=== PATIENT | female | born 1940 | race Caucasian/White ===

== ENCOUNTER 2017-04-22 11:53 | Observation (INO) | payer MEDICARE, OTHER ==
[~2017-04-22] VITALS: Ht 144.8 cm; Wt 41.0 kg
[~2017-04-22 11:53] MED LIST: ADV25050 INH; BENA5TAB2 PO; CALC500T PO; CILO50TA PO; DICL100G37 TOP; ESCI10TA PO; FURO-110 PO; ISOS30TA5 PO; METO-448 PO; NIT4 SL; OMEG-135 PO; OMEP40CA3 PO; PRED10TA PO; RANO10002 PO; SIMV10TA PO; TIOT18CA IH; TRIA15CR55 TOP; VITA1TAB2 PO
[2017-04-22] MEDS ORDERED: ONDANSETRON (ODT) 4 MG TAB ODT STA (12:04)
[2017-04-22] MEDS ORDERED: HYDROCODONE/APAP (5/325) TAB PO ONE (12:30)
--- NOTE | 2017-04-22 12:54 | ERD ---
ER Documentation Chief Complaint Date/Time DATE: 04/22/17 TIME: 12:51 Chief Complaint HPI This is a 76-year-old female who presents via EMS with mechanical fall and right shoulder pain. An wax pattern repairer was used. She describes just prior to arrival she was in the shower and slipped and fell. The patient now has pain and deformity to the proximal humerus of the right upper extremity. She denies head trauma or loss of consciousness, no neck pain. She describes mild right- sided upper rib pain. No shortness of breath, no abdominal pain or mid back pain. ROS All systems reviewed and are negative except as per history of present illness. Medications Home Meds Reported Medications Prednisone* (Prednisone*) 10 Mg Tab, 40 MG PO FOR 2 DAYS, TAB 07/23/14 Cilostazol* (Cilostazol*) 50 Mg Tablet, 50 MG PO BID, TAB 07/23/14 Diclofenac Sodium* (Voltaren* Gel) 1% -100 Gm Gel, 2 GM TOP TID, TUB 07/23/14 Salmeterol Xinaf/Fluticasone* (Advair*) 250-50 Diskus Inhaler, 1 INH INH BID, INH 07/23/14 Triamcinolone Acetonide* (Kenalog*) 0.1%-15GM Cr, 1 APPLIC TOP BID, EA 07/23/14 Calcium Carbonate* (Os-Shay 500*) 1 Tab Tablet, 1 TAB PO TID, TAB 07/23/14 Simvastatin* (Zocor*) 10 Mg Tablet, 10 MG PO HS, TAB 07/23/14 Tiotropium [place]* (Spiriva*) 18 Mcg Cap.w.dev, 1 INH IH DAILY, EA 07/23/14 Escitalopram Oxalate* (Lexapro*) 10 Mg Tablet, 10 MG PO DAILY, TAB 07/23/14 Vitamin B Complex (Super B Complex) 1 Tab Tablet, 1 TAB PO DAILY 07/23/14 Fish Oil* (Fish Oil*) 1,000 Mg Cap, 1000 MG PO DAILY, CAP 07/23/14 Ranolazine* (Ranexa*) 1,000 Mg Tab.sr.12h, 1000 MG PO QHS, TAB 07/23/14 Omeprazole* (Prilosec*) 40 Mg Capsule.dr, 40 MG PO DAILY, CAP 07/23/14 Nitroglycerin* (Nitrostat*) 0.4 Mg Tab.subl, 0.4 MG SL Q5MIN Y for CHEST PAIN, BOTTLE 07/23/14 Metoprolol Tartrate* (Lopressor*) 25 Mg Tab, 25 MG PO DAILY, TAB 07/23/14 Isosorbide Mononitrate* (Isosorbide Mononitrate*) 30 Mg Tab.er.24h, 30 MG PO BID , TAB 07/23/14 Furosemide* (Lasix*) 20 Mg Tablet, 20 MG PO DAILY, TAB 07/23/14 Benazepril Hcl* (Benazepril Hcl*) 5 Mg Tablet, 5 MG PO DAILY, TAB 07/23/14 Allergies Allergies: Coded Allergies: dexamethasone (Verified Allergy, Intermediate, SKIN RASHES REDNESS, ) Uncoded Allergies: UNKNOWN ANTIHYPERTENSIVE (Allergy, Severe, 04/30/11) PMhx/Soc History of Surgery: Yes (tubal ligation) Anesthesia Reaction: No Hx Neurological Disorder: No Hx Respiratory Disorders: Yes (copd,pulmonary fibrosis) Hx Cardiac Disorders: Yes (htn) Hx Psychiatric Problems: No Hx Miscellaneous Medical Probl: Yes (HTN) Hx Alcohol Use: No Hx Substance Use: No Hx Tobacco Use: No Smoking Status: Never smoker FmHx Family History: No diabetes Physical Exam Vitals Vital Signs Date Time Temp Pulse Resp B/P Pulse Ox O2 Delivery O2 Flow Rate FiO2 04/22/17 12:38 99.9 74 16 177/75 92 Physical Exam Airway is intact Bilateral breath sounds Strong distal pulses No obvious deficits General: Well developed, well nourished, no acute distress Head: Normocephalic, atraumatic Eyes: Pupils equally reactive, EOM intact ENT: Moist mucous membranes Neck: Supple, no lymphadenopathy, No midline tenderness, deformities, step-offs to the cervical spine, full active and passive range of motion without midline pain. Respiratory: Lungs clear bilaterally, no distress, Mild upper right sided chest wall tenderness, no crepitus Cardiovascular: RRR, no murmurs, rubs, or gallops Abdominal: Soft, non-tender, non-distended, no peritoneal signs, pelvis is stable : Deferred MSK: Soft tissue tenderness and deformity noted the proximal humerus of the right upper extremity with limited range of motion secondary to pain. No tenderness to the elbow or wrist. 2+ radial and ulnar pulses. No other bony abnormalities are noted. No edema, no unilateral swelling, 5/5 strength, no midline tenderness deformities or step-offs to the thoracolumbar spine Neurologic: Alert and oriented, moving all extremities, normal speech, no focal weakness, no cerebellar signs Skin: No ecchymoses or bruising to the chest or abdomen Psych: Normal mood Results 24 hrs Current Medications Medications (Trade) Dose Ordered Sig/Carolyn Route PRN Reason Start Time Stop Time Status Last Admin Dose Admin Acetaminophen/ Hydrocodone Bitart ([place] (5/325)) 1 tab ONCE ONCE PO 04/22/17 12:30 04/22/17 12:31 DC 04/22/17 13:28 Ondansetron HCl 4 mg 4 mg ONCE STAT ODT 04/22/17 12:04 04/22/17 12:06 DC 04/22/17 13:28 Sodium Chloride (NS) 500 ml @ 500 mls/hr Q1H STAT IV 04/22/17 13:50 04/22/17 14:49 DC Procedures/MDM EKG, MONITORS, & DIAGNOSTIC IMAGING: EKG: I reviewed and interpreted a 12-lead EKG. Rhythm: Normal sinus rhythm Ectopy: None Intervals: No abnormalities ST segments: No elevations or depressions T waves: No contiguous inversions X-ray right shoulder: I reviewed and interpreted multiple views of the x-ray Bones: No evidence of acute fracture dislocation or subluxation Soft tissue: No evidence of foreign body Chest x-ray: I reviewed and interpreted a 2 view of the chest Mediastinum: No enlargement Cardiac silhouette: No cardiomegaly Airspace: Clear lung floyd bilaterally without evidence of pneumothorax Bones: No evidence of fracture X-ray pelvis: I reviewed and interpreted 1 view of the pelvis, there is no evidence of acute fracture, dislocation, subluxation, or foreign body. Interpretation: No acute process. X-ray right humerus: I reviewed and interpreted multiple views of the x-ray Bones: No evidence of acute fracture dislocation or subluxation Soft tissue: No evidence of foreign body CT brain: No evidence of acute intracranial process per radiology read CT lumbar spine: No evidence of acute fracture dislocation or subluxation per radiology read X-ray left knee: I reviewed and interpreted multiple views of the x-ray Bones: No evidence of acute fracture dislocation or subluxation Soft tissue: No evidence of foreign body MEDICAL DECISION MAKING: Clear mechanical fall is noted without evidence of syncope or seizure. The patient has focal tenderness of the right shoulder and likely proximal humerus fracture. Sling would be appropriate. No compartment syndrome, neurovascular intact. No head trauma with reliable exam and history. The patient does not meet high-risk criteria and based on NEXUS cervical spine criteria there is no indication for cervical spine imaging at this time. ER COURSE: The patient's daughter has arrived. She asked to speak me multiple times and was concerned and felt that the patient required a whole body CAT scan. She states that in the past at other hospitals she has received a cast pain from her head to her toes. She states that because of the fall and history of osteoporosis she is concerned may be fractures anywhere in the body and that she needs a whole body CAT scan. I explained to the family member that this is not routine. I have evaluated the patient multiple times. Over this timeframe the patient and daughter now complaining of left knee pain, right hip pain. The daughter is also stating that the patient is not responding like she normally does. She normally walks and is having difficulty even getting out of bed. For this reason I have expanded diagnostic imaging to include CT head, CT lumbar spine, x-ray pelvis and x-ray left knee. There is initially noted some small abrasion to the right hip. Normal internal and external rotation of bilateral hips. The patient's x-ray of the right shoulder was negative. The patient still complains of right arm pain but has improved range of motion. X-ray of the humerus will be obtained. Given that the patient's daughter still has persistent concerns and states that the patient has not returned to her baseline and believe she would benefit from inpatient hospitalization for further monitoring. Basic blood work and urinalysis obtained. EKG obtained. The patient will be admitted for further management and observation, evaluation with PT OT and consideration for rehab or half-way placement. I kept the patient and/or family informed of laboratory and diagnostic imaging results throughout the emergency room course. DISPOSITION PLAN: Medical surgical admission CONSULTATION: Accepting care team and consultations: I discussed the current laboratory data, diagnostic imaging and emergency care provided. Admitting team:Dr. Gunter Admitting team indication: Insurance directed Laboratory analysis pending, these are not required for ER evaluation and are ordered to facilitate intake and inpatient hospitalization. These will be followed by admitting team. Departure Diagnosis: Primary Impression: Contusion of right shoulder Encounter type: initial encounter Qualified Code: S40.011A - Contusion of right shoulder, initial encounter Additional Impressions: Generalized weakness Contusion of left knee Encounter type: initial encounter Qualified Code: S80.02XA - Contusion of left knee, initial encounter Contusion of right hip Encounter type: initial encounter Qualified Code: S70.01XA - Contusion of right hip, initial encounter Condition: CAROLYN Ybarra MD Apr 22, 2017 12:54
--- NOTE | 2017-04-22 13:24 | RADRPT ---
PROCEDURE: XR Chest. CLINICAL INDICATION: Fall. Chest pain. TECHNIQUE: Single AP portable chest. COMPARISON: 10/20/2015 Chest x-ray FINDINGS: Marked cardiomegaly with tortuosity and ectasia of the thoracic aorta. Prominence of the central pul monary vascularity. Chronic hyperinflation and interstitial fibrotic changes compatible with COPD. Atherosclerotic calcification of the aorta. The lungs are clear without pleural effusion or focal consolidation. No pneumothorax. Osteopenia. IMPRESSION: 1. Cardiomegaly and COPD . 2. Chronic interstitial lung disease. RPTAT:AAJJ Physician Richar Date Time Electronically viewed and signed by Physician Richar on 04/22/2017 13:24 WANDA/
--- NOTE | 2017-04-22 13:27 | RADRPT ---
PROCEDURE: XR left shoulder. CLINICAL INDICATION: PAIN TECHNIQUE: AP, Internal and external rotation views of the left shoulder were performed. COMPARISON: None. FINDINGS: Osteopenia. No fracture or dislocation. The humeral head articulates with the glenoid. The acromioclavicular joint is unremarkable. There are normal joints without evidence of arthritis or dislocation. The soft tissues are unremarkable. IMPRESSION: 1. Osteopenia. No fracture or dislocation. RPTAT:AAJJ Physician Richar Date Time Electronically viewed and signed by Physician Richar on 04/22/2017 13:26 WANDA/
[2017-04-22] MEDS ORDERED: SOD CHLORIDE 0.9% 500 ML IV STA (13:50)
--- NOTE | 2017-04-22 14:37 | RADRPT ---
PROCEDURE: XR Pelvis 1 View. CLINICAL INDICATION: Pelvic pain and trauma. TECHNIQUE: Single AP view of the pelvis. COMPARISON: No prior studies are available for comparison. FINDINGS: Osteopenia is identified. The osseous structures appear intact. No destructive bony lesions are ob served. Moderate narrowing of the bilateral hip joints is identified. Degenerative changes are see n in the lower lumbar spine. The soft tissues are unremarkable. IMPRESSION: No visualized traumatic injury. Osteopenia. Moderate osteoarthritis of both hips. Degenerative changes in the lower lumbar spine. If there is high clinical suspicion for traumatic injury, further evaluation with CT should be consi dered. RPTAT: AA .Salvador Mccabe MD, Date Time Electronically viewed and signed by .Salvador Mccabe MD, on 04/22/2017 14:37 .P/
--- NOTE | 2017-04-22 14:38 | RADRPT ---
PROCEDURE: CT head without intravenous contrast CLINICAL INDICATION: Trauma. Headache and weakness. COMPARISON: CT 07/23/2014. TECHNIQUE: Axial CT images from skull base to vertex with coronal and sagittal reformats. DOSE: The estimated administered radiation dose was CTDI vol = 44 mGy. DLP = 630 mGy-cm. One or mor e of the following dose reduction techniques were used: automated exposure control, adjustment of th e mA and/or kV according to patient size, or use of iterative reconstruction. FINDINGS: Parenchyma: No acute hemorrhage, large territorial infarction, or mass. Mild amount of periventricul ar and subcortical white matter hypodensity, a nonspecific finding often associated with chronic sherrie roangiopathy. Ventricles: No ventriculomegaly or ventricular effacement. Extra-axial spaces: No herniation or midline shift. Paranasal sinuses: Clear. Mastoids and middle ears: Clear. Visualized orbits: Normal. Vessels: Mild calcified atherosclerotic arterial plaque. Bones: Diffuse osteopenia. A well-circumscribed lucent lesion in the left frontal calvarium with te ars of the transition is unchanged from 07/23/2014, and likely benign given long-term stability. Extracranial soft tissues: Normal. Additional comment: None. IMPRESSION: 1. Mild white matter changes, a nonspecific finding often associated with chronic microangiopathy. 2. Diffuse osteopenia. RPTAT: PP Physician Yonatan Date Time Electronically viewed and signed by Physician Yonatan on 04/22/2017 14:37 LG/
--- NOTE | 2017-04-22 14:38 | RADRPT ---
PROCEDURE: XR Knee 3 Views. CLINICAL INDICATION: Left knee pain and trauma. TECHNIQUE: AP, lateral and oblique view of the left knee were obtained. The images reviewed on a PACS workstation. COMPARISON: None. FINDINGS: Osteopenia is seen. The osseous structures appear intact. No destructive bony lesions are observed . Interosseous spaces are normal. Small to moderate suprapatellar joint effusion is observed. IMPRESSION: Osteopenia. Small to moderate suprapatellar joint effusion. Ligamentous and tendinous injury is not excluded. I f characterization of the ligaments and tendons is needed MRI is recommended. If there is high clinical suspicion for bony traumatic injury, further evaluation with CT should be considered. RPTAT: AA .Salvador Mccabe MD, Date Time Electronically viewed and signed by .Salvador Mccabe MD, on 04/22/2017 14:38 .P/
--- NOTE | 2017-04-22 14:43 | RADRPT ---
PROCEDURE: CT lumbar spine without contrast. CLINICAL INDICATION: Trauma, fall, back pain TECHNIQUE: CT of the lumbar spine without contrast was performed on a multidetector CT scanner, wi th multiplanar reformats. One or more of the following dose reduction techniques were used: Automat ed exposure control, adjustment in mA and / or kV according to patient size, use of iterative recons tructive technique. CTDIvol = 12 mGy and DLP = 253 mGy-cm. COMPARISON: None available. FINDINGS: No fracture is identified. There is generalized osteopenia. There is moderate - severe levoconvex scoliosis centered near the thoracolumbar junction and grade 1 anterolisthesis at L5-S1. Vertebral b odies are maintained in height. Anterior osteophytes are seen at L3-4 through L5-S1. There is disk space narrowing, moderate - severe at L5-S1 on the left with vacuum disk changes, and mild at L1-2 through L3-4 on the right. T12-L1: No disk bulge or herniation is seen. There is mild facet arthropathy. No central canal george nosis is identified. There is mild - moderate right foraminal narrowing.. L1-L2: No disk bulge or herniation is seen. There is mild facet arthropathy. No central canal sten osis is identified. There is mild right foraminal narrowing. L2-L3: No disk bulge or herniation is seen. There is mild facet arthropathy. No central canal sten osis or foraminal narrowing is identified. L3-L4: There is mild posterior disk bulging and facet arthropathy with ligamentum flavum hypertrophy . No significant central canal stenosis is identified. There is mild right foraminal narrowing. L4-L5: There is mild post disk bulging and moderate to severe facet arthropathy on the left, with mi ld central canal stenosis identified. There is mild bilateral foraminal narrowing. L5-S1: There is posterior disk bulging and moderate to severe facet arthropathy, greater on the left with ligamentum flavum hypertrophy. There is mild-moderate central canal stenosis with left latera l recess narrowing. There is moderate - severe left foraminal narrowing. IMPRESSION: 1. No fracture identified. 2. Lumbar spondylosis/degenerative enthesopathy, most pronounced at L5-S1 with grade 1 anterolisthe sis at this level. 3. Moderate to severe levoconvex thoracolumbar scoliosis. 4. Mild - moderate central canal stenosis with left lateral recess narrowing at L5-S1. 5. Mild central canal stenosis at L4-5. 6. Multilevel foraminal narrowing detailed above. 7. Osteopenia. RPTAT: VV .Ganesh Mccarthy MD, Date Time Electronically viewed and signed by .Ganesh Mccarthy MD, on 04/22/2017 14:43 .O/
--- NOTE | 2017-04-22 15:14 | RADRPT ---
PROCEDURE: XR Humerus. CLINICAL INDICATION: Fall TECHNIQUE: AP and lateral views of the right humerus were obtained. COMPARISON: No prior studies are available for comparison. FINDINGS: There is no acute osseous or articular abnormality. No evidence for fracture. Bone mineral density is decreased. The articular surfaces are smooth without evidence of marginal erosions. The elbow petra int and shoulder joint are grossly maintained, although incompletely assessed. The soft tissues are intact without evidence of calcifications. IMPRESSION: 1. Decreased bone mineral density without radiographic evidence for fracture. RPTAT: VV .Shawn Oden MD, MD Date Time Electronically viewed and signed by .Shawn Oden MD, MD on 04/22/2017 15:13 .d/
[2017-04-22] MEDS ORDERED: ONDANSETRON 4 MG INJ IV PRN ×2 (15:30→17:00)
[2017-04-22] MEDS ORDERED: ACETAMINOPHEN 325 MG TAB PO PRN ×2 (15:30→17:00)
[2017-04-22] MEDS ORDERED: IPRA4AER INHALATION (15:44)
[2017-04-22] MEDS ORDERED: CALC-84 PO (15:45)
[2017-04-22] MEDS ORDERED: CILO50TA PO (15:46)
[2017-04-22] MEDS ORDERED: OMEG-135 PO (15:47)
[2017-04-22] MEDS ORDERED: FURO20TA3 PO (15:48)
[2017-04-22] MEDS ORDERED: ADV50050 INHALATION (15:48)
[2017-04-22] MEDS ORDERED: ISOS60TA PO (15:49)
[2017-04-22] MEDS ORDERED: METO-448 PO (15:49)
[2017-04-22] MEDS ORDERED: MULT-105 PO (15:50)
[2017-04-22] MEDS ORDERED: NIT4 SL (15:50)
[2017-04-22] MEDS ORDERED: PANT40TA4 PO (15:51)
[2017-04-22] MEDS ORDERED: RANO10002 PO (15:52)
[2017-04-22] MEDS ORDERED: SIMV10TA PO (15:52)
[2017-04-22] MEDS ORDERED: TIOT18CA INHALATION (15:53)
[2017-04-22] MEDS ORDERED: CARAS PO (15:53)
[2017-04-22] MEDS ORDERED: TRAM-40 PO (15:54)
[2017-04-22] MEDS ORDERED: URSO250T10 PO (15:54)
[2017-04-22] MEDS ORDERED: VITBC GTB (15:56)
[2017-04-22 16:07] LABS: ADD UMIC NO; UR ASCORBIC ACID NEGATIVE (NEGATIVE); UR BILIRUBIN (Dip) NEGATIVE (NEGATIVE); UR BLOOD (Dip) NEGATIVE (NEGATIVE); UR CLARITY CLEAR (CLEAR); UR COLOR STRAW (YELLOW); UR GLUCOSE (Dip) NEGATIVE (NEGATIVE); UR KETONES (Dip) TRACE mg/dL (NEGATIVE); UR LEUKOCYTE ESTERASE (Dip) NEGATIVE Leu/ul (NEGATIVE); UR NITRITE (Dip) NEGATIVE (NEGATIVE); UR SPECIFIC GRAVITY (Dip) 1.008 (1.003-1.030); UR TOTAL PROTEIN (Dip) NEGATIVE (NEGATIVE); UR UROBILINOGEN (Dip) NEGATIVE (NEGATIVE)
[2017-04-22 16:10] LABS: BASOPHIL # 0.1 10^3/ul (0.0-0.1); BASOPHILS % 0.4 % (0.0-2.0); EOSINOPHILS # 0.1 10^3/ul (0.0-0.5); EOSINOPHILS % 0.9 % (0.0-7.0); HEMATOCRIT 36.3 % (37.0-47.0); HEMOGLOBIN 11.6 g/dl (12.0-16.0); LYMPHOCYTES # 1.3 10^3/ul (0.8-2.9); MEAN CORPUSCULAR HEMOGLOBIN 24.9 pg (29.0-33.0); MEAN CORPUSCULAR VOLUME 77.9 fl (82.0-101.0); MEAN PLATELET VOLUME 9.5 fl (7.4-10.4); MONOCYTE # 0.9 10^3/ul (0.3-0.9); MONOCYTES % 7.3 % (0.0-11.0); NEUTROPHILS % 80.5 % (39.0-77.0); PLATELET COUNT 219 10^3/UL (140-415); RED BLOOD COUNT 4.66 10^6/ul (4.20-5.40); WHITE BLOOD COUNT 12.6 10^3/ul (4.8-10.8)
[2017-04-22 16:26] LABS: ALANINE AMINOTRANSFERASE 29 IU/L (13-69); ALBUMIN 3.6 g/dl (3.3-4.9); ALBUMIN/GLOBULIN RATIO 1.16; ALKALINE PHOSPHATASE 98 IU/L (42-121); ANION GAP 16 (8-16); ASPARTATE AMINO TRANSFERASE 24 IU/L (15-46); BILIRUBIN,INDIRECT 0.7 mg/dl (0-1.1); BILIRUBIN,TOTAL 0.7 mg/dl (0.2-1.3); BLOOD UREA NITROGEN 11 mg/dl (7-20); CALCIUM 8.9 mg/dl (8.4-10.2); CARBON DIOXIDE 31 mmol/L (21-31); CHLORIDE 98 mmol/L (97-110); CREATININE 0.55 mg/dl (0.44-1.00); GLUCOSE 83 mg/dl (70-220); POTASSIUM 4.2 mmol/L (3.5-5.1); SODIUM 141 mmol/L (135-144); TOTAL PROTEIN 6.7 g/dl (6.1-8.1)
[2017-04-22 16:42] LABS: TROPONIN-I < 0.012 ng/ml (0.00-0.12)
--- NOTE | 2017-04-22 16:57 | HP ---
Date/Time of Note Date/Time of Note DATE: 04/22/17 TIME: 16:49 Assessment/Plan VTE Prophylaxis VTE Prophylaxis Intervention: LMWH Assessment/Plan Chief Complaint/Hosp Course 1. Debility secondary to diffuse body pain from fall Has had multiple imaging modalities with no evidence of fracture and pain is from bruising PT eval 2. Presyncope 2D echo and carotid ultrasound 3. Hypertension Continue home medications 4. COPD-stable 5. History of MT-no reported stents placed 6. History of CHF-unknown baseline EF Prophylaxis: Lovenox Problems: HPI/ROS Admit Date/Time Admit Date/Time April 22, 2017 Hx of Present Illness Patient is a 76-year-old female with history of MT, osteoporosis hypertension. Patient presents after having fallen in the bathroom. She states that she felt lightheaded and that her vision went dark prior to her fall. Patient now has diffuse body pain, in the ED imaging was done that showed no fracture. Patient has significant pain and is unable to ambulate at this time ROS Constitutional: improved, no complaints Eyes: no complaints ENT: no complaints Respiratory: no complaints Cardiovascular: no complaints Gastrointestinal: no complaints Genitourinary: no complaints Musculoskeletal: back pain, bone/joint pain Skin: no complaints Neurologic: no complaints Endocrine: no complaints Lymphatic: no complaints Psychological: nl mood/affect, no complaints Immunologic: no complaints PMH/Family/Social Past Medical History Medical History: congestive heart failure, coronary artery disease, hypertension, other (COPD) Past Surgical History WINDOWS DESKTOP SUPPORT surgery unclear what type Family History Significant Family History: no pertinent family hx Social History Alcohol Use: none Smoking Status: Never smoker Drug Use: none Exam/Review of Systems Vital Signs Vitals Vital Signs Date Time Temp Pulse Resp B/P Pulse Ox O2 Delivery O2 Flow Rate FiO2 04/22/17 15:41 98.2 80 18 171/77 95 Nasal Cannula 2.0 Exam Constitutional: alert, oriented Head: normocephalic Respiratory: clear to auscultation Cardiovascular: regular rate and rhythm Gastrointestinal: soft, No distended Musculoskeletal: nl extremities to inspection Labs Result Diagram: 04/22/17 1550 04/22/17 1550 GEOVANI ALFARO Apr 22, 2017 16:57
[2017-04-22] MEDS ORDERED: HYDROCODONE/APAP (5/325) TAB PO PRN (17:00)
[2017-04-22] MEDS ORDERED: NACL 0.9% 3 ML SYG IV SCH (17:00)
[2017-04-22] MEDS ORDERED: DOCUSATE SODIUM 100 MG CAP PO PRN (17:00)
[2017-04-22] MEDS ORDERED: NITROGLYCERIN (SL) 0.4 MG TAB SL PRN (17:00)
[2017-04-22] MEDS ORDERED: traMADol 50 MG TAB PO PRN (17:00)
[2017-04-22] MEDS ORDERED: MAGNESIUM HYDROXIDE 30ML CUP PO PRN (17:00)
--- NOTE | 2017-04-22 18:52 | RADRPT ---
PROCEDURE: US Carotids. CLINICAL INDICATION: Presyncope. TECHNIQUE: Sonographic images of the bilateral carotid arteries were obtained using lino scale and color Doppler imaging. The images were reviewed on a PACS workstation. COMPARISON: None available. FINDINGS: Right: CCA 61-80 cm/sec Prox ICA 54 cm/sec Mid ICA 45 cm/sec Dist ICA 83 cm/sec ECA 72 cm/sec ICA/CCA 1.0 Left: CCA 86-114 cm/sec Prox ICA 57 cm/sec Mid ICA 91 cm/sec Dist ICA 69 cm/sec ECA 46 cm/sec ICA/CCA 1.1 Antegrade flow is seen within the vertebral arteries bilaterally. There is minimal plaque in the rig ht ICA and left carotid bulb. There is no flow-limiting stenosis or thrombosis. IMPRESSION: 1. No evidence of hemodynamically significant internal carotid artery stenosis bilaterally. 2. Antegrade flow seen within the vertebral arteries bilaterally. RPTAT: HLBP Validated velocity measurements with angiographic measurements, velocity criteria are extrapolated f rom diameter data as defined by the Society of Radiologists in Ultrasound Consensus Conference Radio logy 2003; 229;340-346. This study does indirectly reference the measurement of the distal ICA diame ter as the denominator for stenosis measurement. SRU Consensus Conference Criteria for the Diagnosis of Carotid Artery Stenosis Degree of Stenosis, % ICA PSV, cm/sec Plaque Estimate, % ICA/CCA PSV Ratio Normal <125 None <2.0 <50 <125 <50 <2.0 50 69 125-230 >50 2.0-4.0 >70 but less than near occlusion >230 >50 <4.0 Near occlusion High, low, or undetectable Visible Variable Total occlusion Undetectable Visible, no detectable lumen Not applicable .Benji Rebolledo MD, MD Date Time Electronically viewed and signed by .Benji Rebolledo MD, MD on 04/22/2017 18:52 .P/
[2017-04-22 19:31] VITALS: PULSE 90; TEMP 98.1
[2017-04-22 20:14] VITALS: BP 172/83; RESP 19
[2017-04-22 20:43] VITALS: Ht 144.8 cm; Wt 41.0 kg
[2017-04-22] MEDS ORDERED: NON-FORMULARY/PATIENT OWN MED (Albuterol/Ipratropium* (Combivent Respimat*) 1 PUFF) INHALATION SCH (21:00)
[2017-04-22 22:12] VITALS: BP 139/89
[2017-04-22] MEDS: SALMETEROL/FLUTICASONE 500/50 INHA INH SCH (22:12)
[2017-04-22] MEDS: SUCRALFATE (100 MG/ML) 10ML CUP PO SCH (22:12)
[2017-04-22] MEDS: ATORVASTATIN 10 MG TAB PO SCH (22:13)
[2017-04-22] MEDS: METOPROLOL 25 MG TAB PO SCH (22:14)
[2017-04-22] MEDS: CILOSTAZOL 100 MG TAB PO SCH (22:14)
[2017-04-22] MEDS: CALCIUM/VITAMIN D (500/200) TAB PO SCH (22:14)
[2017-04-22] MEDS: morphine 2 MG INJ IV PRN (22:19)
[2017-04-22] MEDS: ISOSORBIDE MONONITRATE(SR)60 MG TAB PO SCH (22:45)
[2017-04-22] MEDS: URSODIOL 250 MG TAB PO SCH (22:45)
[2017-04-23 02:15] VITALS: BP_SYST 115; BP_SYST 136; BP_DIAS 65; BP_DIAS 68; RESP 18
[2017-04-23] MEDS ORDERED: PANTOPRAZOLE (EC) 40 MG TAB PO SCH (06:00)
[2017-04-23] MEDS: SUCRALFATE (100 MG/ML) 10ML CUP PO SCH ×4 (06:08→20:08)
[2017-04-23] MEDS: morphine 2 MG INJ IV PRN ×2 (06:08→11:19)
[2017-04-23 06:39] LABS: BASOPHILS % 0.5 % (0.0-2.0); EOSINOPHILS # 0.1 10^3/ul (0.0-0.5); EOSINOPHILS % 0.7 % (0.0-7.0); HEMATOCRIT 35.3 % (37.0-47.0); HEMOGLOBIN 11.2 g/dl (12.0-16.0); LYMPHOCYTES # 0.9 10^3/ul (0.8-2.9); MEAN CORPUSCULAR HEMOGLOBIN 24.4 pg (29.0-33.0); MEAN CORPUSCULAR HGB CONC 31.7 g/dl (32.0-37.0); MEAN CORPUSCULAR VOLUME 76.9 fl (82.0-101.0); MEAN PLATELET VOLUME 10.2 fl (7.4-10.4); MONOCYTE # 0.6 10^3/ul (0.3-0.9); MONOCYTES % 7.4 % (0.0-11.0); NEUTROPHILS % 79.6 % (39.0-77.0); PLATELET COUNT 220 10^3/UL (140-415); RED BLOOD COUNT 4.59 10^6/ul (4.20-5.40); RED CELL DISTRIBUTION WIDTH 19.4 % (11.5-14.5); WHITE BLOOD COUNT 8.5 10^3/ul (4.8-10.8)
[2017-04-23 06:59] LABS: CALCIUM 8.7 mg/dl (8.4-10.2); CREATININE 0.56 mg/dl (0.44-1.00); MAGNESIUM 1.5 mg/dl (1.7-2.5); PHOSPHORUS 3.7 mg/dl (2.5-4.9); POTASSIUM 4.6 mmol/L (3.5-5.1)
[2017-04-23 07:10] LABS: IRON 41 ug/dl (35-150)
[2017-04-23 07:19] LABS: TOTAL IRON BINDING CAPACITY 315 ug/dl (241-421)
[2017-04-23 08:00] VITALS: BP 105/76; RESP 20
[2017-04-23] MEDS ORDERED: RANOLAZINE (SR) 500 MG TAB PO SCH (09:00)
[2017-04-23] MEDS ORDERED: FUROSEMIDE 20 MG TAB PO SCH (09:00)
[2017-04-23] MEDS ORDERED: ENOXAPARIN 40 MG/0.4 ML SYG SC SCH (09:00)
[2017-04-23] MEDS ORDERED: TIOTROPIUM 18 MCG CAPSULE INHA DEV INH SCH (09:00)
[2017-04-23] MEDS ORDERED: VITAMIN B COMPLEX/VIT C CAP PO SCH (09:00)
[2017-04-23] MEDS ORDERED: MULTIVITAMINS/MINERALS TAB PO SCH (09:00)
[2017-04-23] MEDS ORDERED: FISH OIL 1,000 MG CAP PO SCH (09:00)
[2017-04-23] MEDS: SALMETEROL/FLUTICASONE 500/50 INHA INH SCH ×2 (11:33→20:10)
[2017-04-23] MEDS: URSODIOL 250 MG TAB PO SCH ×2 (11:34→20:09)
[2017-04-23] MEDS: ISOSORBIDE MONONITRATE(SR)60 MG TAB PO SCH ×2 (11:35→20:10)
[2017-04-23] MEDS: CALCIUM/VITAMIN D (500/200) TAB PO SCH ×2 (11:35→20:09)
[2017-04-23] MEDS: CILOSTAZOL 100 MG TAB PO SCH ×2 (11:35→20:10)
[2017-04-23] MEDS: METOPROLOL 25 MG TAB PO SCH ×2 (11:36→20:09)
[2017-04-23 15:37] VITALS: BP 135/68; RESP 18
[2017-04-23] MEDS ORDERED: MAGNESIUM SULFATE 4 GM/100 ML 100 ML IVPB ONE (16:30)
--- NOTE | 2017-04-23 17:46 | DS ---
Date/Time of Note Date/Time of Note DATE: 04/23/17 TIME: 17:42 Discharge Summary Admission/Discharge Info Admit Date/Time Apr 22, 2017 at 15:29 Discharge Date/Time April 23, 2017 Discharge Diagnosis 1. Debility secondary to diffuse body pain from fall Has had multiple imaging modalities with no evidence of fracture and pain is from bruising Transfer to acute rehab 2. Presyncope Carotid ultrasound shows no stenosis 3. Hypertension Continue home medications 4. COPD-stable 5. History of LA-no reported stents placed 6. History of CHF-unknown baseline EF Follow-up on 2D echo Prophylaxis: Lovenox Patient Condition: Fair Hospital Course Patient is a 76-year-old female with history of LA, osteoporosis hypertension. Patient presents after having fallen in the bathroom. She states that she felt lightheaded and that her vision went dark prior to her fall. Patient now has diffuse body pain, in the ED imaging was done that showed no fracture. Patient has significant pain and is unable to ambulate at this time. Patient felt to require further physical therapy to assist with ambulation and patient transferred to acute rehab. Carotid ultrasound showed no stenosis. On the day of discharge patient's vitals, labs and physical exam are stable. Home Meds Reported Medications Vitamin B Complex/Vit C (Total B with C) 1 Each Tablet, 1 EACH GTB DAILY, TAB 04/22/17 Ursodiol* (Ursodiol*) 250 Mg Tablet, 250 MG PO BID, TAB 04/22/17 Tramadol Hcl* (Ultram*) 50 Mg Tablet, 50 MG PO Q6H Y for PAIN, TAB 04/22/17 Tiotropium [place]* (Spiriva*) 18 Mcg Cap.w.dev, 1 CAP INHALATION DAILY, #30 CAP 04/22/17 Sucralfate* (Carafate*) 1 Gm/10 Ml Susp, 1 GM PO QID, EA 04/22/17 Simvastatin* (Zocor*) 10 Mg Tablet, 10 MG PO QHS, #30 TAB 04/22/17 Ranolazine* (Ranexa*) 1,000 Mg Tab.sr.12h, 1000 MG PO DAILY, TAB 04/22/17 Pantoprazole* (Pantoprazole*) 40 Mg Tablet.dr, 40 MG PO AC BREAKFAST, TAB 04/22/17 Nitroglycerin* (Nitrostat*) 0.4 Mg Tab.subl, 0.4 MG SL Q5MIN Y for CHEST PAIN, BOTTLE 04/22/17 Multivitamin with Minerals (Multivitamins with Minerals) 1 Each Tablet, 1 EACH PO DAILY, TAB 04/22/17 Metoprolol Tartrate* (Lopressor*) 25 Mg Tab, 25 MG PO BID, #60 TAB 04/22/17 Isosorbide Mononitrate* (Isosorbide Mononitrate*) 60 Mg Tab.er.24h, 60 MG PO BID , TAB 04/22/17 Furosemide* (Furosemide*) 20 Mg Tablet, 20 MG PO DAILY, #60 TAB 04/22/17 Salmeterol Xinaf-Fluticasone* (Advair*) 500/50 Diskus Inhaler, 1 INH INHALATION BID, #1 INHALER 04/22/17 [place]-3 Fatty Acids/Fish Oil (Fish Oil 1,000 mg Capsule) 1 Each Capsule, 1 EACH PO DAILY, CAP 04/22/17 Cilostazol* (Cilostazol*) 50 Mg Tablet, 50 MG PO BID, TAB 04/22/17 Calcium Carbonate-Vitamin D3 (Calcium 500 + D Tablet) 1 Each Tablet, 1 TAB PO BID, TAB 04/22/17 Albuterol/Ipratropium* (Combivent Respimat*) 20-100 Mcg/Inh - 4 Gm Aer.w.adap, 1 PUFF INHALATION QID, #1 INHALER 04/22/17 Discontinued Reported Medications Prednisone* (Prednisone*) 10 Mg Tab, 40 MG PO FOR 2 DAYS, TAB 07/23/14 Cilostazol* (Cilostazol*) 50 Mg Tablet, 50 MG PO BID, TAB 07/23/14 Diclofenac Sodium* (Voltaren* Gel) 1% -100 Gm Gel, 2 GM TOP TID, TUB 07/23/14 Salmeterol Xinaf/Fluticasone* (Advair*) 250-50 Diskus Inhaler, 1 INH INH BID, INH 07/23/14 Triamcinolone Acetonide* (Kenalog*) 0.1%-15GM Cr, 1 APPLIC TOP BID, EA 07/23/14 Calcium Carbonate* (Os-Shay 500*) 1 Tab Tablet, 1 TAB PO TID, TAB 07/23/14 Simvastatin* (Zocor*) 10 Mg Tablet, 10 MG PO HS, TAB 07/23/14 Tiotropium [place]* (Spiriva*) 18 Mcg Cap.w.dev, 1 INH IH DAILY, EA 07/23/14 Escitalopram Oxalate* (Lexapro*) 10 Mg Tablet, 10 MG PO DAILY, TAB 07/23/14 Vitamin B Complex (Super B Complex) 1 Tab Tablet, 1 TAB PO DAILY 07/23/14 Fish Oil* (Fish Oil*) 1,000 Mg Cap, 1000 MG PO DAILY, CAP 07/23/14 Ranolazine* (Ranexa*) 1,000 Mg Tab.sr.12h, 1000 MG PO QHS, TAB 07/23/14 Omeprazole* (Prilosec*) 40 Mg Capsule.dr, 40 MG PO DAILY, CAP 07/23/14 Nitroglycerin* (Nitrostat*) 0.4 Mg Tab.subl, 0.4 MG SL Q5MIN Y for CHEST PAIN, BOTTLE 07/23/14 Metoprolol Tartrate* (Lopressor*) 25 Mg Tab, 25 MG PO DAILY, TAB 07/23/14 Isosorbide Mononitrate* (Isosorbide Mononitrate*) 30 Mg Tab.er.24h, 30 MG PO BID , TAB 07/23/14 Furosemide* (Lasix*) 20 Mg Tablet, 20 MG PO DAILY, TAB 07/23/14 Benazepril Hcl* (Benazepril Hcl*) 5 Mg Tablet, 5 MG PO DAILY, TAB 07/23/14 Follow-up Plan Follow-up with physicians at rehab Primary Care Provider Danny Castellanos Time spent on discharge: > 30 minutes Pending Labs GEOVANI Jennings Apr 23, 2017 17:46
[2017-04-23] MEDS: ATORVASTATIN 10 MG TAB PO SCH (20:09)
--- NOTE | 2017-04-23 23:12 | RADRPT ---
Echocardiogram Report Patient Name: KYLE GRAY Gender: Female Date: 1940 Study Date: 23-Apr-2017 Manager Photography: [facility] Location: 2247 Ref. Physician: GEOVANI ALFARO Quality: Technically Difficult Study Procedures: Transthoracic echocardiogram with complete 2D, M-Mode, and doppler examination. Indications: Presyncope. 2D/M Mode Doppler Measurement Value Normal Ranges Measurement Value Normal Ranges LVIDd 2D 3.0 3.5 - 5.6 cm AV Peak David 1.7 m/sec LVIDs 2D 2.4 2.1 - 4.1 cm AV Peak PG 12.0 mmHg FS 2D 19.1 % LVOT Peak David 1.0 m/sec LVPWd 2D 1.3 0.6 - 1.1 cm LVOT Peak PG 4.0 mmHg IVSd 2D 1.3 0.6 - 1.1 cm MV E Peak David 0.8 m/sec IVS/LVPW 2D 1.0 MV A Peak David 1.3 m/sec AoR Diam 2D 2.2 2.0 - 3.7 cm MV E/A 0.6 LA/Ao 2D 2 0 - 1 MV Decel Time 173 msec EDV 2D 26.7 cm3 MV E/A 0.6 ESV 2D 14.2 cm3 TR Peak David 2.8 m/sec LA Dimen 2D 4.0 2.3 - 4.0 cm TR Peak PG 31.0 mmHg RVSP 34.0 mmHg Findings Left Ventricle: Normal left ventricular cavity size. Mild concentric left ventricular hypertrophy. Mild global left ventricular systolic dysfunction. Ejection fraction is visually estimated at 55 %. Tissue Doppler/Mitral Doppler indices are consistent with impaired relaxation (Stage I diastolic dysfunction). Right Ventricle: Normal right ventricular size. Normal right ventricular systolic function. Left Atrium: The left atrium is normal in size. Right Atrium: The right atrium is normal in size. Mitral Valve: Mitral valve leaflets appear mildly thickened. Mild mitral annular calcification. Trace mitral regurgitation. Aortic Valve: Aortic sclerosis without stenosis. Tricuspid Valve: Normal appearance of the tricuspid valve. Estimated peak PA systolic pressure 34 mmHg. There is mild tricuspid regurgitation. Pulmonic Valve: Pulmonic valve not well visualized. There is mild pulmonic regurgitation. Pericardium: Normal pericardium with no significant pericardial effusion. Aorta: Normal aortic root. IVC: Normal size and normal respiratory collapse consistent with normal right atrial pressure. Conclusions 1.Normal left ventricular cavity size. Mild concentric left ventricular hypertrophy. Mild global left ventricular systolic dysfunction. Ejection fraction is visually estimated at 55 %. Tissue Doppler/Mitral Doppler indices are consistent with impaired relaxation (Stage I diastolic dysfunction). 2.Mitral valve leaflets appear mildly thickened. Mild mitral annular calcification. Trace mitral regurgitation. 3.Normal appearance of the tricuspid valve. Estimated peak PA systolic pressure 34 mmHg. There is mild tricuspid regurgitation. 4.Pulmonic valve not well visualized. There is mild pulmonic regurgitation. Electronically Signed By: Rudolph Mir 23-Apr-2017 23:11:48 -0700 Patient Name: KYLE GRAY Study Date: 23-Apr-2017 [id number]
== END 2017-04-23 21:00 ==
LOC: E/R 11:53 → PP2 15:29
PROVIDERS: ADMIT Internal Medicine; ATTEND Internal Medicine
DX: S40.011A Contusion of right shoulder, initial encounter (principal); S80.02XA Contusion of left knee, initial encounter; S70.01XA Contusion of right hip, initial encounter; R53.81 Other malaise; R55 Syncope and collapse; I11.0 Hypertensive heart disease with heart failure; I50.9 Heart failure, unspecified; J44.9 Chronic obstructive pulmonary disease, unspecified; M81.0 Age-related osteoporosis without current pathological fracture; I25.2 Old myocardial infarction; Z88.8 Allergy status to other drugs, medicaments and biological substances; W01.0XXA Fall on same level from slipping, tripping and stumbling without subsequent striking against object, initial encounter; Y93.E1 Activity, personal bathing and showering; Y99.9 Unspecified external cause status; Y92.002 Bathroom of unspecified non-institutional (private) residence as the place of occurrence of the external cause
CPT/HCPCS: 36415; 70450; 71010; 72131; 72170; 73030; 73060; 73562; 80048; 80053; 81003; 83036; 83540; 83735; 84100; 84484; 85025; 93005; 93306; 93880; 97163; 99285; G0378; J1650; J2270; J3475; J7040

== ENCOUNTER 2017-04-23 18:44 | Inpatient (IN) | payer MEDICARE, OTHER ==
[~2017-04-23] VITALS: Ht 144.8 cm; Wt 41.0 kg
[~2017-04-23 18:44] MED LIST changes: -ADV25050 INH; +ADV50050 INHALATION; -BENA5TAB2 PO; +CALC-84 PO; -CALC500T PO; +CARAS PO; -DICL100G37 TOP; -ESCI10TA PO; -FURO-110 PO; +FURO20TA3 PO; +IPRA4AER INHALATION; -ISOS30TA5 PO; +ISOS60TA PO; +MULT-105 PO; -OMEP40CA3 PO; +PANT40TA4 PO; -PRED10TA PO; -TIOT18CA IH; +TIOT18CA INHALATION; +TRAM-40 PO; -TRIA15CR55 TOP; +URSO250T10 PO; -VITA1TAB2 PO; +VITBC GTB
[2017-04-23 21:48] VITALS: BP 149/67; RESP 18
[2017-04-23] MEDS ORDERED: MAGNESIUM HYDROXIDE 30ML CUP PO PRN (22:30)
[2017-04-23] MEDS ORDERED: NITROGLYCERIN (SL) 0.4 MG TAB SL PRN (22:30)
[2017-04-23] MEDS ORDERED: DOCUSATE SODIUM 100 MG CAP PO PRN (22:30)
[2017-04-23] MEDS ORDERED: NACL 0.9% 3 ML SYG IV SCH (22:30)
[2017-04-24] MEDS ORDERED: LACTULOSE 30ML CUP PO PRN
[2017-04-24] MEDS ORDERED: BISACODYL 10 MG SUPP PR PRN
[2017-04-24 02:10] VITALS: BP 106/54; RESP 20
[2017-04-24 05:04] LABS: ADD UMIC YES; UR ASCORBIC ACID NEGATIVE (NEGATIVE); UR BACTERIA FEW /HPF (NONE SEEN); UR BILIRUBIN (Dip) NEGATIVE (NEGATIVE); UR BLOOD (Dip) NEGATIVE (NEGATIVE); UR CLARITY SLIGHTLY CLOUDY (CLEAR); UR COLOR YELLOW (YELLOW); UR GLUCOSE (Dip) NEGATIVE (NEGATIVE); UR KETONES (Dip) NEGATIVE (NEGATIVE); UR LEUKOCYTE ESTERASE (Dip) 1+ Leu/ul (NEGATIVE); UR NITRITE (Dip) POSITIVE (NEGATIVE); UR RBC 1 /HPF (0-5); UR SPECIFIC GRAVITY (Dip) 1.008 (1.003-1.030); UR TOTAL PROTEIN (Dip) NEGATIVE (NEGATIVE); UR UROBILINOGEN (Dip) NEGATIVE (NEGATIVE)
[2017-04-24] MEDS: PANTOPRAZOLE (EC) 40 MG TAB PO SCH (06:52)
[2017-04-24] MEDS: FUROSEMIDE 20 MG TAB PO SCH (06:52)
[2017-04-24 07:52] VITALS: BP 113/56; RESP 18
[2017-04-24 08:29] LABS: BASOPHILS % 0.3 % (0.0-2.0); EOSINOPHILS # 0.2 10^3/ul (0.0-0.5); EOSINOPHILS % 2.5 % (0.0-7.0); HEMATOCRIT 34.7 % (37.0-47.0); HEMOGLOBIN 11.1 g/dl (12.0-16.0); LYMPHOCYTES # 0.9 10^3/ul (0.8-2.9); LYMPHOCYTES % 11.1 % (15.0-51.0); MEAN CORPUSCULAR HEMOGLOBIN 24.4 pg (29.0-33.0); MEAN CORPUSCULAR VOLUME 76.4 fl (82.0-101.0); MEAN PLATELET VOLUME 10.1 fl (7.4-10.4); MONOCYTE # 0.7 10^3/ul (0.3-0.9); MONOCYTES % 8.9 % (0.0-11.0); NEUTROPHILS % 76.6 % (39.0-77.0); PLATELET COUNT 191 10^3/UL (140-415); RED BLOOD COUNT 4.54 10^6/ul (4.20-5.40); RED CELL DISTRIBUTION WIDTH 18.8 % (11.5-14.5); WHITE BLOOD COUNT 7.9 10^3/ul (4.8-10.8)
[2017-04-24 08:51] LABS: ALBUMIN 3.3 g/dl (3.3-4.9); ALBUMIN/GLOBULIN RATIO 1.13; CALCIUM 8.8 mg/dl (8.4-10.2); CREATININE 0.56 mg/dl (0.44-1.00); POTASSIUM 4.4 mmol/L (3.5-5.1); TOTAL PROTEIN 6.2 g/dl (6.1-8.1)
[2017-04-24] MEDS: SUCRALFATE (100 MG/ML) 10ML CUP PO SCH ×4 (09:00→21:15)
[2017-04-24] MEDS: URSODIOL 250 MG TAB PO SCH ×2 (09:01→21:16)
[2017-04-24] MEDS: VITAMIN B COMPLEX/VIT C CAP PO SCH (09:01)
[2017-04-24] MEDS: RANOLAZINE (SR) 500 MG TAB PO SCH (09:01)
[2017-04-24] MEDS: FISH OIL 1,000 MG CAP PO SCH (09:01)
[2017-04-24] MEDS: DOCUSATE SODIUM 100 MG CAP PO SCH ×2 (09:02→21:16)
[2017-04-24] MEDS: CALCIUM/VITAMIN D (500/200) TAB PO SCH ×2 (09:02→21:17)
[2017-04-24] MEDS: MULTIVITAMINS/MINERALS TAB PO SCH (09:02)
[2017-04-24] MEDS: CILOSTAZOL 100 MG TAB PO SCH ×2 (09:02→21:16)
[2017-04-24] MEDS: ENOXAPARIN 40 MG/0.4 ML SYG SC SCH (09:03)
[2017-04-24] MEDS: TIOTROPIUM 18 MCG CAPSULE INHA DEV INH SCH (09:04)
[2017-04-24] MEDS: HYDROCODONE/APAP (5/325) TAB PO PRN (09:04)
[2017-04-24] MEDS: SALMETEROL/FLUTICASONE 500/50 INHA INH SCH ×2 (09:04→21:15)
[2017-04-24] MEDS: ISOSORBIDE MONONITRATE(SR)60 MG TAB PO SCH ×2 (10:25→21:16)
[2017-04-24] MEDS: METOPROLOL 25 MG TAB PO SCH ×2 (10:26→21:17)
--- NOTE | 2017-04-24 12:28 | CONS ---
DATE OF ADMISSION: 04/23/2017 DATE OF CONSULTATION: 04/24/2017 This is a rehabilitation post admission physician evaluation. REHABILITATION IMPAIRMENT CATEGORY: Blunt head trauma with loss of consciousness, status post fall. ACTIVE COMORBIDITIES: 1. Right shoulder tendonitis. 2. Right lower extremity contusion. 3. Acute pain syndrome. 4. Left knee effusion. 5. Hypertension. 6. COPD. 7. Impairments in self-care and mobility. HISTORY OF PRESENT ILLNESS: Patient is a pleasant 76-year-old female, who is status post a mechanical fall in which she was being bathed, slipped and fell, hitting her head with some loss of consciousness. The patient also reported significant right upper and lower extremity pain and left knee pain. Lumbar spine CT did demonstrate lumbar spondylosis, degenerative enthesopathy and grade 1 anterolisthesis at L5-S1. The patient noted to have significant impairments in self-care, mobility and cognition and has been cleared to transfer to the rehabilitation unit for comprehensive interdisciplinary rehab care. FUNCTIONAL HISTORY: Prior to recent events, patient was independent in self-care tasks and mobility. Currently, patient requires maximal assist for self-care and mobility tasks. SOCIAL HISTORY: Patient reports living at home with family and hopes to return there upon discharge. PAST MEDICAL HISTORY: 1. Hypertension. 2. Osteoporosis. 3. History of FL. 4. COPD. MEDICATION: 1. Lipitor 10 mg p.o. q.day. 2. Calcium. 3. Pletal 50 mg p.o. b.i.d. 4. Colace 100 mg p.o. q.12 hours p.r.n. 5. Lovenox 40 mg subcu q.day. 6. Fish oil 1000 mg p.o. q.day. 7. Lasix 20 mg p.o. q.day. 8. [place] p.r.n. 9. Imdur 60 mg p.o. b.i.d. 10. Lopressor 25 mg p.o. b.i.d. 11. Theragran multivitamin 1 tab p.o. q.day. 12. Nitroglycerin p.r.n. 13. Ranexa 1000 mg p.o. q.day. 14. Advair inhaler b.i.d. 15. Carafate 1 g p.o. before meals. 16. Spiriva. 17. Ultram p.r.n. 18. Ursodiol 250 p.o. b.i.d. 19. Vitamin B. ALLERGIES: DEXAMETHASONE. PHYSICAL EXAMINATION: VITAL SIGNS: Patient is currently afebrile with stable vital signs. HEENT: The extraocular motions appear intact. Oropharynx clear. NECK: Supple. LUNGS: Clear anteriorly. HEART: S1, S2. ABDOMEN: Soft, nontender. Positive bowel sounds. NEUROLOGIC: She is awake and alert. She is oriented to person and hospital. She does follow simple one-step commands. She demonstrates antigravity strength in the left upper extremity. She has decreased range of motion with decreased forward flexion and abduction in the right shoulder and pain with right elbow flexion and extension. She has good director investor relations strength. She demonstrates antigravity strength in bilateral lower extremities. PLAN: Patient has been admitted for comprehensive interdisciplinary acute rehab and is anticipated to tolerate 3 hours of daily therapy in divided doses for at least 5/7 days a week. The treatment plan will include: 1. Physical therapy to focus on bed mobility, transfers and household ambulation with goal of having patient reach a standby assist level. 2. Occupational therapy to focus on hygiene, grooming, dressing, bathing and toileting activities with goal to have patient reach standby assist level. 3. Rehabilitation nursing for carry over of therapeutic interventions. The goal of continent to bowel, bladder, and the goal of pain adequately managed on oral medications. 4. Speech therapy for full cognitive assessment and retraining with the goal of having patient return to baseline cognition. ESTIMATED LENGTH OF STAY: 14 days. DISPOSITION GOAL: Home. REHABILITATION BARRIER: Pain. INTERVENTION FOR BARRIER: Comprehensive interdisciplinary approach. I acknowledged I performed a full physical examination on this patient within 24 hours of admission to the rehabilitation unit and believe the patient is a good candidate for comprehensive interdisciplinary rehab care and is anticipated to make reasonable goals in a reasonable period of time as outlined above. Dictated By: Jasmin Nicholas MD /sarath/murtaza /Document#: [id number]
[2017-04-24] MEDS: traMADol 50 MG TAB PO PRN (13:49)
[2017-04-24] MEDS ORDERED: GUAIFENESIN 20 MG/ML 5ML CUP PO PRN (14:00)
[2017-04-24 20:41] VITALS: BP 109/62; RESP 18
[2017-04-24] MEDS: ATORVASTATIN 10 MG TAB PO SCH (21:17)
[2017-04-24] MEDS: SENNA TAB PO SCH (21:18)
--- NOTE | 2017-04-24 22:08 | CONS ---
DATE OF ADMISSION: 04/23/2017 DATE OF CONSULTATION: 04/24/2017 REASON FOR CONSULTATION: Immobility following fracture. HISTORY OF PRESENT ILLNESS: This is a pleasant 76-year-old lady followed by myself and pulmonary office for many years with a history of chronic hypoxemic respiratory failure secondary to COPD and bronchiectasis, who came in having sustained a mechanical fall in the bath, slipped and fell, hitting her head with transient loss of consciousness. CT of the chest was performed and demonstrated lumbar spondylosis with degenerative and grade 1 anterior listhesis at L5 and S1. The patient has significant immobility and is subsequently being admitted for continued physical therapy and overall rehab. PAST MEDICAL HISTORY: As above. MEDICATIONS: Per chart. ALLERGIES: NONE. SOCIAL HISTORY: Nonsmoker. No alcohol. No history of drug use. FAMILY HISTORY: Noncontributory. REVIEW OF SYSTEMS: Twelve point review of systems negative other than mentioned above. PHYSICAL EXAMINATION: GENERAL: An elderly kyphotic lady, comfortable at rest, no acute distress. VITAL SIGNS: Currently afebrile, pulse is 37, blood pressure 113/56, O2 sat 97 percent on 2 L. NECK: Supple. No JVD. HEART: S1, S2. No added sounds or murmurs. CHEST: Diminished air entry bilaterally. ABDOMEN: Soft, nontender. No guarding or rebound. EXTREMITIES: . NEUROLOGIC: Generalized weakness. LABORATORY: White count 7.9, hemoglobin 11.1, platelets 191. BUN 11, creatinine 0.56, sodium 132, leukocyte esterase positive, nitrites are also positive. Urinalysis is pending at this time. IMPRESSION: 1. Mechanical fall. 2. Possible urinary tract infection. 3. Significant kyphoscoliosis with hypoxemic respiratory failure. 4. Restrictive lung disease. PLAN: 1. Continue physical therapy. 2. Pain control. 3. Supplemental O2 with bronchodilators. 4. Check urinalysis again with repeat urine cultures. Dictated By: Nelson Haq MD /sarath/jose l /Document#: [id number]
[2017-04-25] MEDS: PANTOPRAZOLE (EC) 40 MG TAB PO SCH (06:30)
[2017-04-25] MEDS: SUCRALFATE (100 MG/ML) 10ML CUP PO SCH ×4 (06:30→20:30)
[2017-04-25] MEDS: FUROSEMIDE 20 MG TAB PO SCH (06:31)
[2017-04-25 07:30] VITALS: BP 132/62; RESP 20
[2017-04-25] MEDS: SALMETEROL/FLUTICASONE 500/50 INHA INH SCH ×2 (09:19→20:33)
[2017-04-25] MEDS: URSODIOL 250 MG TAB PO SCH ×2 (09:21→20:31)
[2017-04-25] MEDS: MULTIVITAMINS/MINERALS TAB PO SCH (09:21)
[2017-04-25] MEDS: DOCUSATE SODIUM 100 MG CAP PO SCH ×2 (09:21→20:32)
[2017-04-25] MEDS: FISH OIL 1,000 MG CAP PO SCH (09:21)
[2017-04-25] MEDS: VITAMIN B COMPLEX/VIT C CAP PO SCH (09:21)
[2017-04-25] MEDS: ISOSORBIDE MONONITRATE(SR)60 MG TAB PO SCH ×2 (09:22→20:33)
[2017-04-25] MEDS: METOPROLOL 25 MG TAB PO SCH ×2 (09:22→20:32)
[2017-04-25] MEDS: CALCIUM/VITAMIN D (500/200) TAB PO SCH ×2 (09:22→20:32)
[2017-04-25] MEDS: RANOLAZINE (SR) 500 MG TAB PO SCH (09:23)
[2017-04-25] MEDS: TIOTROPIUM 18 MCG CAPSULE INHA DEV INH SCH (09:23)
[2017-04-25] MEDS: CILOSTAZOL 100 MG TAB PO SCH ×2 (09:23→20:31)
[2017-04-25] MEDS: ENOXAPARIN 40 MG/0.4 ML SYG SC SCH (09:29)
[2017-04-25 09:30] VITALS: BP 134/63; PULSE 78; RESP 16
[2017-04-25] MEDS: ACETAMINOPHEN 325 MG TAB PO PRN (09:45)
--- NOTE | 2017-04-25 11:18 | CONS ---
Date/Time of Note Date/Time of Note DATE: 04/25/17 TIME: 11:18 Consult Date/Type/Reason Admit Date/Time Apr 23, 2017 at 21:07 Initial Consult Date Subjective Pain improving Objective pulm-cta abd-soft mod assist Vital Signs Date Time Temp Pulse Resp B/P Pulse Ox O2 Delivery O2 Flow Rate FiO2 04/25/17 09:30 78 16 134/63 96 Nasal Cannula 2.0 04/25/17 07:30 98.0 Intake and Output 04/24/17 04/24/17 04/25/17 15:00 23:00 07:00 Intake Total 720 ml 360 ml 550 ml Balance 720 ml 360 ml 550 ml Results/Medications Result Diagram: 04/24/17 0645 04/24/17 0645 Medications Current Medications Tiotropium [place] (Spiriva) 1 inh DAILY INH Last administered on 04/25/17 09: 23; Admin Dose 1 INH; Start 04/24/17 at 09:00 Tramadol HCl (Ultram) 50 mg Q6H PRN PO PAIN Last administered on 04/24/17 13:49 ; Admin Dose 50 MG; Start 04/23/17 at 22:30 Ursodiol (Lit) 250 mg BID PO Last administered on 04/25/17 09:21; Admin Dose 250 MG; Start 04/24/17 at 09:00 Vitamin B Complex/ Vitamin C (Beroc[place]) 1 cap DAILY PO Last administered on 09:21; Admin Dose 1 CAP; Start 04/24/17 at 09:00 Pantoprazole (Protonix Tab) 40 mg DAILY@06 PO Last administered on 04/25/17 06: 30; Admin Dose 40 MG; Start 04/24/17 at 06:00 Ranolazine (Ranexa) 500 mg DAILY PO Last administered on 04/25/17 09:23; Admin Dose 500 MG; Start 04/24/17 at 09:00 Calcium/Vitamin D (Oyster Shell/ Vit-D (500/200)) 1 tab BID PO Last administered on 04/25/17 09:22; Admin Dose 1 TAB; Start 04/24/17 at 09:00 Salmeterol Xinafoate/ Fluticasone (Advair 500/50 Diskus) 1 inh BID INH Last administered on 04/25/17 09:19; Admin Dose 1 INH; Start 04/24/17 at 09:00 Acetaminophen/ Hydrocodone Bitart ([place] (5/325)) 1 tab Q6H PRN PO PAIN Last administered on 04/24/17 09:04; Admin Dose 1 TAB; Start 04/23/17 at 22:30 Isosorbide Mononitrate (Imdur) 60 mg BID PO Last administered on 04/25/17 09:22 ; Admin Dose 60 MG; Start 04/24/17 at 09:00 Magnesium Hydroxide (Milk Of Mag) 30 ml DAILY PRN PO CONSTIPATION; Start at 22:30 Metoprolol Tartrate (Lopressor) 25 mg BID PO Last administered on 04/25/17 09: 22; Admin Dose 25 MG; Start 04/24/17 at 09:00 Morphine Sulfate (morphine) 2 mg Q3H PRN IV PAIN; Start 04/23/17 at 22:30 Multivitamins/ Minerals (Theragran-M) 1 tab DAILY PO Last administered on 09:21; Admin Dose 1 TAB; Start 04/24/17 at 09:00 Nitroglycerin (Nitroglycerin (Sl Tab) 0.4 Mg) 1 tab Q5M PRN SL CHEST PAIN; Start 04/23/17 at 22:30 Ondansetron HCl (Zofran Inj) 4 mg Q6H PRN IV NAUSEA AND/OR VOMITING; Start at 22:30 Acetaminophen (Tylenol Tab) 650 mg Q6H PRN PO PAIN AND OR ELEVATED TEMP Last administered on 04/25/17 09:45; Admin Dose 650 MG; Start 04/23/17 at 22:30 Atorvastatin Calcium (Lipitor) 10 mg DAILY@21 PO Last administered on 04/24/17 21:17; Admin Dose 10 MG; Start 04/24/17 at 21:00 Cilostazol (Pletal) 50 mg BID PO Last administered on 04/25/17 09:23; Admin Dose 50 MG; Start 04/24/17 at 09:00 Docusate Sodium (Colace) 100 mg Q12H PRN PO CONSTIPATION; Start 04/23/17 at 22: 30 Enoxaparin Sodium (Lovenox) 40 mg DAILY SC Last administered on 04/25/17 09:29 ; Admin Dose 40 MG; Start 04/24/17 at 09:00 Fish Oil (Fish Oil) 1,000 mg DAILY PO Last administered on 04/25/17 09:21; Admin Dose 1,000 MG; Start 04/24/17 at 09:00 Furosemide (Lasix) 20 mg DAILY@06 PO Last administered on 04/25/17 06:31; Admin Dose 20 MG; Start 04/24/17 at 06:00 Docusate Sodium (Colace) 100 mg BID PO Last administered on 04/25/17 09:21; Admin Dose 100 MG; Start 04/24/17 at 09:00 Senna (Senokot) 1 tab HS PO Last administered on 04/24/17 21:18; Admin Dose 1 TAB; Start 04/24/17 at 21:00 Bisacodyl (Dulcolax Supp) 10 mg DAILY PRN [place] CONSTIPATION; Start 04/24/17 at 00: 00 Lactulose (Enulose) 20 gm DAILY PRN PO CONSTIPATION; Start 04/24/17 at 00:00 Guaifenesin (Robitussin Liquid Cup) 100 mg Q6H PRN PO COUGH; Start 04/24/17 at 14:00 Assessment/Plan Additional Assessment/Plan Rehab- Blunt head trauma with loss of consciousness, status post fall; Right shoulder acute tendonitis; R LE contusion; Left knee effusion Continue rehab program Acute pain syndrome. Hypertension. COPD. RACHEL COLUNGA MD Apr 25, 2017 11:18
--- NOTE | 2017-04-25 11:50 | CONS ---
Date/Time of Note Date/Time of Note DATE: 04/25/17 TIME: 11:47 Consult Date/Type/Reason Admit Date/Time Apr 23, 2017 at 21:07 Initial Consult Date Type of Consultation: Internal medicine Subjective Patient complaining of shoulder pain this morning. Otherwise relatively stable. Objective Vital Signs Date Time Temp Pulse Resp B/P Pulse Ox O2 Delivery O2 Flow Rate FiO2 04/25/17 09:30 78 16 134/63 96 Nasal Cannula 2.0 04/25/17 07:30 98.0 Intake and Output 04/24/17 04/24/17 04/25/17 15:00 23:00 07:00 Intake Total 720 ml 360 ml 550 ml Balance 720 ml 360 ml 550 ml Exam GENERAL: Chronically ill-appearing lady comfortable at rest kyphoscoliosis VITAL SIGNS: per chart NECK: Supple. No JVD or lymphadenopathy. CARDIAC EXAM: S1, S2. No added sounds or murmurs. CHEST: Diminished air entry both lung floyd ABDOMEN: Soft, nontender. No guarding or rebound. EXTREMITIES: No cyanosis, clubbing or edema. NEUROLOGIC: Generalized weakness. No focal deficits. Results/Medications Result Diagram: 04/24/1745 04/24/1745 Medications Current Medications Tiotropium [place] (Spiriva) 1 inh DAILY INH Last administered on 04/25/17 09: 23; Admin Dose 1 INH; Start 04/24/17 at 09:00 Tramadol HCl (Ultram) 50 mg Q6H PRN PO PAIN Last administered on 04/24/17 13:49 ; Admin Dose 50 MG; Start 04/23/17 at 22:30 Ursodiol (Lit) 250 mg BID PO Last administered on 04/25/17 09:21; Admin Dose 250 MG; Start 04/24/17 at 09:00 Vitamin B Complex/ Vitamin C (Berocca) 1 cap DAILY PO Last administered on 09:21; Admin Dose 1 CAP; Start 04/24/17 at 09:00 Pantoprazole (Protonix Tab) 40 mg DAILY@06 PO Last administered on 04/25/17 06: 30; Admin Dose 40 MG; Start 04/24/17 at 06:00 Ranolazine (Ranexa) 500 mg DAILY PO Last administered on 04/25/17 09:23; Admin Dose 500 MG; Start 04/24/17 at 09:00 Calcium/Vitamin D ([place]yster Shell/ Vit-D (500/200)) 1 tab BID PO Last administered on 04/25/17 09:22; Admin Dose 1 TAB; Start 04/24/17 at 09:00 Salmeterol Xinafoate/ Fluticasone (Advair 500/50 Diskus) 1 inh BID INH Last administered on 04/25/17 09:19; Admin Dose 1 INH; Start 04/24/17 at 09:00 Acetaminophen/ Hydrocodone Bitart ([place] (5/325)) 1 tab Q6H PRN PO PAIN Last administered on 04/24/17 09:04; Admin Dose 1 TAB; Start 04/23/17 at 22:30 Isosorbide Mononitrate (Imdur) 60 mg BID PO Last administered on 04/25/17 09:22 ; Admin Dose 60 MG; Start 04/24/17 at 09:00 Magnesium Hydroxide (Milk Of Mag) 30 ml DAILY PRN PO CONSTIPATION; Start at 22:30 Metoprolol Tartrate (Lopressor) 25 mg BID PO Last administered on 04/25/17 09: 22; Admin Dose 25 MG; Start 04/24/17 at 09:00 Morphine Sulfate (morphine) 2 mg Q3H PRN IV PAIN; Start 04/23/17 at 22:30 Multivitamins/ Minerals (Theragran-M) 1 tab DAILY PO Last administered on 09:21; Admin Dose 1 TAB; Start 04/24/17 at 09:00 Nitroglycerin (Nitroglycerin (Sl Tab) 0.4 Mg) 1 tab Q5M PRN SL CHEST PAIN; Start 04/23/17 at 22:30 Ondansetron HCl (Zofran Inj) 4 mg Q6H PRN IV NAUSEA AND/OR VOMITING; Start at 22:30 Acetaminophen (Tylenol Tab) 650 mg Q6H PRN PO PAIN AND OR ELEVATED TEMP Last administered on 04/25/17 09:45; Admin Dose 650 MG; Start 04/23/17 at 22:30 Atorvastatin Calcium (Lipitor) 10 mg DAILY@21 PO Last administered on 04/24/17 21:17; Admin Dose 10 MG; Start 04/24/17 at 21:00 Cilostazol (Pletal) 50 mg BID PO Last administered on 04/25/17 09:23; Admin Dose 50 MG; Start 04/24/17 at 09:00 Docusate Sodium (Colace) 100 mg Q12H PRN PO CONSTIPATION; Start 04/23/17 at 22: 30 Enoxaparin Sodium (Lovenox) 40 mg DAILY SC Last administered on 04/25/17 09:29 ; Admin Dose 40 MG; Start 04/24/17 at 09:00 Fish Oil (Fish Oil) 1,000 mg DAILY PO Last administered on 04/25/17 09:21; Admin Dose 1,000 MG; Start 04/24/17 at 09:00 Furosemide (Lasix) 20 mg DAILY@06 PO Last administered on 04/25/17 06:31; Admin Dose 20 MG; Start 04/24/17 at 06:00 Docusate Sodium (Colace) 100 mg BID PO Last administered on 04/25/17 09:21; Admin Dose 100 MG; Start 04/24/17 at 09:00 Senna (Senokot) 1 tab HS PO Last administered on 04/24/17 21:18; Admin Dose 1 TAB; Start 04/24/17 at 21:00 Bisacodyl (Dulcolax Supp) 10 mg DAILY PRN [place] CONSTIPATION; Start 04/24/17 at 00: 00 Lactulose (Enulose) 20 gm DAILY PRN PO CONSTIPATION; Start 04/24/17 at 00:00 Guaifenesin (Robitussin Liquid Cup) 100 mg Q6H PRN PO COUGH; Start 04/24/17 at 14:00 Assessment/Plan Chief Complaint/Hosp Course Assessment 1. Mechanical fall with shoulder injury 2. History of restrictive lung disease secondary to kyphoscoliosis, chronic hypoxemic respiratory failure 3. Recent UTI with gram-negative rods Plan 1. Continue PT 2. Continue pain control 3. Ciprofloxacin for UTI pending culture results Problems: BETZY OLIVO MD, [facility] Apr 25, 2017 11:50
[2017-04-25 14:00] VITALS: BP 105/57; RESP 20
[2017-04-25] MEDS ORDERED: CIPROFLOXACIN 500 MG TAB ONE (16:55)
[2017-04-25] MEDS: CIPROFLOXACIN 500 MG TAB PO SCH (17:28)
[2017-04-25] MEDS: HYDROCODONE/APAP (5/325) TAB PO PRN (17:36)
[2017-04-25] MEDS: SENNA TAB PO SCH (20:32)
[2017-04-25] MEDS: ATORVASTATIN 10 MG TAB PO SCH (20:32)
[2017-04-25 20:49] VITALS: BP 128/68; RESP 18
[2017-04-26] MEDS: CIPROFLOXACIN 500 MG TAB PO SCH (06:27)
[2017-04-26] MEDS: PANTOPRAZOLE (EC) 40 MG TAB PO SCH (06:27)
[2017-04-26] MEDS: FUROSEMIDE 20 MG TAB PO SCH (06:31)
[2017-04-26] MEDS: SUCRALFATE (100 MG/ML) 10ML CUP PO SCH ×4 (06:39→20:46)
[2017-04-26 07:30] VITALS: BP 137/63; RESP 20
[2017-04-26] MEDS: SALMETEROL/FLUTICASONE 500/50 INHA INH SCH ×2 (08:29→20:46)
[2017-04-26] MEDS: ISOSORBIDE MONONITRATE(SR)60 MG TAB PO SCH ×2 (08:31→20:47)
[2017-04-26] MEDS: DOCUSATE SODIUM 100 MG CAP PO SCH ×2 (08:31→20:46)
[2017-04-26] MEDS: CILOSTAZOL 100 MG TAB PO SCH ×2 (08:31→20:48)
[2017-04-26] MEDS: VITAMIN B COMPLEX/VIT C CAP PO SCH (08:31)
[2017-04-26] MEDS: CALCIUM/VITAMIN D (500/200) TAB PO SCH ×2 (08:31→20:48)
[2017-04-26] MEDS: MULTIVITAMINS/MINERALS TAB PO SCH (08:31)
[2017-04-26] MEDS: HYDROCODONE/APAP (5/325) TAB PO PRN ×2 (08:31→17:35)
[2017-04-26] MEDS: FISH OIL 1,000 MG CAP PO SCH (08:31)
[2017-04-26] MEDS: RANOLAZINE (SR) 500 MG TAB PO SCH (08:32)
[2017-04-26] MEDS: TIOTROPIUM 18 MCG CAPSULE INHA DEV INH SCH (08:32)
[2017-04-26] MEDS: METOPROLOL 25 MG TAB PO SCH ×2 (08:32→20:48)
[2017-04-26] MEDS: URSODIOL 250 MG TAB PO SCH ×2 (08:32→20:48)
[2017-04-26] MEDS: ENOXAPARIN 40 MG/0.4 ML SYG SC SCH (08:33)
[2017-04-26 08:40] VITALS: BP 140/62; PULSE 78; RESP 18
--- NOTE | 2017-04-26 13:25 | CONS ---
Date/Time of Note Date/Time of Note DATE: 04/26/17 TIME: 13:24 Consult Date/Type/Reason Admit Date/Time Apr 23, 2017 at 21:07 Type of Consultation: Internal medicine Subjective Remains comfortable. Objective Vital Signs Date Time Temp Pulse Resp B/P Pulse Ox O2 Delivery O2 Flow Rate FiO2 04/26/17 08:40 78 18 140/62 96 Nasal Cannula 2.0 04/26/17 07:30 98.9 Intake and Output 04/25/17 04/25/17 04/26/17 15:00 23:00 07:00 Intake Total 1100 ml 620 ml Output Total 350 ml Balance 750 ml 620 ml Exam GENERAL: Chronically ill-appearing lady comfortable at rest kyphoscoliosis VITAL SIGNS: per chart NECK: Supple. No JVD or lymphadenopathy. CARDIAC EXAM: S1, S2. No added sounds or murmurs. CHEST: Diminished air entry both lung floyd ABDOMEN: Soft, nontender. No guarding or rebound. EXTREMITIES: No cyanosis, clubbing or edema. NEUROLOGIC: Generalized weakness. No focal deficits. Results/Medications Result Diagram: 04/24/1745 04/24/1745 Medications Current Medications Tiotropium [place] (Spiriva) 1 inh DAILY INH Last administered on 04/26/17 08: 32; Admin Dose 1 INH; Start 04/24/17 at 09:00 Tramadol HCl (Ultram) 50 mg Q6H PRN PO PAIN Last administered on 04/24/17 13:49 ; Admin Dose 50 MG; Start 04/23/17 at 22:30 Ursodiol (Lit) 250 mg BID PO Last administered on 04/26/17 08:32; Admin Dose 250 MG; Start 04/24/17 at 09:00 Vitamin B Complex/ Vitamin C (Berocca) 1 cap DAILY PO Last administered on 08:31; Admin Dose 1 CAP; Start 04/24/17 at 09:00 Pantoprazole (Protonix Tab) 40 mg DAILY@06 PO Last administered on 04/26/17 06: 27; Admin Dose 40 MG; Start 04/24/17 at 06:00 Ranolazine (Ranexa) 500 mg DAILY PO Last administered on 04/26/17 08:32; Admin Dose 500 MG; Start 04/24/17 at 09:00 Calcium/Vitamin D (Oyster Shell/ Vit-D (500/200)) 1 tab BID PO Last administered on 04/26/17 08:31; Admin Dose 1 TAB; Start 04/24/17 at 09:00 Salmeterol Xinafoate/ Fluticasone (Advair 500/50 Diskus) 1 inh BID INH Last administered on 04/26/17 08:29; Admin Dose 1 INH; Start 04/24/17 at 09:00 Acetaminophen/ Hydrocodone Bitart ([place] (5/325)) 1 tab Q6H PRN PO PAIN Last administered on 04/26/17 08:31; Admin Dose 1 TAB; Start 04/23/17 at 22:30 Isosorbide Mononitrate (Imdur) 60 mg BID PO Last administered on 04/26/17 08:31 ; Admin Dose 60 MG; Start 04/24/17 at 09:00 Magnesium Hydroxide (Milk Of Mag) 30 ml DAILY PRN PO CONSTIPATION; Start at 22:30 Metoprolol Tartrate (Lopressor) 25 mg BID PO Last administered on 04/26/17 08: 32; Admin Dose 25 MG; Start 04/24/17 at 09:00 Morphine Sulfate (morphine) 2 mg Q3H PRN IV PAIN; Start 04/23/17 at 22:30 Multivitamins/ Minerals (Theragran-M) 1 tab DAILY PO Last administered on 08:31; Admin Dose 1 TAB; Start 04/24/17 at 09:00 Nitroglycerin (Nitroglycerin (Sl Tab) 0.4 Mg) 1 tab Q5M PRN SL CHEST PAIN; Start 04/23/17 at 22:30 Ondansetron HCl (Zofran Inj) 4 mg Q6H PRN IV NAUSEA AND/OR VOMITING; Start at 22:30 Acetaminophen (Tylenol Tab) 650 mg Q6H PRN PO PAIN AND OR ELEVATED TEMP Last administered on 04/25/17 09:45; Admin Dose 650 MG; Start 04/23/17 at 22:30 Atorvastatin Calcium (Lipitor) 10 mg DAILY@21 PO Last administered on 04/25/17 20:32; Admin Dose 10 MG; Start 04/24/17 at 21:00 Cilostazol (Pletal) 50 mg BID PO Last administered on 04/26/17 08:31; Admin Dose 50 MG; Start 04/24/17 at 09:00 Docusate Sodium (Colace) 100 mg Q12H PRN PO CONSTIPATION; Start 04/23/17 at 22: 30 Enoxaparin Sodium (Lovenox) 40 mg DAILY SC Last administered on 04/26/17 08:33 ; Admin Dose 40 MG; Start 04/24/17 at 09:00 Fish Oil (Fish Oil) 1,000 mg DAILY PO Last administered on 04/26/17 08:31; Admin Dose 1,000 MG; Start 04/24/17 at 09:00 Furosemide (Lasix) 20 mg DAILY@06 PO Last administered on 04/26/17 06:31; Admin Dose 20 MG; Start 04/24/17 at 06:00 Docusate Sodium (Colace) 100 mg BID PO Last administered on 04/26/17 08:31; Admin Dose 100 MG; Start 04/24/17 at 09:00 Senna (Senokot) 1 tab HS PO Last administered on 04/25/17 20:32; Admin Dose 1 TAB; Start 04/24/17 at 21:00 Bisacodyl (Dulcolax Supp) 10 mg DAILY PRN [place] CONSTIPATION; Start 04/24/17 at 00: 00 Lactulose (Enulose) 20 gm DAILY PRN PO CONSTIPATION; Start 04/24/17 at 00:00 Guaifenesin (Robitussin Liquid Cup) 100 mg Q6H PRN PO COUGH; Start 04/24/17 at 14:00 Ciprofloxacin (Cipro) 500 mg BID@,18 PO Last administered on 04/26/17 06:27; Admin Dose 500 MG; Start 04/25/17 at 18:00 Assessment/Plan Chief Complaint/Hosp Course Assessment 1. Mechanical fall with shoulder injury 2. History of restrictive lung disease secondary to kyphoscoliosis, chronic hypoxemic respiratory failure 3. e coli uti Plan 1. Continue PT 2. Continue pain control 3. nitrofurantoin for uti. Problems: BETZY OLIVO MD, [facility] Apr 26, 2017 13:25
[2017-04-26] MEDS: NITROFURANTOIN (SR) 100 MG CAP PO SCH ×2 (15:01→20:48)
[2017-04-26] MEDS: ONDANSETRON 4 MG INJ IV PRN (17:01)
[2017-04-26 19:36] VITALS: BP 138/61; RESP 20
[2017-04-26] MEDS: ATORVASTATIN 10 MG TAB PO SCH (20:47)
[2017-04-26] MEDS: SENNA TAB PO SCH (20:48)
[2017-04-27 02:07] VITALS: BP 143/65; RESP 20
[2017-04-27] MEDS: PANTOPRAZOLE (EC) 40 MG TAB PO SCH (06:53)
[2017-04-27] MEDS: SUCRALFATE (100 MG/ML) 10ML CUP PO SCH ×4 (06:53→20:40)
[2017-04-27] MEDS: FUROSEMIDE 20 MG TAB PO SCH (06:54)
[2017-04-27 07:30] VITALS: BP 156/72; RESP 20
[2017-04-27] MEDS: morphine 2 MG INJ IV PRN ×3 (08:39→17:48)
[2017-04-27] MEDS: DOCUSATE SODIUM 100 MG CAP PO SCH ×2 (09:00→20:40)
[2017-04-27] MEDS: URSODIOL 250 MG TAB PO SCH ×2 (09:00→20:40)
[2017-04-27] MEDS: VITAMIN B COMPLEX/VIT C CAP PO SCH (09:00)
[2017-04-27] MEDS: METOPROLOL 25 MG TAB PO SCH ×2 (09:00→20:42)
[2017-04-27] MEDS: RANOLAZINE (SR) 500 MG TAB PO SCH (09:00)
[2017-04-27] MEDS: MULTIVITAMINS/MINERALS TAB PO SCH (09:00)
[2017-04-27] MEDS: CALCIUM/VITAMIN D (500/200) TAB PO SCH ×2 (09:00→20:42)
[2017-04-27] MEDS: NITROFURANTOIN (SR) 100 MG CAP PO SCH ×2 (09:00→20:40)
[2017-04-27] MEDS: CILOSTAZOL 100 MG TAB PO SCH ×2 (09:01→20:41)
[2017-04-27] MEDS: FISH OIL 1,000 MG CAP PO SCH (09:01)
[2017-04-27] MEDS: SALMETEROL/FLUTICASONE 500/50 INHA INH SCH ×2 (09:01→20:40)
[2017-04-27] MEDS: TIOTROPIUM 18 MCG CAPSULE INHA DEV INH SCH (09:01)
[2017-04-27] MEDS: ISOSORBIDE MONONITRATE(SR)60 MG TAB PO SCH ×2 (09:02→20:41)
--- NOTE | 2017-04-27 09:04 | CONS ---
Date/Time of Note Date/Time of Note DATE: 04/27/17 TIME: 09:03 Consult Date/Type/Reason Admit Date/Time Apr 23, 2017 at 21:07 Type of Consultation: Internal medicine Objective Vital Signs Date Time Temp Pulse Resp B/P Pulse Ox O2 Delivery O2 Flow Rate FiO2 04/27/17 02:07 98.0 64 20 143/65 98 04/26/17 20:00 Nasal Cannula 2.0 Intake and Output 04/26/17 04/26/17 04/27/17 15:00 23:00 07:00 Intake Total 450 ml 420 ml 240 ml Output Total 350 ml 1 ml Balance 100 ml 419 ml 240 ml INTERDISCIPLINARY TEAM CONFERENCE BOWEL- Cont BLADDER-Cont SKIN- intact OT- DRESSING-min BATHING-min TOILETING-min PT- BED MOBILITY-min TRANSFERS-min AMBULATION-min 150 feet SPEECH- COGNITION-sba A/P- Interdisciplinary team conference held today. Please see interdisciplinary sheet. Working toward d.c. on 05/08 with post discharge follow up of physical therapy, occupational therapy. Results/Medications Result Diagram: 04/24/17 0645 04/24/17 0645 Medications Current Medications Tiotropium [place] (Spiriva) 1 inh DAILY INH Last administered on 04/26/17 08: 32; Admin Dose 1 INH; Start 04/24/17 at 09:00 Tramadol HCl (Ultram) 50 mg Q6H PRN PO PAIN Last administered on 04/24/17 13:49 ; Admin Dose 50 MG; Start 04/23/17 at 22:30 Ursodiol (Lit) 250 mg BID PO Last administered on 04/26/17 20:48; Admin Dose 250 MG; Start 04/24/17 at 09:00 Vitamin B Complex/ Vitamin C (Berocca) 1 cap DAILY PO Last administered on 08:31; Admin Dose 1 CAP; Start 04/24/17 at 09:00 Pantoprazole (Protonix Tab) 40 mg DAILY@06 PO Last administered on 04/27/17 06: 53; Admin Dose 40 MG; Start 04/24/17 at 06:00 Ranolazine (Ranexa) 500 mg DAILY PO Last administered on 04/26/17 08:32; Admin Dose 500 MG; Start 04/24/17 at 09:00 Calcium/Vitamin D (Oyster Shell/ Vit-D (500/200)) 1 tab BID PO Last administered on 04/26/17 20:48; Admin Dose 1 TAB; Start 04/24/17 at 09:00 Salmeterol Xinafoate/ Fluticasone (Advair 500/50 Diskus) 1 inh BID INH Last administered on 04/26/17 20:46; Admin Dose 1 INH; Start 04/24/17 at 09:00 Acetaminophen/ Hydrocodone Bitart ([place] (5/325)) 1 tab Q6H PRN PO PAIN Last administered on 04/26/17 17:35; Admin Dose 1 TAB; Start 04/23/17 at 22:30 Isosorbide Mononitrate (Imdur) 60 mg BID PO Last administered on 04/26/17 20:47 ; Admin Dose 60 MG; Start 04/24/17 at 09:00 Magnesium Hydroxide (Milk Of Mag) 30 ml DAILY PRN PO CONSTIPATION; Start at 22:30 Metoprolol Tartrate (Lopressor) 25 mg BID PO Last administered on 04/26/17 20: 48; Admin Dose 25 MG; Start 04/24/17 at 09:00 Morphine Sulfate (morphine) 2 mg Q3H PRN IV PAIN Last administered on 04/27/17 08:39; Admin Dose 2 MG; Start 04/23/17 at 22:30 Multivitamins/ Minerals (Theragran-M) 1 tab DAILY PO Last administered on 08:31; Admin Dose 1 TAB; Start 04/24/17 at 09:00 Nitroglycerin (Nitroglycerin (Sl Tab) 0.4 Mg) 1 tab Q5M PRN SL CHEST PAIN; Start 04/23/17 at 22:30 Ondansetron HCl (Zofran Inj) 4 mg Q6H PRN IV NAUSEA AND/OR VOMITING Last administered on 04/26/17 17:01; Admin Dose 4 MG; Start 04/23/17 at 22:30 Acetaminophen (Tylenol Tab) 650 mg Q6H PRN PO PAIN AND OR ELEVATED TEMP Last administered on 04/25/17 09:45; Admin Dose 650 MG; Start 04/23/17 at 22:30 Atorvastatin Calcium (Lipitor) 10 mg DAILY@21 PO Last administered on 04/26/17 20:47; Admin Dose 10 MG; Start 04/24/17 at 21:00 Cilostazol (Pletal) 50 mg BID PO Last administered on 04/26/17 20:48; Admin Dose 50 MG; Start 04/24/17 at 09:00 Docusate Sodium (Colace) 100 mg Q12H PRN PO CONSTIPATION; Start 04/23/17 at 22: 30 Enoxaparin Sodium (Lovenox) 40 mg DAILY SC Last administered on 04/26/17 08:33 ; Admin Dose 40 MG; Start 04/24/17 at 09:00 Fish Oil (Fish Oil) 1,000 mg DAILY PO Last administered on 04/26/17 08:31; Admin Dose 1,000 MG; Start 04/24/17 at 09:00 Furosemide (Lasix) 20 mg DAILY@06 PO Last administered on 04/27/17 06:54; Admin Dose 20 MG; Start 04/24/17 at 06:00 Docusate Sodium (Colace) 100 mg BID PO Last administered on 04/26/17 20:46; Admin Dose 100 MG; Start 04/24/17 at 09:00 Senna (Senokot) 1 tab HS PO Last administered on 04/26/17 20:48; Admin Dose 1 TAB; Start 04/24/17 at 21:00 Bisacodyl (Dulcolax Supp) 10 mg DAILY PRN [place] CONSTIPATION; Start 04/24/17 at 00: 00 Lactulose (Enulose) 20 gm DAILY PRN PO CONSTIPATION; Start 04/24/17 at 00:00 Guaifenesin (Robitussin Liquid Cup) 100 mg Q6H PRN PO COUGH; Start 04/24/17 at 14:00 Nitrofurantoin Macrocrystals (Macrobid) 100 mg BID PO Last administered on 20:48; Admin Dose 100 MG; Start 04/26/17 at 14:30; Stop 05/03/17 at 14:29 RACHEL COLUNGA MD Apr 27, 2017 09:04
[2017-04-27] MEDS: ENOXAPARIN 40 MG/0.4 ML SYG SC SCH (09:06)
--- NOTE | 2017-04-27 11:41 | CONS ---
Date/Time of Note Date/Time of Note DATE: 04/27/17 TIME: 11:41 Consult Date/Type/Reason Admit Date/Time Apr 23, 2017 at 21:07 Type of Consultation: Internal medicine Subjective Complaining of pain in right shoulder. Cyst or lipoma noted near the right elbow. Objective Vital Signs Date Time Temp Pulse Resp B/P Pulse Ox O2 Delivery O2 Flow Rate FiO2 04/27/17 07:30 98.6 61 20 156/72 97 04/26/17 20:00 Nasal Cannula 2.0 Intake and Output 04/26/17 04/26/17 04/27/17 15:00 23:00 07:00 Intake Total 450 ml 420 ml 240 ml Output Total 350 ml 1 ml Balance 100 ml 419 ml 240 ml Exam GENERAL: Chronically ill-appearing lady comfortable at rest kyphoscoliosis VITAL SIGNS: per chart NECK: Supple. No JVD or lymphadenopathy. CARDIAC EXAM: S1, S2. No added sounds or murmurs. CHEST: Diminished air entry both lung floyd ABDOMEN: Soft, nontender. No guarding or rebound. EXTREMITIES: No cyanosis, clubbing or edema. NEUROLOGIC: Generalized weakness. No focal deficits. Results/Medications Result Diagram: 04/24/1764404/24/17644 Medications Current Medications Tiotropium [place] (Spiriva) 1 inh DAILY INH Last administered on 04/27/17 09: 01; Admin Dose 1 INH; Start 04/24/17 at 09:00 Tramadol HCl (Ultram) 50 mg Q6H PRN PO PAIN Last administered on 04/24/17 13:49 ; Admin Dose 50 MG; Start 04/23/17 at 22:30 Ursodiol (Lit) 250 mg BID PO Last administered on 04/27/17 09:00; Admin Dose 250 MG; Start 04/24/17 at 09:00 Vitamin B Complex/ Vitamin C (Berocca) 1 cap DAILY PO Last administered on 09:00; Admin Dose 1 CAP; Start 04/24/17 at 09:00 Pantoprazole (Protonix Tab) 40 mg DAILY@06 PO Last administered on 04/27/17 06: 53; Admin Dose 40 MG; Start 04/24/17 at 06:00 Ranolazine (Ranexa) 500 mg DAILY PO Last administered on 04/27/17 09:00; Admin Dose 500 MG; Start 04/24/17 at 09:00 Calcium/Vitamin D (Oyster Shell/ Vit-D (500/200)) 1 tab BID PO Last administered on 04/27/17 09:00; Admin Dose 1 TAB; Start 04/24/17 at 09:00 Salmeterol Xinafoate/ Fluticasone (Advair 500/50 Diskus) 1 inh BID INH Last administered on 04/27/17 09:01; Admin Dose 1 INH; Start 04/24/17 at 09:00 Acetaminophen/ Hydrocodone Bitart ([place] (5/325)) 1 tab Q6H PRN PO PAIN Last administered on 04/26/17 17:35; Admin Dose 1 TAB; Start 04/23/17 at 22:30 Isosorbide Mononitrate (Imdur) 60 mg BID PO Last administered on 04/27/17 09:02 ; Admin Dose 60 MG; Start 04/24/17 at 09:00 Magnesium Hydroxide (Milk Of Mag) 30 ml DAILY PRN PO CONSTIPATION; Start at 22:30 Metoprolol Tartrate (Lopressor) 25 mg BID PO Last administered on 04/26/17 20: 48; Admin Dose 25 MG; Start 04/24/17 at 09:00 Morphine Sulfate (morphine) 2 mg Q3H PRN IV PAIN Last administered on 04/27/17 11:33; Admin Dose 2 MG; Start 04/23/17 at 22:30 Multivitamins/ Minerals (Theragran-M) 1 tab DAILY PO Last administered on 09:00; Admin Dose 1 TAB; Start 04/24/17 at 09:00 Nitroglycerin (Nitroglycerin (Sl Tab) 0.4 Mg) 1 tab Q5M PRN SL CHEST PAIN; Start 04/23/17 at 22:30 Ondansetron HCl (Zofran Inj) 4 mg Q6H PRN IV NAUSEA AND/OR VOMITING Last administered on 04/26/17 17:01; Admin Dose 4 MG; Start 04/23/17 at 22:30 Acetaminophen (Tylenol Tab) 650 mg Q6H PRN PO PAIN AND OR ELEVATED TEMP Last administered on 04/25/17 09:45; Admin Dose 650 MG; Start 04/23/17 at 22:30 Atorvastatin Calcium (Lipitor) 10 mg DAILY@21 PO Last administered on 04/26/17 20:47; Admin Dose 10 MG; Start 04/24/17 at 21:00 Cilostazol (Pletal) 50 mg BID PO Last administered on 04/27/17 09:01; Admin Dose 50 MG; Start 04/24/17 at 09:00 Docusate Sodium (Colace) 100 mg Q12H PRN PO CONSTIPATION; Start 04/23/17 at 22: 30 Enoxaparin Sodium (Lovenox) 40 mg DAILY SC Last administered on 04/27/17 09:06 ; Admin Dose 40 MG; Start 04/24/17 at 09:00 Fish Oil (Fish Oil) 1,000 mg DAILY PO Last administered on 04/27/17 09:01; Admin Dose 1,000 MG; Start 04/24/17 at 09:00 Furosemide (Lasix) 20 mg DAILY@06 PO Last administered on 04/27/17 06:54; Admin Dose 20 MG; Start 04/24/17 at 06:00 Docusate Sodium (Colace) 100 mg BID PO Last administered on 04/27/17 09:00; Admin Dose 100 MG; Start 04/24/17 at 09:00 Senna (Senokot) 1 tab HS PO Last administered on 04/26/17 20:48; Admin Dose 1 TAB; Start 04/24/17 at 21:00 Bisacodyl (Dulcolax Supp) 10 mg DAILY PRN [place] CONSTIPATION; Start 04/24/17 at 00: 00 Lactulose (Enulose) 20 gm DAILY PRN PO CONSTIPATION; Start 04/24/17 at 00:00 Guaifenesin (Robitussin Liquid Cup) 100 mg Q6H PRN PO COUGH; Start 04/24/17 at 14:00 Nitrofurantoin Macrocrystals (Macrobid) 100 mg BID PO Last administered on 09:00; Admin Dose 100 MG; Start 04/26/17 at 14:30; Stop 05/03/17 at 14:29 Assessment/Plan Chief Complaint/Hosp Course Assessment 1. Mechanical fall with shoulder injury 2. History of restrictive lung disease secondary to kyphoscoliosis, chronic hypoxemic respiratory failure 3. e coli uti Plan 1. Continue PT 2. Continue pain control 3. nitrofurantoin for uti. Problems: BETZY OLIVO MD, [facility] Apr 27, 2017 11:41
[2017-04-27 14:00] VITALS: BP 117/58; RESP 20
[2017-04-27] MEDS: ONDANSETRON 4 MG INJ IV PRN (17:52)
[2017-04-27 19:25] VITALS: BP 129/67; RESP 18
[2017-04-27] MEDS: ATORVASTATIN 10 MG TAB PO SCH (20:40)
[2017-04-27] MEDS: SENNA TAB PO SCH (20:42)
[2017-04-28 02:15] VITALS: BP 131/60; RESP 17
[2017-04-28] MEDS: PANTOPRAZOLE (EC) 40 MG TAB PO SCH (06:01)
[2017-04-28] MEDS: FUROSEMIDE 20 MG TAB PO SCH (06:06)
[2017-04-28] MEDS: SUCRALFATE (100 MG/ML) 10ML CUP PO SCH ×5 (06:40→21:00)
[2017-04-28 08:00] VITALS: BP 130/63; RESP 18
[2017-04-28] MEDS: METOPROLOL 25 MG TAB PO SCH ×2 (09:07→20:35)
[2017-04-28] MEDS: DOCUSATE SODIUM 100 MG CAP PO SCH ×2 (09:07→20:34)
[2017-04-28] MEDS: CILOSTAZOL 100 MG TAB PO SCH ×2 (09:07→20:35)
[2017-04-28] MEDS: VITAMIN B COMPLEX/VIT C CAP PO SCH (09:08)
[2017-04-28] MEDS: NITROFURANTOIN (SR) 100 MG CAP PO SCH ×2 (09:08→20:34)
[2017-04-28] MEDS: URSODIOL 250 MG TAB PO SCH ×2 (09:08→20:34)
[2017-04-28] MEDS: ISOSORBIDE MONONITRATE(SR)60 MG TAB PO SCH ×2 (09:08→20:34)
[2017-04-28] MEDS: MULTIVITAMINS/MINERALS TAB PO SCH (09:08)
[2017-04-28] MEDS: CALCIUM/VITAMIN D (500/200) TAB PO SCH ×2 (09:08→20:34)
[2017-04-28] MEDS: FISH OIL 1,000 MG CAP PO SCH (09:08)
[2017-04-28] MEDS: RANOLAZINE (SR) 500 MG TAB PO SCH (09:08)
[2017-04-28] MEDS: morphine 2 MG INJ IV PRN ×3 (09:09→19:01)
[2017-04-28] MEDS: TIOTROPIUM 18 MCG CAPSULE INHA DEV INH SCH (09:18)
[2017-04-28] MEDS: SALMETEROL/FLUTICASONE 500/50 INHA INH SCH ×2 (09:18→20:34)
[2017-04-28] MEDS: ENOXAPARIN 40 MG/0.4 ML SYG SC SCH (09:18)
--- NOTE | 2017-04-28 12:32 | CONS ---
Date/Time of Note Date/Time of Note DATE: 04/28/17 TIME: 12:31 Consult Date/Type/Reason Admit Date/Time Apr 23, 2017 at 21:07 Type of Consultation: Internal medicine Subjective Feeling better Objective pulm-cta min assist ambulation Vital Signs Date Time Temp Pulse Resp B/P Pulse Ox O2 Delivery O2 Flow Rate FiO2 04/28/17 08:00 97.8 84 18 130/63 97 04/27/17 20:20 Nasal Cannula 2.0 Intake and Output 04/27/17 04/27/17 04/28/17 15:00 23:00 07:00 Intake Total 240 ml 420 ml 200 ml Balance 240 ml 420 ml 200 ml Results/Medications Result Diagram: 04/24/1745 04/24/17 0645 Medications Current Medications Tiotropium [place] (Spiriva) 1 inh DAILY INH Last administered on 04/28/17 09: 18; Admin Dose 1 INH; Start 04/24/17 at 09:00 Tramadol HCl (Ultram) 50 mg Q6H PRN PO PAIN Last administered on 04/24/17 13:49 ; Admin Dose 50 MG; Start 04/23/17 at 22:30 Ursodiol (Lit) 250 mg BID PO Last administered on 04/28/17 09:08; Admin Dose 250 MG; Start 04/24/17 at 09:00 Vitamin B Complex/ Vitamin C (Berocca) 1 cap DAILY PO Last administered on 09:08; Admin Dose 1 CAP; Start 04/24/17 at 09:00 Pantoprazole (Protonix Tab) 40 mg DAILY@06 PO Last administered on 04/28/17 06: 01; Admin Dose 40 MG; Start 04/24/17 at 06:00 Ranolazine (Ranexa) 500 mg DAILY PO Last administered on 04/28/17 09:08; Admin Dose 500 MG; Start 04/24/17 at 09:00 Calcium/Vitamin D (Oyster Shell/ Vit-D (500/200)) 1 tab BID PO Last administered on 04/28/17 09:08; Admin Dose 1 TAB; Start 04/24/17 at 09:00 Salmeterol Xinafoate/ Fluticasone (Advair 500/50 Diskus) 1 inh BID INH Last administered on 04/28/17 09:18; Admin Dose 1 INH; Start 04/24/17 at 09:00 Acetaminophen/ Hydrocodone Bitart ([place] (5/325)) 1 tab Q6H PRN PO PAIN Last administered on 04/26/17 17:35; Admin Dose 1 TAB; Start 04/23/17 at 22:30 Isosorbide Mononitrate (Imdur) 60 mg BID PO Last administered on 04/28/17 09:08 ; Admin Dose 60 MG; Start 04/24/17 at 09:00 Magnesium Hydroxide (Milk Of Mag) 30 ml DAILY PRN PO CONSTIPATION; Start at 22:30 Metoprolol Tartrate (Lopressor) 25 mg BID PO Last administered on 04/28/17 09: 07; Admin Dose 25 MG; Start 04/24/17 at 09:00 Morphine Sulfate (morphine) 2 mg Q3H PRN IV PAIN Last administered on 04/28/17 09:09; Admin Dose 2 MG; Start 04/23/17 at 22:30 Multivitamins/ Minerals (Theragran-M) 1 tab DAILY PO Last administered on 09:08; Admin Dose 1 TAB; Start 04/24/17 at 09:00 Nitroglycerin (Nitroglycerin (Sl Tab) 0.4 Mg) 1 tab Q5M PRN SL CHEST PAIN; Start 04/23/17 at 22:30 Ondansetron HCl (Zofran Inj) 4 mg Q6H PRN IV NAUSEA AND/OR VOMITING Last administered on 04/27/17 17:52; Admin Dose 4 MG; Start 04/23/17 at 22:30 Acetaminophen (Tylenol Tab) 650 mg Q6H PRN PO PAIN AND OR ELEVATED TEMP Last administered on 04/25/17 09:45; Admin Dose 650 MG; Start 04/23/17 at 22:30 Atorvastatin Calcium (Lipitor) 10 mg DAILY@21 PO Last administered on 04/27/17 20:40; Admin Dose 10 MG; Start 04/24/17 at 21:00 Cilostazol (Pletal) 50 mg BID PO Last administered on 04/28/17 09:07; Admin Dose 50 MG; Start 04/24/17 at 09:00 Docusate Sodium (Colace) 100 mg Q12H PRN PO CONSTIPATION; Start 04/23/17 at 22: 30 Enoxaparin Sodium (Lovenox) 40 mg DAILY SC Last administered on 04/28/17 09:18 ; Admin Dose 40 MG; Start 04/24/17 at 09:00 Fish Oil (Fish Oil) 1,000 mg DAILY PO Last administered on 04/28/17 09:08; Admin Dose 1,000 MG; Start 04/24/17 at 09:00 Furosemide (Lasix) 20 mg DAILY@06 PO Last administered on 04/28/17 06:06; Admin Dose 20 MG; Start 04/24/17 at 06:00 Docusate Sodium (Colace) 100 mg BID PO Last administered on 04/28/17 09:07; Admin Dose 100 MG; Start 04/24/17 at 09:00 Senna (Senokot) 1 tab HS PO Last administered on 04/27/17 20:42; Admin Dose 1 TAB; Start 04/24/17 at 21:00 Bisacodyl (Dulcolax Supp) 10 mg DAILY PRN [place] CONSTIPATION; Start 04/24/17 at 00: 00 Lactulose (Enulose) 20 gm DAILY PRN PO CONSTIPATION; Start 04/24/17 at 00:00 Guaifenesin (Robitussin Liquid Cup) 100 mg Q6H PRN PO COUGH; Start 04/24/17 at 14:00 Nitrofurantoin Macrocrystals (Macrobid) 100 mg BID PO Last administered on 09:08; Admin Dose 100 MG; Start 04/26/17 at 14:30; Stop 05/03/17 at 14:29 Assessment/Plan Additional Assessment/Plan Rehab- Blunt head trauma with loss of consciousness, status post fall; Right shoulder acute tendonitis; R LE contusion; Left knee effusion Continue rehab treatment plan Acute pain syndrome-improving Hypertension. COPD. RACHEL COLUNGA MD Apr 28, 2017 12:32
--- NOTE | 2017-04-28 15:47 | CONS ---
Date/Time of Note Date/Time of Note DATE: 04/28/17 TIME: 15:46 Consult Date/Type/Reason Admit Date/Time Apr 23, 2017 at 21:07 Type of Consultation: Internal medicine Subjective Still hasmoderateshoulderpain. Objective Vital Signs Date Time Temp Pulse Resp B/P Pulse Ox O2 Delivery O2 Flow Rate FiO2 04/28/17 08:00 Nasal Cannula 2.0 04/28/17 08:00 97.8 84 18 130/63 97 Intake and Output 04/27/17 04/27/17 04/28/17 15:00 23:00 07:00 Intake Total 240 ml 420 ml 200 ml Balance 240 ml 420 ml 200 ml Results/Medications Result Diagram: 04/24/17 0645 04/24/17 0645 Medications Current Medications Tiotropium [place] (Spiriva) 1 inh DAILY INH Last administered on 04/28/17 09: 18; Admin Dose 1 INH; Start 04/24/17 at 09:00 Tramadol HCl (Ultram) 50 mg Q6H PRN PO PAIN Last administered on 04/24/17 13:49 ; Admin Dose 50 MG; Start 04/23/17 at 22:30 Ursodiol (Lit) 250 mg BID PO Last administered on 04/28/17 09:08; Admin Dose 250 MG; Start 04/24/17 at 09:00 Vitamin B Complex/ Vitamin C (Berocca) 1 cap DAILY PO Last administered on 09:08; Admin Dose 1 CAP; Start 04/24/17 at 09:00 Pantoprazole (Protonix Tab) 40 mg DAILY@06 PO Last administered on 04/28/17 06: 01; Admin Dose 40 MG; Start 04/24/17 at 06:00 Ranolazine (Ranexa) 500 mg DAILY PO Last administered on 04/28/17 09:08; Admin Dose 500 MG; Start 04/24/17 at 09:00 Calcium/Vitamin D (Oyster Shell/ Vit-D (500/200)) 1 tab BID PO Last administered on 04/28/17 09:08; Admin Dose 1 TAB; Start 04/24/17 at 09:00 Salmeterol Xinafoate/ Fluticasone (Advair 500/50 Diskus) 1 inh BID INH Last administered on 04/28/17 09:18; Admin Dose 1 INH; Start 04/24/17 at 09:00 Acetaminophen/ Hydrocodone Bitart ([place] (5/325)) 1 tab Q6H PRN PO PAIN Last administered on 04/26/17 17:35; Admin Dose 1 TAB; Start 04/23/17 at 22:30 Isosorbide Mononitrate (Imdur) 60 mg BID PO Last administered on 04/28/17 09:08 ; Admin Dose 60 MG; Start 04/24/17 at 09:00 Magnesium Hydroxide (Milk Of Mag) 30 ml DAILY PRN PO CONSTIPATION; Start at 22:30 Metoprolol Tartrate (Lopressor) 25 mg BID PO Last administered on 04/28/17 09: 07; Admin Dose 25 MG; Start 04/24/17 at 09:00 Morphine Sulfate (morphine) 2 mg Q3H PRN IV PAIN Last administered on 04/28/17 13:08; Admin Dose 2 MG; Start 04/23/17 at 22:30 Multivitamins/ Minerals (Theragran-M) 1 tab DAILY PO Last administered on 09:08; Admin Dose 1 TAB; Start 04/24/17 at 09:00 Nitroglycerin (Nitroglycerin (Sl Tab) 0.4 Mg) 1 tab Q5M PRN SL CHEST PAIN; Start 04/23/17 at 22:30 Ondansetron HCl (Zofran Inj) 4 mg Q6H PRN IV NAUSEA AND/OR VOMITING Last administered on 04/27/17 17:52; Admin Dose 4 MG; Start 04/23/17 at 22:30 Acetaminophen (Tylenol Tab) 650 mg Q6H PRN PO PAIN AND OR ELEVATED TEMP Last administered on 04/25/17 09:45; Admin Dose 650 MG; Start 04/23/17 at 22:30 Atorvastatin Calcium (Lipitor) 10 mg DAILY@21 PO Last administered on 04/27/17 20:40; Admin Dose 10 MG; Start 04/24/17 at 21:00 Cilostazol (Pletal) 50 mg BID PO Last administered on 04/28/17 09:07; Admin Dose 50 MG; Start 04/24/17 at 09:00 Docusate Sodium (Colace) 100 mg Q12H PRN PO CONSTIPATION; Start 04/23/17 at 22: 30 Enoxaparin Sodium (Lovenox) 40 mg DAILY SC Last administered on 04/28/17 09:18 ; Admin Dose 40 MG; Start 04/24/17 at 09:00 Fish Oil (Fish Oil) 1,000 mg DAILY PO Last administered on 04/28/17 09:08; Admin Dose 1,000 MG; Start 04/24/17 at 09:00 Furosemide (Lasix) 20 mg DAILY@06 PO Last administered on 04/28/17 06:06; Admin Dose 20 MG; Start 04/24/17 at 06:00 Docusate Sodium (Colace) 100 mg BID PO Last administered on 04/28/17 09:07; Admin Dose 100 MG; Start 04/24/17 at 09:00 Senna (Senokot) 1 tab HS PO Last administered on 04/27/17 20:42; Admin Dose 1 TAB; Start 04/24/17 at 21:00 Bisacodyl (Dulcolax Supp) 10 mg DAILY PRN [place] CONSTIPATION; Start 04/24/17 at 00: 00 Lactulose (Enulose) 20 gm DAILY PRN PO CONSTIPATION Last administered on 14:53; Admin Dose 20 GM; Start 04/24/17 at 00:00 Guaifenesin (Robitussin Liquid Cup) 100 mg Q6H PRN PO COUGH; Start 04/24/17 at 14:00 Nitrofurantoin Macrocrystals (Macrobid) 100 mg BID PO Last administered on 09:08; Admin Dose 100 MG; Start 04/26/17 at 14:30; Stop 05/03/17 at 14:29 Assessment/Plan Chief Complaint/Hosp Course Assessment 1. Mechanical fall with shoulder injury 2. History of restrictive lung disease secondary to kyphoscoliosis, chronic hypoxemic respiratory failure 3. e coli uti Plan 1. Continue PT 2. Continue pain control 3. nitrofurantoin for uti. Problems: BETZY OLIVO MD, [facility] Apr 28, 2017 15:47
[2017-04-28 20:00] VITALS: BP 134/64; RESP 18
[2017-04-28] MEDS: ATORVASTATIN 10 MG TAB PO SCH (20:36)
[2017-04-28] MEDS: SENNA TAB PO SCH (20:36)
[2017-04-29 02:00] VITALS: BP 138/65; RESP 18
[2017-04-29] MEDS: FUROSEMIDE 20 MG TAB PO SCH (06:16)
[2017-04-29] MEDS: PANTOPRAZOLE (EC) 40 MG TAB PO SCH (06:16)
[2017-04-29 08:00] VITALS: BP 122/58; RESP 18
[2017-04-29] MEDS: TIOTROPIUM 18 MCG CAPSULE INHA DEV INH SCH (08:19)
[2017-04-29] MEDS: SALMETEROL/FLUTICASONE 500/50 INHA INH SCH ×2 (08:19→20:43)
[2017-04-29] MEDS: SUCRALFATE (100 MG/ML) 10ML CUP PO SCH ×4 (08:19→20:47)
[2017-04-29] MEDS: MULTIVITAMINS/MINERALS TAB PO SCH (08:21)
[2017-04-29] MEDS: URSODIOL 250 MG TAB PO SCH ×2 (08:21→20:42)
[2017-04-29] MEDS: ENOXAPARIN 40 MG/0.4 ML SYG SC SCH (08:21)
[2017-04-29] MEDS: RANOLAZINE (SR) 500 MG TAB PO SCH (08:21)
[2017-04-29] MEDS: NITROFURANTOIN (SR) 100 MG CAP PO SCH ×2 (08:22→20:42)
[2017-04-29] MEDS: CILOSTAZOL 100 MG TAB PO SCH ×2 (08:22→20:42)
[2017-04-29] MEDS: CALCIUM/VITAMIN D (500/200) TAB PO SCH ×2 (08:22→20:42)
[2017-04-29] MEDS: FISH OIL 1,000 MG CAP PO SCH (08:23)
[2017-04-29] MEDS: METOPROLOL 25 MG TAB PO SCH ×2 (08:23→20:41)
[2017-04-29] MEDS: ISOSORBIDE MONONITRATE(SR)60 MG TAB PO SCH ×2 (08:23→20:42)
[2017-04-29] MEDS: VITAMIN B COMPLEX/VIT C CAP PO SCH (08:24)
[2017-04-29] MEDS: DOCUSATE SODIUM 100 MG CAP PO SCH ×2 (08:24→20:41)
[2017-04-29] MEDS: morphine 2 MG INJ IV PRN (10:32)
--- NOTE | 2017-04-29 10:59 | CONS ---
Date/Time of Note Date/Time of Note DATE: 04/29/17 TIME: 10:58 Consult Date/Type/Reason Admit Date/Time Apr 23, 2017 at 21:07 Type of Consultation: Internal medicine Subjective Patient in good spirits Still with some shoulder discomfort Objective pulm-cta min assist ambulation Vital Signs Date Time Temp Pulse Resp B/P Pulse Ox O2 Delivery O2 Flow Rate FiO2 04/29/17 08:00 98.6 70 18 122/58 96 04/28/17 20:10 Nasal Cannula 2.0 Intake and Output 04/28/17 04/28/17 04/29/17 15:00 23:00 07:00 Intake Total 720 ml 360 ml 180 ml Balance 720 ml 360 ml 180 ml Results/Medications Medications Current Medications Tiotropium [place] (Spiriva) 1 inh DAILY INH Last administered on 04/29/17 08: 19; Admin Dose 1 INH; Start 04/24/17 at 09:00 Tramadol HCl (Ultram) 50 mg Q6H PRN PO PAIN Last administered on 04/24/17 13:49 ; Admin Dose 50 MG; Start 04/23/17 at 22:30 Ursodiol (Lit) 250 mg BID PO Last administered on 04/29/17 08:21; Admin Dose 250 MG; Start 04/24/17 at 09:00 Vitamin B Complex/ Vitamin C (Berocca) 1 cap DAILY PO Last administered on 08:24; Admin Dose 1 CAP; Start 04/24/17 at 09:00 Pantoprazole (Protonix Tab) 40 mg DAILY@06 PO Last administered on 04/29/17 06: 16; Admin Dose 40 MG; Start 04/24/17 at 06:00 Ranolazine (Ranexa) 500 mg DAILY PO Last administered on 04/29/17 08:21; Admin Dose 500 MG; Start 04/24/17 at 09:00 Calcium/Vitamin D (Oyster Shell/ Vit-D (500/200)) 1 tab BID PO Last administered on 04/29/17 08:22; Admin Dose 1 TAB; Start 04/24/17 at 09:00 Salmeterol Xinafoate/ Fluticasone (Advair 500/50 Diskus) 1 inh BID INH Last administered on 04/29/17 08:19; Admin Dose 1 INH; Start 04/24/17 at 09:00 Acetaminophen/ Hydrocodone Bitart ([place] (5/325)) 1 tab Q6H PRN PO PAIN Last administered on 04/26/17 17:35; Admin Dose 1 TAB; Start 04/23/17 at 22:30 Isosorbide Mononitrate (Imdur) 60 mg BID PO Last administered on 04/29/17 08:23 ; Admin Dose 60 MG; Start 04/24/17 at 09:00 Magnesium Hydroxide (Milk Of Mag) 30 ml DAILY PRN PO CONSTIPATION; Start at 22:30 Metoprolol Tartrate (Lopressor) 25 mg BID PO Last administered on 04/29/17 08: 23; Admin Dose 25 MG; Start 04/24/17 at 09:00 Morphine Sulfate (morphine) 2 mg Q3H PRN IV PAIN Last administered on 04/29/17 10:32; Admin Dose 2 MG; Start 04/23/17 at 22:30 Multivitamins/ Minerals (Theragran-M) 1 tab DAILY PO Last administered on 08:21; Admin Dose 1 TAB; Start 04/24/17 at 09:00 Nitroglycerin (Nitroglycerin (Sl Tab) 0.4 Mg) 1 tab Q5M PRN SL CHEST PAIN; Start 04/23/17 at 22:30 Ondansetron HCl (Zofran Inj) 4 mg Q6H PRN IV NAUSEA AND/OR VOMITING Last administered on 04/27/17 17:52; Admin Dose 4 MG; Start 04/23/17 at 22:30 Acetaminophen (Tylenol Tab) 650 mg Q6H PRN PO PAIN AND OR ELEVATED TEMP Last administered on 04/25/17 09:45; Admin Dose 650 MG; Start 04/23/17 at 22:30 Atorvastatin Calcium (Lipitor) 10 mg DAILY@21 PO Last administered on 04/28/17 20:36; Admin Dose 10 MG; Start 04/24/17 at 21:00 Cilostazol (Pletal) 50 mg BID PO Last administered on 04/29/17 08:22; Admin Dose 50 MG; Start 04/24/17 at 09:00 Docusate Sodium (Colace) 100 mg Q12H PRN PO CONSTIPATION; Start 04/23/17 at 22: 30 Enoxaparin Sodium (Lovenox) 40 mg DAILY SC Last administered on 04/29/17 08:21 ; Admin Dose 40 MG; Start 04/24/17 at 09:00 Fish Oil (Fish Oil) 1,000 mg DAILY PO Last administered on 04/29/17 08:23; Admin Dose 1,000 MG; Start 04/24/17 at 09:00 Furosemide (Lasix) 20 mg DAILY@06 PO Last administered on 04/29/17 06:16; Admin Dose 20 MG; Start 04/24/17 at 06:00 Docusate Sodium (Colace) 100 mg BID PO Last administered on 04/29/17 08:24; Admin Dose 100 MG; Start 04/24/17 at 09:00 Senna (Senokot) 1 tab HS PO Last administered on 04/28/17 20:36; Admin Dose 1 TAB; Start 04/24/17 at 21:00 Bisacodyl (Dulcolax Supp) 10 mg DAILY PRN [place] CONSTIPATION; Start 04/24/17 at 00: 00 Lactulose (Enulose) 20 gm DAILY PRN PO CONSTIPATION Last administered on 14:53; Admin Dose 20 GM; Start 04/24/17 at 00:00 Guaifenesin (Robitussin Liquid Cup) 100 mg Q6H PRN PO COUGH; Start 04/24/17 at 14:00 Nitrofurantoin Macrocrystals (Macrobid) 100 mg BID PO Last administered on 08:22; Admin Dose 100 MG; Start 04/26/17 at 14:30; Stop 05/03/17 at 14:29 Assessment/Plan Additional Assessment/Plan Rehab- Blunt head trauma with loss of consciousness, status post fall; Right shoulder acute tendonitis; R LE contusion; Left knee effusion Overall excellent progress. Continue rehab plan Acute pain syndrome-improving Hypertension. COPD. RACHEL COLUNGA MD Apr 29, 2017 10:59
--- NOTE | 2017-04-29 16:47 | CONS ---
Date/Time of Note Date/Time of Note DATE: 04/29/17 TIME: 16:47 Consult Date/Type/Reason Admit Date/Time Apr 23, 2017 at 21:07 Type of Consultation: Internal medicine Subjective remains comfortable. Objective Vital Signs Date Time Temp Pulse Resp B/P Pulse Ox O2 Delivery O2 Flow Rate FiO2 04/29/17 08:20 Nasal Cannula 2.0 04/29/17 08:00 98.6 70 18 122/58 96 Intake and Output 04/28/17 04/28/17 04/29/17 15:00 23:00 07:00 Intake Total 720 ml 360 ml 180 ml Balance 720 ml 360 ml 180 ml Exam GENERAL: Chronically ill-appearing lady comfortable at rest kyphoscoliosis VITAL SIGNS: per chart NECK: Supple. No JVD or lymphadenopathy. CARDIAC EXAM: S1, S2. No added sounds or murmurs. CHEST: Diminished air entry both lung floyd ABDOMEN: Soft, nontender. No guarding or rebound. EXTREMITIES: No cyanosis, clubbing or edema. NEUROLOGIC: Generalized weakness. No focal deficits. Results/Medications Medications Current Medications Tiotropium [place] (Spiriva) 1 inh DAILY INH Last administered on 04/29/17 08: 19; Admin Dose 1 INH; Start 04/24/17 at 09:00 Tramadol HCl (Ultram) 50 mg Q6H PRN PO PAIN Last administered on 04/24/17 13:49 ; Admin Dose 50 MG; Start 04/23/17 at 22:30 Ursodiol (Lit) 250 mg BID PO Last administered on 04/29/17 08:21; Admin Dose 250 MG; Start 04/24/17 at 09:00 Vitamin B Complex/ Vitamin C (Berocca) 1 cap DAILY PO Last administered on 08:24; Admin Dose 1 CAP; Start 04/24/17 at 09:00 Pantoprazole (Protonix Tab) 40 mg DAILY@06 PO Last administered on 04/29/17 06: 16; Admin Dose 40 MG; Start 04/24/17 at 06:00 Ranolazine (Ranexa) 500 mg DAILY PO Last administered on 04/29/17 08:21; Admin Dose 500 MG; Start 04/24/17 at 09:00 Calcium/Vitamin D (Oyster Shell/ Vit-D (500/200)) 1 tab BID PO Last administered on 04/29/17 08:22; Admin Dose 1 TAB; Start 04/24/17 at 09:00 Salmeterol Xinafoate/ Fluticasone (Advair 500/50 Diskus) 1 inh BID INH Last administered on 04/29/17 08:19; Admin Dose 1 INH; Start 04/24/17 at 09:00 Acetaminophen/ Hydrocodone Bitart ([place] (5/325)) 1 tab Q6H PRN PO PAIN Last administered on 04/26/17 17:35; Admin Dose 1 TAB; Start 04/23/17 at 22:30 Isosorbide Mononitrate (Imdur) 60 mg BID PO Last administered on 04/29/17 08:23 ; Admin Dose 60 MG; Start 04/24/17 at 09:00 Magnesium Hydroxide (Milk Of Mag) 30 ml DAILY PRN PO CONSTIPATION; Start at 22:30 Metoprolol Tartrate (Lopressor) 25 mg BID PO Last administered on 04/29/17 08: 23; Admin Dose 25 MG; Start 04/24/17 at 09:00 Multivitamins/ Minerals (Theragran-M) 1 tab DAILY PO Last administered on 08:21; Admin Dose 1 TAB; Start 04/24/17 at 09:00 Nitroglycerin (Nitroglycerin (Sl Tab) 0.4 Mg) 1 tab Q5M PRN SL CHEST PAIN; Start 04/23/17 at 22:30 Ondansetron HCl (Zofran Inj) 4 mg Q6H PRN IV NAUSEA AND/OR VOMITING Last administered on 04/27/17 17:52; Admin Dose 4 MG; Start 04/23/17 at 22:30 Acetaminophen (Tylenol Tab) 650 mg Q6H PRN PO PAIN AND OR ELEVATED TEMP Last administered on 04/25/17 09:45; Admin Dose 650 MG; Start 04/23/17 at 22:30 Atorvastatin Calcium (Lipitor) 10 mg DAILY@21 PO Last administered on 04/28/17 20:36; Admin Dose 10 MG; Start 04/24/17 at 21:00 Cilostazol (Pletal) 50 mg BID PO Last administered on 04/29/17 08:22; Admin Dose 50 MG; Start 04/24/17 at 09:00 Docusate Sodium (Colace) 100 mg Q12H PRN PO CONSTIPATION; Start 04/23/17 at 22: 30 Enoxaparin Sodium (Lovenox) 40 mg DAILY SC Last administered on 04/29/17 08:21 ; Admin Dose 40 MG; Start 04/24/17 at 09:00 Fish Oil (Fish Oil) 1,000 mg DAILY PO Last administered on 04/29/17 08:23; Admin Dose 1,000 MG; Start 04/24/17 at 09:00 Furosemide (Lasix) 20 mg DAILY@06 PO Last administered on 04/29/17 06:16; Admin Dose 20 MG; Start 04/24/17 at 06:00 Docusate Sodium (Colace) 100 mg BID PO Last administered on 04/29/17 08:24; Admin Dose 100 MG; Start 04/24/17 at 09:00 Senna (Senokot) 1 tab HS PO Last administered on 04/28/17 20:36; Admin Dose 1 TAB; Start 04/24/17 at 21:00 Bisacodyl (Dulcolax Supp) 10 mg DAILY PRN [place] CONSTIPATION; Start 04/24/17 at 00: 00 Lactulose (Enulose) 20 gm DAILY PRN PO CONSTIPATION Last administered on 14:53; Admin Dose 20 GM; Start 04/24/17 at 00:00 Guaifenesin (Robitussin Liquid Cup) 100 mg Q6H PRN PO COUGH; Start 04/24/17 at 14:00 Nitrofurantoin Macrocrystals (Macrobid) 100 mg BID PO Last administered on 08:22; Admin Dose 100 MG; Start 04/26/17 at 14:30; Stop 05/03/17 at 14:29 Assessment/Plan Chief Complaint/Hosp Course Assessment 1. Mechanical fall with shoulder injury 2. History of restrictive lung disease secondary to kyphoscoliosis, chronic hypoxemic respiratory failure 3. e coli uti Plan 1. Continue PT 2. Continue pain control 3. nitrofurantoin for uti. 4. Decrease pain meds as tolerated. ` Problems: [facility]IV[facility], [facility] Apr 29, 2017 16:47
[2017-04-29 19:40] VITALS: BP 125/70; PULSE 74; RESP 18
[2017-04-29] MEDS: ATORVASTATIN 10 MG TAB PO SCH (20:42)
[2017-04-29] MEDS: SENNA TAB PO SCH (20:42)
[2017-04-29] MEDS: HYDROCODONE/APAP (5/325) TAB PO PRN (20:43)
[2017-04-30] MEDS: PANTOPRAZOLE (EC) 40 MG TAB PO SCH (06:09)
[2017-04-30] MEDS: SUCRALFATE (100 MG/ML) 10ML CUP PO SCH ×4 (06:10→20:38)
[2017-04-30] MEDS: FUROSEMIDE 20 MG TAB PO SCH (06:10)
[2017-04-30 07:30] VITALS: BP 166/72; RESP 20
[2017-04-30 08:15] VITALS: BP 130/80
[2017-04-30] MEDS: TIOTROPIUM 18 MCG CAPSULE INHA DEV INH SCH (10:34)
[2017-04-30] MEDS: SALMETEROL/FLUTICASONE 500/50 INHA INH SCH ×2 (10:34→20:38)
[2017-04-30] MEDS: URSODIOL 250 MG TAB PO SCH ×2 (10:34→20:40)
[2017-04-30] MEDS: FISH OIL 1,000 MG CAP PO SCH (10:34)
[2017-04-30] MEDS: ISOSORBIDE MONONITRATE(SR)60 MG TAB PO SCH ×2 (10:35→20:39)
[2017-04-30] MEDS: MULTIVITAMINS/MINERALS TAB PO SCH (10:35)
[2017-04-30] MEDS: DOCUSATE SODIUM 100 MG CAP PO SCH ×2 (10:35→20:39)
[2017-04-30] MEDS: VITAMIN B COMPLEX/VIT C CAP PO SCH (10:35)
[2017-04-30] MEDS: traMADol 50 MG TAB PO PRN ×2 (10:36→15:39)
[2017-04-30] MEDS: METOPROLOL 25 MG TAB PO SCH ×2 (10:36→20:39)
[2017-04-30] MEDS: NITROFURANTOIN (SR) 100 MG CAP PO SCH ×2 (10:36→20:40)
[2017-04-30] MEDS: CALCIUM/VITAMIN D (500/200) TAB PO SCH ×2 (10:37→20:38)
[2017-04-30] MEDS: RANOLAZINE (SR) 500 MG TAB PO SCH (10:38)
[2017-04-30] MEDS: CILOSTAZOL 100 MG TAB PO SCH ×2 (10:38→20:39)
[2017-04-30] MEDS: ENOXAPARIN 40 MG/0.4 ML SYG SC SCH (10:45)
--- NOTE | 2017-04-30 11:39 | CONS ---
Date/Time of Note Date/Time of Note DATE: 04/30/17 TIME: 11:39 Consult Date/Type/Reason Admit Date/Time Apr 23, 2017 at 21:07 Type of Consultation: Internal medicine Subjective comfortable Objective Vital Signs Date Time Temp Pulse Resp B/P Pulse Ox O2 Delivery O2 Flow Rate FiO2 04/30/17 08:15 130/80 04/30/17 07:30 98.6 66 20 100 04/29/17 20:00 Nasal Cannula 2.0 Intake and Output 04/29/17 04/29/17 04/30/17 15:00 23:00 07:00 Intake Total 396 ml 360 ml Output Total 180 ml Balance 216 ml 360 ml Exam GENERAL: Chronically ill-appearing lady comfortable at rest kyphoscoliosis VITAL SIGNS: per chart NECK: Supple. No JVD or lymphadenopathy. CARDIAC EXAM: S1, S2. No added sounds or murmurs. CHEST: Diminished air entry both lung floyd ABDOMEN: Soft, nontender. No guarding or rebound. EXTREMITIES: No cyanosis, clubbing or edema. NEUROLOGIC: Generalized weakness. No focal deficits. Results/Medications Medications Current Medications Tiotropium [place] (Spiriva) 1 inh DAILY INH Last administered on 04/30/17 10: 34; Admin Dose 1 INH; Start 04/24/17 at 09:00 Tramadol HCl (Ultram) 50 mg Q6H PRN PO PAIN Last administered on 04/30/17 10:36 ; Admin Dose 50 MG; Start 04/23/17 at 22:30 Ursodiol (Lit) 250 mg BID PO Last administered on 04/30/17 10:34; Admin Dose 250 MG; Start 04/24/17 at 09:00 Vitamin B Complex/ Vitamin C (Berocca) 1 cap DAILY PO Last administered on 10:35; Admin Dose 1 CAP; Start 04/24/17 at 09:00 Pantoprazole (Protonix Tab) 40 mg DAILY@06 PO Last administered on 04/30/17 06: 09; Admin Dose 40 MG; Start 04/24/17 at 06:00 Ranolazine (Ranexa) 500 mg DAILY PO Last administered on 04/30/17 10:38; Admin Dose 500 MG; Start 04/24/17 at 09:00 Calcium/Vitamin D (Oyster Shell/ Vit-D (500/200)) 1 tab BID PO Last administered on 04/30/17 10:37; Admin Dose 1 TAB; Start 04/24/17 at 09:00 Salmeterol Xinafoate/ Fluticasone (Advair 500/50 Diskus) 1 inh BID INH Last administered on 04/30/17 10:34; Admin Dose 1 INH; Start 04/24/17 at 09:00 Acetaminophen/ Hydrocodone Bitart ([place] (5/325)) 1 tab Q6H PRN PO PAIN Last administered on 04/29/17 20:43; Admin Dose 1 TAB; Start 04/23/17 at 22:30 Isosorbide Mononitrate (Imdur) 60 mg BID PO Last administered on 04/30/17 10:35 ; Admin Dose 60 MG; Start 04/24/17 at 09:00 Magnesium Hydroxide (Milk Of Mag) 30 ml DAILY PRN PO CONSTIPATION; Start at 22:30 Metoprolol Tartrate (Lopressor) 25 mg BID PO Last administered on 04/30/17 10: 36; Admin Dose 25 MG; Start 04/24/17 at 09:00 Multivitamins/ Minerals (Theragran-M) 1 tab DAILY PO Last administered on 10:35; Admin Dose 1 TAB; Start 04/24/17 at 09:00 Nitroglycerin (Nitroglycerin (Sl Tab) 0.4 Mg) 1 tab Q5M PRN SL CHEST PAIN; Start 04/23/17 at 22:30 Ondansetron HCl (Zofran Inj) 4 mg Q6H PRN IV NAUSEA AND/OR VOMITING Last administered on 04/27/17 17:52; Admin Dose 4 MG; Start 04/23/17 at 22:30 Acetaminophen (Tylenol Tab) 650 mg Q6H PRN PO PAIN AND OR ELEVATED TEMP Last administered on 04/25/17 09:45; Admin Dose 650 MG; Start 04/23/17 at 22:30 Atorvastatin Calcium (Lipitor) 10 mg DAILY@21 PO Last administered on 04/29/17 20:42; Admin Dose 10 MG; Start 04/24/17 at 21:00 Cilostazol (Pletal) 50 mg BID PO Last administered on 04/30/17 10:38; Admin Dose 50 MG; Start 04/24/17 at 09:00 Docusate Sodium (Colace) 100 mg Q12H PRN PO CONSTIPATION; Start 04/23/17 at 22: 30 Enoxaparin Sodium (Lovenox) 40 mg DAILY SC Last administered on 04/30/17 10:45 ; Admin Dose 40 MG; Start 04/24/17 at 09:00 Fish Oil (Fish Oil) 1,000 mg DAILY PO Last administered on 04/30/17 10:34; Admin Dose 1,000 MG; Start 04/24/17 at 09:00 Furosemide (Lasix) 20 mg DAILY@06 PO Last administered on 04/30/17 06:10; Admin Dose 20 MG; Start 04/24/17 at 06:00 Docusate Sodium (Colace) 100 mg BID PO Last administered on 04/30/17 10:35; Admin Dose 100 MG; Start 04/24/17 at 09:00 Senna (Senokot) 1 tab HS PO Last administered on 04/29/17 20:42; Admin Dose 1 TAB; Start 04/24/17 at 21:00 Bisacodyl (Dulcolax Supp) 10 mg DAILY PRN [place] CONSTIPATION; Start 04/24/17 at 00: 00 Lactulose (Enulose) 20 gm DAILY PRN PO CONSTIPATION Last administered on 14:53; Admin Dose 20 GM; Start 04/24/17 at 00:00 Guaifenesin (Robitussin Liquid Cup) 100 mg Q6H PRN PO COUGH; Start 04/24/17 at 14:00 Nitrofurantoin Macrocrystals (Macrobid) 100 mg BID PO Last administered on 10:36; Admin Dose 100 MG; Start 04/26/17 at 14:30; Stop 05/03/17 at 14:29 Assessment/Plan Chief Complaint/Hosp Course Assessment 1. Mechanical fall with shoulder injury 2. History of restrictive lung disease secondary to kyphoscoliosis, chronic hypoxemic respiratory failure 3. e coli uti Plan 1. Continue PT 2. Continue pain control 3. nitrofurantoin for uti. 4. Decrease pain meds as tolerated. ` Problems: BETZY OLIVO MD, [facility] Apr 30, 2017 11:39
--- NOTE | 2017-04-30 11:45 | CONS ---
Date/Time of Note Date/Time of Note DATE: 04/30/17 TIME: 11:44 Consult Date/Type/Reason Admit Date/Time Apr 23, 2017 at 21:07 Type of Consultation: Internal medicine Subjective Comfortable Objective pulm-cta abd-soft cga ambulation Vital Signs Date Time Temp Pulse Resp B/P Pulse Ox O2 Delivery O2 Flow Rate FiO2 04/30/17 08:15 130/80 04/30/17 07:30 98.6 66 20 100 04/29/17 20:00 Nasal Cannula 2.0 Intake and Output 04/29/17 04/29/17 04/30/17 15:00 23:00 07:00 Intake Total 396 ml 360 ml Output Total 180 ml Balance 216 ml 360 ml Results/Medications Medications Current Medications Tiotropium [place] (Spiriva) 1 inh DAILY INH Last administered on 04/30/17 10: 34; Admin Dose 1 INH; Start 04/24/17 at 09:00 Tramadol HCl (Ultram) 50 mg Q6H PRN PO PAIN Last administered on 04/30/17 10:36 ; Admin Dose 50 MG; Start 04/23/17 at 22:30 Ursodiol (Lit) 250 mg BID PO Last administered on 04/30/17 10:34; Admin Dose 250 MG; Start 04/24/17 at 09:00 Vitamin B Complex/ Vitamin C (Berocca) 1 cap DAILY PO Last administered on 10:35; Admin Dose 1 CAP; Start 04/24/17 at 09:00 Pantoprazole (Protonix Tab) 40 mg DAILY@06 PO Last administered on 04/30/17 06: 09; Admin Dose 40 MG; Start 04/24/17 at 06:00 Ranolazine (Ranexa) 500 mg DAILY PO Last administered on 04/30/17 10:38; Admin Dose 500 MG; Start 04/24/17 at 09:00 Calcium/Vitamin D (Oyster Shell/ Vit-D (500/200)) 1 tab BID PO Last administered on 04/30/17 10:37; Admin Dose 1 TAB; Start 04/24/17 at 09:00 Salmeterol Xinafoate/ Fluticasone (Advair 500/50 Diskus) 1 inh BID INH Last administered on 04/30/17 10:34; Admin Dose 1 INH; Start 04/24/17 at 09:00 Acetaminophen/ Hydrocodone Bitart ([place] (5/325)) 1 tab Q6H PRN PO PAIN Last administered on 04/29/17 20:43; Admin Dose 1 TAB; Start 04/23/17 at 22:30 Isosorbide Mononitrate (Imdur) 60 mg BID PO Last administered on 04/30/17 10:35 ; Admin Dose 60 MG; Start 04/24/17 at 09:00 Magnesium Hydroxide (Milk Of Mag) 30 ml DAILY PRN PO CONSTIPATION; Start at 22:30 Metoprolol Tartrate (Lopressor) 25 mg BID PO Last administered on 04/30/17 10: 36; Admin Dose 25 MG; Start 04/24/17 at 09:00 Multivitamins/ Minerals (Theragran-M) 1 tab DAILY PO Last administered on 10:35; Admin Dose 1 TAB; Start 04/24/17 at 09:00 Nitroglycerin (Nitroglycerin (Sl Tab) 0.4 Mg) 1 tab Q5M PRN SL CHEST PAIN; Start 04/23/17 at 22:30 Ondansetron HCl (Zofran Inj) 4 mg Q6H PRN IV NAUSEA AND/OR VOMITING Last administered on 04/27/17 17:52; Admin Dose 4 MG; Start 04/23/17 at 22:30 Acetaminophen (Tylenol Tab) 650 mg Q6H PRN PO PAIN AND OR ELEVATED TEMP Last administered on 04/25/17 09:45; Admin Dose 650 MG; Start 04/23/17 at 22:30 Atorvastatin Calcium (Lipitor) 10 mg DAILY@21 PO Last administered on 04/29/17 20:42; Admin Dose 10 MG; Start 04/24/17 at 21:00 Cilostazol (Pletal) 50 mg BID PO Last administered on 04/30/17 10:38; Admin Dose 50 MG; Start 04/24/17 at 09:00 Docusate Sodium (Colace) 100 mg Q12H PRN PO CONSTIPATION; Start 04/23/17 at 22: 30 Enoxaparin Sodium (Lovenox) 40 mg DAILY SC Last administered on 04/30/17 10:45 ; Admin Dose 40 MG; Start 04/24/17 at 09:00 Fish Oil (Fish Oil) 1,000 mg DAILY PO Last administered on 04/30/17 10:34; Admin Dose 1,000 MG; Start 04/24/17 at 09:00 Furosemide (Lasix) 20 mg DAILY@06 PO Last administered on 04/30/17 06:10; Admin Dose 20 MG; Start 04/24/17 at 06:00 Docusate Sodium (Colace) 100 mg BID PO Last administered on 04/30/17 10:35; Admin Dose 100 MG; Start 04/24/17 at 09:00 Senna (Senokot) 1 tab HS PO Last administered on 04/29/17 20:42; Admin Dose 1 TAB; Start 04/24/17 at 21:00 Bisacodyl (Dulcolax Supp) 10 mg DAILY PRN [place] CONSTIPATION; Start 04/24/17 at 00: 00 Lactulose (Enulose) 20 gm DAILY PRN PO CONSTIPATION Last administered on 14:53; Admin Dose 20 GM; Start 04/24/17 at 00:00 Guaifenesin (Robitussin Liquid Cup) 100 mg Q6H PRN PO COUGH; Start 04/24/17 at 14:00 Nitrofurantoin Macrocrystals (Macrobid) 100 mg BID PO Last administered on 10:36; Admin Dose 100 MG; Start 04/26/17 at 14:30; Stop 05/03/17 at 14:29 Assessment/Plan Additional Assessment/Plan Rehab- Blunt head trauma with loss of consciousness, status post fall; Right shoulder acute tendonitis; R LE contusion; Left knee effusion Continue rehab treatment plan Acute pain syndrome-improving Hypertension. COPD. RACHEL COLUNGA MD Apr 30, 2017 11:45
[2017-04-30 14:00] VITALS: BP 102/57; RESP 20
[2017-04-30] MEDS ORDERED: ONDANSETRON 4 MG TAB PO PRN (17:30)
[2017-04-30 20:00] VITALS: BP 135/65; RESP 18
[2017-04-30] MEDS: ATORVASTATIN 10 MG TAB PO SCH (20:38)
[2017-04-30] MEDS: SENNA TAB PO SCH (20:38)
[2017-05-01 02:00] VITALS: BP 124/61; RESP 18
[2017-05-01] MEDS: ACETAMINOPHEN 325 MG TAB PO PRN (06:14)
[2017-05-01] MEDS: PANTOPRAZOLE (EC) 40 MG TAB PO SCH (06:14)
[2017-05-01] MEDS: SUCRALFATE (100 MG/ML) 10ML CUP PO SCH ×4 (06:14→20:17)
[2017-05-01] MEDS: FUROSEMIDE 20 MG TAB PO SCH (06:15)
[2017-05-01 07:30] VITALS: BP 125/58; RESP 20
[2017-05-01 07:39] LABS: BASOPHILS % 0.5 % (0.0-2.0); EOSINOPHILS # 0.3 10^3/ul (0.0-0.5); EOSINOPHILS % 3.2 % (0.0-7.0); HEMATOCRIT 35.7 % (37.0-47.0); HEMOGLOBIN 11.2 g/dl (12.0-16.0); LYMPHOCYTES # 1.1 10^3/ul (0.8-2.9); MEAN CORPUSCULAR HEMOGLOBIN 23.8 pg (29.0-33.0); MEAN CORPUSCULAR HGB CONC 31.4 g/dl (32.0-37.0); MEAN PLATELET VOLUME 9.6 fl (7.4-10.4); MONOCYTE # 0.9 10^3/ul (0.3-0.9); MONOCYTES % 11.5 % (0.0-11.0); NEUTROPHILS % 70.4 % (39.0-77.0); PLATELET COUNT 287 10^3/UL (140-415); WHITE BLOOD COUNT 8.1 10^3/ul (4.8-10.8)
[2017-05-01 08:18] LABS: CALCIUM 9.5 mg/dl (8.4-10.2); CREATININE 0.64 mg/dl (0.44-1.00); POTASSIUM 4.7 mmol/L (3.5-5.1)
[2017-05-01] MEDS: ENOXAPARIN 40 MG/0.4 ML SYG SC SCH (09:29)
[2017-05-01] MEDS: SALMETEROL/FLUTICASONE 500/50 INHA INH SCH ×2 (09:30→20:17)
[2017-05-01] MEDS: TIOTROPIUM 18 MCG CAPSULE INHA DEV INH SCH (09:30)
[2017-05-01] MEDS: CILOSTAZOL 100 MG TAB PO SCH ×2 (09:31→20:18)
[2017-05-01] MEDS: VITAMIN B COMPLEX/VIT C CAP PO SCH (09:31)
[2017-05-01] MEDS: URSODIOL 250 MG TAB PO SCH ×2 (09:31→20:18)
[2017-05-01] MEDS: NITROFURANTOIN (SR) 100 MG CAP PO SCH ×2 (09:31→20:18)
[2017-05-01] MEDS: CALCIUM/VITAMIN D (500/200) TAB PO SCH ×2 (09:31→20:18)
[2017-05-01] MEDS: RANOLAZINE (SR) 500 MG TAB PO SCH (09:31)
[2017-05-01] MEDS: FISH OIL 1,000 MG CAP PO SCH (09:31)
[2017-05-01] MEDS: METOPROLOL 25 MG TAB PO SCH ×2 (09:32→22:00)
[2017-05-01] MEDS: MULTIVITAMINS/MINERALS TAB PO SCH (09:32)
[2017-05-01] MEDS: DOCUSATE SODIUM 100 MG CAP PO SCH ×2 (09:32→20:18)
[2017-05-01] MEDS: ISOSORBIDE MONONITRATE(SR)60 MG TAB PO SCH ×2 (09:32→20:18)
--- NOTE | 2017-05-01 10:35 | CONS ---
Date/Time of Note Date/Time of Note DATE: 05/01/17 TIME: 10:34 Consult Date/Type/Reason Admit Date/Time Apr 23, 2017 at 21:07 Type of Consultation: Internal medicine Subjective Reports some Right shoulder discomfort Objective pulm-cta abd-soft min assist Vital Signs Date Time Temp Pulse Resp B/P Pulse Ox O2 Delivery O2 Flow Rate FiO2 05/01/17 07:30 98.4 75 20 125/58 99 04/30/17 20:00 Nasal Cannula 2.0 Intake and Output 04/30/17 04/30/17 05/01/17 14:59 22:59 06:59 Intake Total 420 ml 550 ml Balance 420 ml 550 ml Results/Medications Result Diagram: 05/01/1725 05/01/17 0625 Results 24 hrs Laboratory Tests Test 05/01/17 06:25 White Blood Count 8.1 Red Blood Count 4.70 Hemoglobin 11.2 L Hematocrit 35.7 L Mean Corpuscular Volume 76.0 L Mean Corpuscular Hemoglobin 23.8 L Mean Corpuscular Hemoglobin Concent 31.4 L Red Cell Distribution Width 19.0 H Platelet Count 287 # Mean Platelet Volume 9.6 Neutrophils % 70.4 Lymphocytes % 14.0 L Monocytes % 11.5 H Eosinophils % 3.2 Basophils % 0.5 Nucleated Red Blood Cells % 0.0 Neutrophils # (Manual) 5.7 Lymphocytes # 1.1 Monocytes # 0.9 Eosinophils # 0.3 Basophils # 0.0 Nucleated Red Blood Cells # 0.0 Sodium Level 129 L Potassium Level 4.7 Chloride Level 86 L Carbon Dioxide Level 37 H Anion Gap 11 Blood Urea Nitrogen 24 H Creatinine 0.64 Glucose Level 102 Calcium Level 9.5 Medications Current Medications Tiotropium [place] (Spiriva) 1 inh DAILY INH Last administered on 05/01/17 09: 30; Admin Dose 1 INH; Start 04/24/17 at 09:00 Tramadol HCl (Ultram) 50 mg Q6H PRN PO PAIN Last administered on 04/30/17 15:39 ; Admin Dose 50 MG; Start 04/23/17 at 22:30 Ursodiol (Lit) 250 mg BID PO Last administered on 05/01/17 09:31; Admin Dose 250 MG; Start 04/24/17 at 09:00 Vitamin B Complex/ Vitamin C (Berocca) 1 cap DAILY PO Last administered on 09:31; Admin Dose 1 CAP; Start 04/24/17 at 09:00 Pantoprazole (Protonix Tab) 40 mg DAILY@06 PO Last administered on 05/01/17 06: 14; Admin Dose 40 MG; Start 04/24/17 at 06:00 Ranolazine (Ranexa) 500 mg DAILY PO Last administered on 05/01/17 09:31; Admin Dose 500 MG; Start 04/24/17 at 09:00 Calcium/Vitamin D (Oyster Shell/ Vit-D (500/200)) 1 tab BID PO Last administered on 05/01/17 09:31; Admin Dose 1 TAB; Start 04/24/17 at 09:00 Salmeterol Xinafoate/ Fluticasone (Advair 500/50 Diskus) 1 inh BID INH Last administered on 05/01/17 09:30; Admin Dose 1 INH; Start 04/24/17 at 09:00 Acetaminophen/ Hydrocodone Bitart ([place] (5/325)) 1 tab Q6H PRN PO PAIN Last administered on 04/29/17 20:43; Admin Dose 1 TAB; Start 04/23/17 at 22:30 Isosorbide Mononitrate (Imdur) 60 mg BID PO Last administered on 05/01/17 09:32 ; Admin Dose 60 MG; Start 04/24/17 at 09:00 Magnesium Hydroxide (Milk Of Mag) 30 ml DAILY PRN PO CONSTIPATION; Start at 22:30 Metoprolol Tartrate (Lopressor) 25 mg BID PO Last administered on 05/01/17 09: 32; Admin Dose 25 MG; Start 04/24/17 at 09:00 Multivitamins/ Minerals (Theragran-M) 1 tab DAILY PO Last administered on 09:32; Admin Dose 1 TAB; Start 04/24/17 at 09:00 Nitroglycerin (Nitroglycerin (Sl Tab) 0.4 Mg) 1 tab Q5M PRN SL CHEST PAIN; Start 04/23/17 at 22:30 Acetaminophen (Tylenol Tab) 650 mg Q6H PRN PO PAIN AND OR ELEVATED TEMP Last administered on 05/01/17 06:14; Admin Dose 650 MG; Start 04/23/17 at 22:30 Atorvastatin Calcium (Lipitor) 10 mg DAILY@21 PO Last administered on 04/30/17 20:38; Admin Dose 10 MG; Start 04/24/17 at 21:00 Cilostazol (Pletal) 50 mg BID PO Last administered on 05/01/17 09:31; Admin Dose 50 MG; Start 04/24/17 at 09:00 Docusate Sodium (Colace) 100 mg Q12H PRN PO CONSTIPATION; Start 04/23/17 at 22: 30 Enoxaparin Sodium (Lovenox) 40 mg DAILY SC Last administered on 05/01/17 09:29 ; Admin Dose 40 MG; Start 04/24/17 at 09:00 Fish Oil (Fish Oil) 1,000 mg DAILY PO Last administered on 05/01/17 09:31; Admin Dose 1,000 MG; Start 04/24/17 at 09:00 Furosemide (Lasix) 20 mg DAILY@06 PO Last administered on 05/01/17 06:15; Admin Dose 20 MG; Start 04/24/17 at 06:00 Docusate Sodium (Colace) 100 mg BID PO Last administered on 05/01/17 09:32; Admin Dose 100 MG; Start 04/24/17 at 09:00 Senna (Senokot) 1 tab HS PO Last administered on 04/30/17 20:38; Admin Dose 1 TAB; Start 04/24/17 at 21:00 Bisacodyl (Dulcolax Supp) 10 mg DAILY PRN [place] CONSTIPATION; Start 04/24/17 at 00: 00 Lactulose (Enulose) 20 gm DAILY PRN PO CONSTIPATION Last administered on 14:53; Admin Dose 20 GM; Start 04/24/17 at 00:00 Guaifenesin (Robitussin Liquid Cup) 100 mg Q6H PRN PO COUGH; Start 04/24/17 at 14:00 Nitrofurantoin Macrocrystals (Macrobid) 100 mg BID PO Last administered on 09:31; Admin Dose 100 MG; Start 04/26/17 at 14:30; Stop 05/03/17 at 14:29 Ondansetron HCl (Zofran Tab) 8 mg Q6H PRN PO NAUSEA AND/OR VOMITING Last administered on 9/7/17at 18:00; Admin Dose 8 MG; Start 04/30/17 at 17:30 Assessment/Plan Additional Assessment/Plan Rehab- Blunt head trauma with loss of consciousness, status post fall; Right shoulder acute tendonitis; R LE contusion; Left knee effusion Continue rehab treatment activities Acute pain syndrome-improving, add lidoderm for right shoulder Hypertension. COPD. RACHEL COLUNGA MD May 01, 2017 10:35
[2017-05-01] MEDS: LIDOCAINE 5% PATCH TD SCH (12:38)
[2017-05-01 14:00] VITALS: BP 102/52; RESP 18
--- NOTE | 2017-05-01 14:54 | CONS ---
Date/Time of Note Date/Time of Note DATE: 05/01/17 TIME: 14:53 Consult Date/Type/Reason Admit Date/Time Apr 23, 2017 at 21:07 Type of Consultation: Internal medicine Subjective no significant changes. Patient remains comfortable Objective Vital Signs Date Time Temp Pulse Resp B/P Pulse Ox O2 Delivery O2 Flow Rate FiO2 05/01/17 08:00 Nasal Cannula 2.0 05/01/17 07:30 98.4 75 20 125/58 99 Intake and Output 04/30/17 04/30/17 05/01/17 14:59 22:59 06:59 Intake Total 420 ml 550 ml Balance 420 ml 550 ml Exam GENERAL: Chronically ill-appearing lady comfortable at rest kyphoscoliosis VITAL SIGNS: per chart NECK: Supple. No JVD or lymphadenopathy. CARDIAC EXAM: S1, S2. No added sounds or murmurs. CHEST: Diminished air entry both lung floyd ABDOMEN: Soft, nontender. No guarding or rebound. EXTREMITIES: No cyanosis, clubbing or edema. NEUROLOGIC: Generalized weakness. No focal deficits. Results/Medications Result Diagram: 05/01/1762405/01/1725 Results 24 hrs Laboratory Tests Test 05/01/17 06:25 White Blood Count 8.1 Red Blood Count 4.70 Hemoglobin 11.2 L Hematocrit 35.7 L Mean Corpuscular Volume 76.0 L Mean Corpuscular Hemoglobin 23.8 L Mean Corpuscular Hemoglobin Concent 31.4 L Red Cell Distribution Width 19.0 H Platelet Count 287 # Mean Platelet Volume 9.6 Neutrophils % 70.4 Lymphocytes % 14.0 L Monocytes % 11.5 H Eosinophils % 3.2 Basophils % 0.5 Nucleated Red Blood Cells % 0.0 Neutrophils # (Manual) 5.7 Lymphocytes # 1.1 Monocytes # 0.9 Eosinophils # 0.3 Basophils # 0.0 Nucleated Red Blood Cells # 0.0 Sodium Level 129 L Potassium Level 4.7 Chloride Level 86 L Carbon Dioxide Level 37 H Anion Gap 11 Blood Urea Nitrogen 24 H Creatinine 0.64 Glucose Level 102 Calcium Level 9.5 Medications Current Medications Tiotropium [place] (Spiriva) 1 inh DAILY INH Last administered on 05/01/17t 09: 30; Admin Dose 1 INH; Start 04/24/17 at 09:00 Tramadol HCl (Ultram) 50 mg Q6H PRN PO PAIN Last administered on 04/30/17 15:39 ; Admin Dose 50 MG; Start 04/23/17 at 22:30 Ursodiol (Lit) 250 mg BID PO Last administered on 05/01/17 09:31; Admin Dose 250 MG; Start 04/24/17 at 09:00 Vitamin B Complex/ Vitamin C (Berocca) 1 cap DAILY PO Last administered on 09:31; Admin Dose 1 CAP; Start 04/24/17 at 09:00 Pantoprazole (Protonix Tab) 40 mg DAILY@06 PO Last administered on 05/01/17 06: 14; Admin Dose 40 MG; Start 04/24/17 at 06:00 Ranolazine (Ranexa) 500 mg DAILY PO Last administered on 05/01/17 09:31; Admin Dose 500 MG; Start 04/24/17 at 09:00 Calcium/Vitamin D (Oyster Shell/ Vit-D (500/200)) 1 tab BID PO Last administered on 05/01/17 09:31; Admin Dose 1 TAB; Start 04/24/17 at 09:00 Salmeterol Xinafoate/ Fluticasone (Advair 500/50 Diskus) 1 inh BID INH Last administered on 05/01/17 09:30; Admin Dose 1 INH; Start 04/24/17 at 09:00 Acetaminophen/ Hydrocodone Bitart ([place] (5/325)) 1 tab Q6H PRN PO PAIN Last administered on 04/29/17 20:43; Admin Dose 1 TAB; Start 04/23/17 at 22:30 Isosorbide Mononitrate (Imdur) 60 mg BID PO Last administered on 05/01/17 09:32 ; Admin Dose 60 MG; Start 04/24/17 at 09:00 Magnesium Hydroxide (Milk Of Mag) 30 ml DAILY PRN PO CONSTIPATION; Start at 22:30 Metoprolol Tartrate (Lopressor) 25 mg BID PO Last administered on 05/01/17 09: 32; Admin Dose 25 MG; Start 04/24/17 at 09:00 Multivitamins/ Minerals (Theragran-M) 1 tab DAILY PO Last administered on 09:32; Admin Dose 1 TAB; Start 04/24/17 at 09:00 Nitroglycerin (Nitroglycerin (Sl Tab) 0.4 Mg) 1 tab Q5M PRN SL CHEST PAIN; Start 04/23/17 at 22:30 Acetaminophen (Tylenol Tab) 650 mg Q6H PRN PO PAIN AND OR ELEVATED TEMP Last administered on 05/01/17 06:14; Admin Dose 650 MG; Start 04/23/17 at 22:30 Atorvastatin Calcium (Lipitor) 10 mg DAILY@21 PO Last administered on 04/30/17 20:38; Admin Dose 10 MG; Start 04/24/17 at 21:00 Cilostazol (Pletal) 50 mg BID PO Last administered on 05/01/17 09:31; Admin Dose 50 MG; Start 04/24/17 at 09:00 Docusate Sodium (Colace) 100 mg Q12H PRN PO CONSTIPATION; Start 04/23/17 at 22: 30 Enoxaparin Sodium (Lovenox) 40 mg DAILY SC Last administered on 05/01/17 09:29 ; Admin Dose 40 MG; Start 04/24/17 at 09:00 Fish Oil (Fish Oil) 1,000 mg DAILY PO Last administered on 05/01/17 09:31; Admin Dose 1,000 MG; Start 04/24/17 at 09:00 Furosemide (Lasix) 20 mg DAILY@06 PO Last administered on 05/01/17 06:15; Admin Dose 20 MG; Start 04/24/17 at 06:00 Docusate Sodium (Colace) 100 mg BID PO Last administered on 05/01/17 09:32; Admin Dose 100 MG; Start 04/24/17 at 09:00 Senna (Senokot) 1 tab HS PO Last administered on 04/30/17 20:38; Admin Dose 1 TAB; Start 04/24/17 at 21:00 Bisacodyl (Dulcolax Supp) 10 mg DAILY PRN [place] CONSTIPATION; Start 04/24/17 at 00: 00 Lactulose (Enulose) 20 gm DAILY PRN PO CONSTIPATION Last administered on 14:53; Admin Dose 20 GM; Start 04/24/17 at 00:00 Guaifenesin (Robitussin Liquid Cup) 100 mg Q6H PRN PO COUGH; Start 04/24/17 at 14:00 Nitrofurantoin Macrocrystals (Macrobid) 100 mg BID PO Last administered on 09:31; Admin Dose 100 MG; Start 04/26/17 at 14:30; Stop 05/03/17 at 14:29 Ondansetron HCl (Zofran Tab) 8 mg Q6H PRN PO NAUSEA AND/OR VOMITING Last administered on 04/30/17 18:00; Admin Dose 8 MG; Start 04/30/17 at 17:30 Lidocaine (Lidoderm) 1 patch DAILY TD Last administered on 05/01/17 12:38; Admin Dose 1 PATCH; Start 05/01/17 at 12:30 Assessment/Plan Chief Complaint/Hosp Course Assessment 1. Mechanical fall with shoulder injury 2. History of restrictive lung disease secondary to kyphoscoliosis, chronic hypoxemic respiratory failure 3. e coli uti Plan 1. Continue PT 2. Continue pain control 3. nitrofurantoin for uti. 4. Decrease pain meds as tolerated. ` Problems: BETZY OLIVO MD, [facility] May 01, 2017 14:54
[2017-05-01 20:00] VITALS: BP 105/58; RESP 18
[2017-05-01] MEDS: SENNA TAB PO SCH (20:18)
[2017-05-01] MEDS: ATORVASTATIN 10 MG TAB PO SCH (20:18)
[2017-05-02 02:00] VITALS: BP 120/62; RESP 18
[2017-05-02] MEDS: PANTOPRAZOLE (EC) 40 MG TAB PO SCH (05:48)
[2017-05-02] MEDS: FUROSEMIDE 20 MG TAB PO SCH (05:48)
[2017-05-02 08:00] VITALS: BP 151/65; RESP 18
[2017-05-02] MEDS: LIDOCAINE 5% PATCH TD SCH (09:55)
[2017-05-02] MEDS: SALMETEROL/FLUTICASONE 500/50 INHA INH SCH ×2 (09:55→20:27)
[2017-05-02] MEDS: ENOXAPARIN 40 MG/0.4 ML SYG SC SCH (09:55)
[2017-05-02] MEDS: VITAMIN B COMPLEX/VIT C CAP PO SCH (09:56)
[2017-05-02] MEDS: NITROFURANTOIN (SR) 100 MG CAP PO SCH ×2 (09:56→20:25)
[2017-05-02] MEDS: CALCIUM/VITAMIN D (500/200) TAB PO SCH ×2 (09:56→22:06)
[2017-05-02] MEDS: RANOLAZINE (SR) 500 MG TAB PO SCH (09:56)
[2017-05-02] MEDS: CILOSTAZOL 100 MG TAB PO SCH ×2 (09:56→20:25)
[2017-05-02] MEDS: DOCUSATE SODIUM 100 MG CAP PO SCH ×2 (09:56→20:25)
[2017-05-02] MEDS: MULTIVITAMINS/MINERALS TAB PO SCH (09:56)
[2017-05-02] MEDS: URSODIOL 250 MG TAB PO SCH ×2 (09:56→20:25)
[2017-05-02] MEDS: SUCRALFATE (100 MG/ML) 10ML CUP PO SCH ×4 (09:56→20:27)
[2017-05-02] MEDS: TIOTROPIUM 18 MCG CAPSULE INHA DEV INH SCH (09:56)
[2017-05-02] MEDS: ISOSORBIDE MONONITRATE(SR)60 MG TAB PO SCH ×2 (09:57→20:27)
[2017-05-02] MEDS: FISH OIL 1,000 MG CAP PO SCH (09:57)
[2017-05-02] MEDS: METOPROLOL 25 MG TAB PO SCH ×2 (09:57→20:26)
[2017-05-02] MEDS: traMADol 50 MG TAB PO PRN (09:59)
--- NOTE | 2017-05-02 11:57 | CONS ---
Date/Time of Note Date/Time of Note DATE: 05/02/17 TIME: 11:56 Consult Date/Type/Reason Admit Date/Time Apr 23, 2017 at 21:07 Type of Consultation: Internal medicine Subjective feeling better today Objective Lungs clear abdomen soft Contact-guard assist ambulation Vital Signs Date Time Temp Pulse Resp B/P Pulse Ox O2 Delivery O2 Flow Rate FiO2 05/02/17 08:00 98.4 72 18 151/65 95 05/01/17 20:00 Nasal Cannula 2.0 Intake and Output 05/01/17 05/01/17 05/02/17 15:00 23:00 07:00 Intake Total 960 ml 600 ml Balance 960 ml 600 ml Results/Medications Result Diagram: 05/01/1762405/01/17624 Medications Current Medications Tiotropium [place] (Spiriva) 1 inh DAILY INH Last administered on 05/02/17 09: 56; Admin Dose 1 INH; Start 04/24/17 at 09:00 Tramadol HCl (Ultram) 50 mg Q6H PRN PO PAIN Last administered on 05/02/17 09:59 ; Admin Dose 50 MG; Start 04/23/17 at 22:30 Ursodiol (Lit) 250 mg BID PO Last administered on 05/02/17 09:56; Admin Dose 250 MG; Start 04/24/17 at 09:00 Vitamin B Complex/ Vitamin C (Berocca) 1 cap DAILY PO Last administered on 09:56; Admin Dose 1 CAP; Start 04/24/17 at 09:00 Pantoprazole (Protonix Tab) 40 mg DAILY@06 PO Last administered on 05/02/17 05: 48; Admin Dose 40 MG; Start 04/24/17 at 06:00 Ranolazine (Ranexa) 500 mg DAILY PO Last administered on 05/02/17 09:56; Admin Dose 500 MG; Start 04/24/17 at 09:00 Calcium/Vitamin D (Oyster Shell/ Vit-D (500/200)) 1 tab BID PO Last administered on 05/02/17 09:56; Admin Dose 1 TAB; Start 04/24/17 at 09:00 Salmeterol Xinafoate/ Fluticasone (Advair 500/50 Diskus) 1 inh BID INH Last administered on 05/02/17 09:55; Admin Dose 1 INH; Start 04/24/17 at 09:00 Acetaminophen/ Hydrocodone Bitart ([place] (5/325)) 1 tab Q6H PRN PO PAIN Last administered on 04/29/17 20:43; Admin Dose 1 TAB; Start 04/23/17 at 22:30 Isosorbide Mononitrate (Imdur) 60 mg BID PO Last administered on 05/02/17 09:57 ; Admin Dose 60 MG; Start 04/24/17 at 09:00 Magnesium Hydroxide (Milk Of Mag) 30 ml DAILY PRN PO CONSTIPATION Last administered on 05/01/17 18:17; Admin Dose 30 ML; Start 04/23/17 at 22:30 Metoprolol Tartrate (Lopressor) 25 mg BID PO Last administered on 05/02/17 09: 57; Admin Dose 25 MG; Start 04/24/17 at 09:00 Multivitamins/ Minerals (Theragran-M) 1 tab DAILY PO Last administered on 09:56; Admin Dose 1 TAB; Start 04/24/17 at 09:00 Nitroglycerin (Nitroglycerin (Sl Tab) 0.4 Mg) 1 tab Q5M PRN SL CHEST PAIN; Start 04/23/17 at 22:30 Acetaminophen (Tylenol Tab) 650 mg Q6H PRN PO PAIN AND OR ELEVATED TEMP Last administered on 05/01/17 06:14; Admin Dose 650 MG; Start 04/23/17 at 22:30 Atorvastatin Calcium (Lipitor) 10 mg DAILY@21 PO Last administered on 05/01/17 20:18; Admin Dose 10 MG; Start 04/24/17 at 21:00 Cilostazol (Pletal) 50 mg BID PO Last administered on 05/02/17 09:56; Admin Dose 50 MG; Start 04/24/17 at 09:00 Docusate Sodium (Colace) 100 mg Q12H PRN PO CONSTIPATION; Start 04/23/17 at 22: 30 Enoxaparin Sodium (Lovenox) 40 mg DAILY SC Last administered on 05/02/17 09:55 ; Admin Dose 40 MG; Start 04/24/17 at 09:00 Fish Oil (Fish Oil) 1,000 mg DAILY PO Last administered on 05/02/17 09:57; Admin Dose 1,000 MG; Start 04/24/17 at 09:00 Furosemide (Lasix) 20 mg DAILY@06 PO Last administered on 05/02/17 05:48; Admin Dose 20 MG; Start 04/24/17 at 06:00 Docusate Sodium (Colace) 100 mg BID PO Last administered on 05/02/17 09:56; Admin Dose 100 MG; Start 04/24/17 at 09:00 Senna (Senokot) 1 tab HS PO Last administered on 05/01/17 20:18; Admin Dose 1 TAB; Start 04/24/17 at 21:00 Bisacodyl (Dulcolax Supp) 10 mg DAILY PRN [place] CONSTIPATION; Start 04/24/17 at 00: 00 Lactulose (Enulose) 20 gm DAILY PRN PO CONSTIPATION Last administered on 14:53; Admin Dose 20 GM; Start 04/24/17 at 00:00 Guaifenesin (Robitussin Liquid Cup) 100 mg Q6H PRN PO COUGH; Start 04/24/17 at 14:00 Nitrofurantoin Macrocrystals (Macrobid) 100 mg BID PO Last administered on 09:56; Admin Dose 100 MG; Start 04/26/17 at 14:30; Stop 05/03/17 at 14:29 Ondansetron HCl (Zofran Tab) 8 mg Q6H PRN PO NAUSEA AND/OR VOMITING Last administered on 04/30/17 18:00; Admin Dose 8 MG; Start 04/30/17 at 17:30 Lidocaine (Lidoderm) 1 patch DAILY TD Last administered on 05/02/17 09:55; Admin Dose 1 PATCH; Start 05/01/17 at 12:30 Assessment/Plan Additional Assessment/Plan Rehab- Blunt head trauma with loss of consciousness, status post fall; Right shoulder acute tendonitis; R LE contusion; Left knee effusion Continue rehab treatment plan Acute pain syndrome-improving, add lidoderm for right shoulder Hypertension. COPD. RACHEL COLUNGA MD May 02, 2017 11:57
--- NOTE | 2017-05-02 12:03 | CONS ---
Date/Time of Note Date/Time of Note DATE: 05/02/17 TIME: 12:02 Consult Date/Type/Reason Admit Date/Time Apr 23, 2017 at 21:07 Type of Consultation: Internal medicine Subjective Comfortable, no events. Objective Vital Signs Date Time Temp Pulse Resp B/P Pulse Ox O2 Delivery O2 Flow Rate FiO2 05/02/17 08:00 98.4 72 18 151/65 95 05/01/17 20:00 Nasal Cannula 2.0 Intake and Output 05/01/17 05/01/17 05/02/17 15:00 23:00 07:00 Intake Total 960 ml 600 ml Balance 960 ml 600 ml Exam GENERAL: Chronically ill-appearing lady comfortable at rest kyphoscoliosis VITAL SIGNS: per chart NECK: Supple. No JVD or lymphadenopathy. CARDIAC EXAM: S1, S2. No added sounds or murmurs. CHEST: Diminished air entry both lung floyd ABDOMEN: Soft, nontender. No guarding or rebound. EXTREMITIES: No cyanosis, clubbing or edema. NEUROLOGIC: Generalized weakness. No focal deficits. Results/Medications Result Diagram: 05/01/1762405/01/17624 Medications Current Medications Tiotropium [place] (Spiriva) 1 inh DAILY INH Last administered on 05/02/17 09: 56; Admin Dose 1 INH; Start 04/24/17 at 09:00 Tramadol HCl (Ultram) 50 mg Q6H PRN PO PAIN Last administered on 05/02/17 09:59 ; Admin Dose 50 MG; Start 04/23/17 at 22:30 Ursodiol (Lit) 250 mg BID PO Last administered on 05/02/17 09:56; Admin Dose 250 MG; Start 04/24/17 at 09:00 Vitamin B Complex/ Vitamin C (Berocca) 1 cap DAILY PO Last administered on 09:56; Admin Dose 1 CAP; Start 04/24/17 at 09:00 Pantoprazole (Protonix Tab) 40 mg DAILY@06 PO Last administered on 05/02/17 05: 48; Admin Dose 40 MG; Start 04/24/17 at 06:00 Ranolazine (Ranexa) 500 mg DAILY PO Last administered on 05/02/17 09:56; Admin Dose 500 MG; Start 04/24/17 at 09:00 Calcium/Vitamin D (Oyster Shell/ Vit-D (500/200)) 1 tab BID PO Last administered on 05/02/17 09:56; Admin Dose 1 TAB; Start 04/24/17 at 09:00 Salmeterol Xinafoate/ Fluticasone (Advair 500/50 Diskus) 1 inh BID INH Last administered on 05/02/17 09:55; Admin Dose 1 INH; Start 04/24/17 at 09:00 Acetaminophen/ Hydrocodone Bitart ([place] (5/325)) 1 tab Q6H PRN PO PAIN Last administered on 04/29/17 20:43; Admin Dose 1 TAB; Start 04/23/17 at 22:30 Isosorbide Mononitrate (Imdur) 60 mg BID PO Last administered on 05/02/17 09:57 ; Admin Dose 60 MG; Start 04/24/17 at 09:00 Magnesium Hydroxide (Milk Of Mag) 30 ml DAILY PRN PO CONSTIPATION Last administered on 05/01/17 18:17; Admin Dose 30 ML; Start 04/23/17 at 22:30 Metoprolol Tartrate (Lopressor) 25 mg BID PO Last administered on 05/02/17 09: 57; Admin Dose 25 MG; Start 04/24/17 at 09:00 Multivitamins/ Minerals (Theragran-M) 1 tab DAILY PO Last administered on 09:56; Admin Dose 1 TAB; Start 04/24/17 at 09:00 Nitroglycerin (Nitroglycerin (Sl Tab) 0.4 Mg) 1 tab Q5M PRN SL CHEST PAIN; Start 04/23/17 at 22:30 Acetaminophen (Tylenol Tab) 650 mg Q6H PRN PO PAIN AND OR ELEVATED TEMP Last administered on 05/01/17 06:14; Admin Dose 650 MG; Start 04/23/17 at 22:30 Atorvastatin Calcium (Lipitor) 10 mg DAILY@21 PO Last administered on 05/01/17 20:18; Admin Dose 10 MG; Start 04/24/17 at 21:00 Cilostazol (Pletal) 50 mg BID PO Last administered on 05/02/17 09:56; Admin Dose 50 MG; Start 04/24/17 at 09:00 Docusate Sodium (Colace) 100 mg Q12H PRN PO CONSTIPATION; Start 04/23/17 at 22: 30 Enoxaparin Sodium (Lovenox) 40 mg DAILY SC Last administered on 05/02/17 09:55 ; Admin Dose 40 MG; Start 04/24/17 at 09:00 Fish Oil (Fish Oil) 1,000 mg DAILY PO Last administered on 05/02/17 09:57; Admin Dose 1,000 MG; Start 04/24/17 at 09:00 Furosemide (Lasix) 20 mg DAILY@06 PO Last administered on 05/02/17 05:48; Admin Dose 20 MG; Start 04/24/17 at 06:00 Docusate Sodium (Colace) 100 mg BID PO Last administered on 05/02/17 09:56; Admin Dose 100 MG; Start 04/24/17 at 09:00 Senna (Senokot) 1 tab HS PO Last administered on 05/01/17 20:18; Admin Dose 1 TAB; Start 04/24/17 at 21:00 Bisacodyl (Dulcolax Supp) 10 mg DAILY PRN [place] CONSTIPATION; Start 04/24/17 at 00: 00 Lactulose (Enulose) 20 gm DAILY PRN PO CONSTIPATION Last administered on 14:53; Admin Dose 20 GM; Start 04/24/17 at 00:00 Guaifenesin (Robitussin Liquid Cup) 100 mg Q6H PRN PO COUGH; Start 04/24/17 at 14:00 Nitrofurantoin Macrocrystals (Macrobid) 100 mg BID PO Last administered on 09:56; Admin Dose 100 MG; Start 04/26/17 at 14:30; Stop 05/03/17 at 14:29 Ondansetron HCl (Zofran Tab) 8 mg Q6H PRN PO NAUSEA AND/OR VOMITING Last administered on 04/30/17 18:00; Admin Dose 8 MG; Start 04/30/17 at 17:30 Lidocaine (Lidoderm) 1 patch DAILY TD Last administered on 05/02/17 09:55; Admin Dose 1 PATCH; Start 05/01/17 at 12:30 Assessment/Plan Chief Complaint/Hosp Course Assessment 1. Mechanical fall with shoulder injury 2. History of restrictive lung disease secondary to kyphoscoliosis, chronic hypoxemic respiratory failure 3. e coli uti s/ abx. Plan 1. Continue PT 2. Continue pain control Problems: BET[facility]IV[facility], [facility] May 02, 2017 12:03
[2017-05-02] MEDS: HYDROCODONE/APAP (5/325) TAB PO PRN (17:47)
[2017-05-02 20:00] VITALS: BP 137/68; RESP 18
[2017-05-02] MEDS: ACETAMINOPHEN 325 MG TAB PO PRN (20:24)
[2017-05-02] MEDS: SENNA TAB PO SCH (20:25)
[2017-05-02] MEDS: ATORVASTATIN 10 MG TAB PO SCH (20:26)
[2017-05-03 02:00] VITALS: BP 134/67; RESP 18
[2017-05-03] MEDS: SUCRALFATE (100 MG/ML) 10ML CUP PO SCH ×4 (06:44→22:13)
[2017-05-03] MEDS: PANTOPRAZOLE (EC) 40 MG TAB PO SCH (06:44)
[2017-05-03] MEDS: FUROSEMIDE 20 MG TAB PO SCH (06:49)
[2017-05-03] MEDS: ENOXAPARIN 40 MG/0.4 ML SYG SC SCH (08:30)
[2017-05-03] MEDS: CILOSTAZOL 100 MG TAB PO SCH ×2 (08:32→22:14)
[2017-05-03] MEDS: FISH OIL 1,000 MG CAP PO SCH (08:32)
[2017-05-03] MEDS: URSODIOL 250 MG TAB PO SCH ×2 (08:32→22:30)
[2017-05-03] MEDS: VITAMIN B COMPLEX/VIT C CAP PO SCH (08:32)
[2017-05-03] MEDS: RANOLAZINE (SR) 500 MG TAB PO SCH (08:32)
[2017-05-03] MEDS: MULTIVITAMINS/MINERALS TAB PO SCH (08:33)
[2017-05-03] MEDS: TIOTROPIUM 18 MCG CAPSULE INHA DEV INH SCH (08:33)
[2017-05-03] MEDS: CALCIUM/VITAMIN D (500/200) TAB PO SCH ×2 (08:33→22:13)
[2017-05-03] MEDS: DOCUSATE SODIUM 100 MG CAP PO SCH ×2 (08:33→22:19)
[2017-05-03] MEDS: ISOSORBIDE MONONITRATE(SR)60 MG TAB PO SCH ×2 (08:34→22:19)
[2017-05-03] MEDS: METOPROLOL 25 MG TAB PO SCH ×2 (08:34→22:22)
[2017-05-03] MEDS: SALMETEROL/FLUTICASONE 500/50 INHA INH SCH ×2 (09:26→22:13)
[2017-05-03] MEDS: LIDOCAINE 5% PATCH TD SCH (09:26)
[2017-05-03] MEDS: NITROFURANTOIN (SR) 100 MG CAP PO SCH (09:27)
[2017-05-03] MEDS: ACETAMINOPHEN 325 MG TAB PO PRN (14:45)
[2017-05-03 19:43] VITALS: BP 125/62; RESP 18
[2017-05-03] MEDS: SENNA TAB PO SCH (22:13)
[2017-05-03] MEDS: ATORVASTATIN 10 MG TAB PO SCH (22:19)
[2017-05-03 22:22] VITALS: BP 123/59; PULSE 76; RESP 20
[2017-05-04 02:00] VITALS: BP 128/65; RESP 18
[2017-05-04] MEDS: PANTOPRAZOLE (EC) 40 MG TAB PO SCH (06:30)
[2017-05-04] MEDS: FUROSEMIDE 20 MG TAB PO SCH (06:31)
[2017-05-04] MEDS: SUCRALFATE (100 MG/ML) 10ML CUP PO SCH ×4 (06:33→20:42)
[2017-05-04 07:30] VITALS: BP 123/59; RESP 20
[2017-05-04] MEDS: LIDOCAINE 5% PATCH TD SCH (08:59)
[2017-05-04] MEDS: ENOXAPARIN 40 MG/0.4 ML SYG SC SCH (08:59)
[2017-05-04] MEDS: RANOLAZINE (SR) 500 MG TAB PO SCH (09:00)
[2017-05-04] MEDS: MULTIVITAMINS/MINERALS TAB PO SCH (09:00)
[2017-05-04] MEDS: URSODIOL 250 MG TAB PO SCH ×2 (09:00→20:42)
[2017-05-04] MEDS: VITAMIN B COMPLEX/VIT C CAP PO SCH (09:00)
[2017-05-04] MEDS: DOCUSATE SODIUM 100 MG CAP PO SCH ×2 (09:01→20:42)
[2017-05-04] MEDS: FISH OIL 1,000 MG CAP PO SCH (09:01)
[2017-05-04] MEDS: METOPROLOL 25 MG TAB PO SCH ×2 (09:02→20:43)
[2017-05-04] MEDS: CALCIUM/VITAMIN D (500/200) TAB PO SCH ×2 (09:02→20:42)
[2017-05-04] MEDS: ISOSORBIDE MONONITRATE(SR)60 MG TAB PO SCH ×2 (09:02→20:43)
[2017-05-04] MEDS: CILOSTAZOL 100 MG TAB PO SCH ×2 (09:03→20:42)
[2017-05-04] MEDS: TIOTROPIUM 18 MCG CAPSULE INHA DEV INH SCH (09:35)
[2017-05-04] MEDS: SALMETEROL/FLUTICASONE 500/50 INHA INH SCH ×2 (09:35→20:42)
--- NOTE | 2017-05-04 11:57 | CONS ---
Date/Time of Note Date/Time of Note DATE: 05/04/17 TIME: 11:54 Consult Date/Type/Reason Admit Date/Time Apr 23, 2017 at 21:07 Type of Consultation: Internal medicine Objective Vital Signs Date Time Temp Pulse Resp B/P Pulse Ox O2 Delivery O2 Flow Rate FiO2 05/04/17 07:30 99.2 20 20 123/59 99 05/03/17 22:22 Nasal Cannula 2.0 Intake and Output 05/03/17 05/03/17 05/04/17 15:00 23:00 07:00 Intake Total 480 ml Balance 480 ml INTERDISCIPLINARY TEAM CONFERENCE BOWEL- Cont BLADDER-Cont SKIN- improving sacral DTI OT- DRESSING-cga/min BATHING-cga/min TOILETING-min PT- BED MOBILITY-sba TRANSFERS-sba AMBULATION-sba 150 SPEECH- COGNITION-min A/P- Interdisciplinary team conference held today. Please see interdisciplinary sheet. Working toward d.c. on 05/08 with post discharge follow up of physical therapy, occupational therapy. Results/Medications Result Diagram: 05/01/1762405/01/17 0625 Medications Current Medications Tiotropium [place] (Spiriva) 1 inh DAILY INH Last administered on 05/04/17 09: 35; Admin Dose 1 INH; Start 04/24/17 at 09:00 Tramadol HCl (Ultram) 50 mg Q6H PRN PO PAIN Last administered on 05/02/17 09:59 ; Admin Dose 50 MG; Start 04/23/17 at 22:30 Ursodiol (Lit) 250 mg BID PO Last administered on 05/04/17 09:00; Admin Dose 250 MG; Start 04/24/17 at 09:00 Vitamin B Complex/ Vitamin C (Berocca) 1 cap DAILY PO Last administered on 05/04 09:00; Admin Dose 1 CAP; Start 04/24/17 at 09:00 Pantoprazole (Protonix Tab) 40 mg DAILY@06 PO Last administered on 05/04/17 06 :30; Admin Dose 40 MG; Start 04/24/17 at 06:00 Ranolazine (Ranexa) 500 mg DAILY PO Last administered on 05/04/17 09:00; Admin Dose 500 MG; Start 04/24/17 at 09:00 Calcium/Vitamin D (Oyster Shell/ Vit-D (500/200)) 1 tab BID PO Last administered on 05/04/17 09:02; Admin Dose 1 TAB; Start 04/24/17 at 09:00 Salmeterol Xinafoate/ Fluticasone (Advair 500/50 Diskus) 1 inh BID INH Last administered on 05/04/17 09:35; Admin Dose 1 INH; Start 04/24/17 at 09:00 Acetaminophen/ Hydrocodone Bitart ([place] (5/325)) 1 tab Q6H PRN PO PAIN Last administered on 05/02/17 17:47; Admin Dose 1 TAB; Start 04/23/17 at 22:30 Isosorbide Mononitrate (Imdur) 60 mg BID PO Last administered on 05/04/17 09: 02; Admin Dose 60 MG; Start 04/24/17 at 09:00 Magnesium Hydroxide (Milk Of Mag) 30 ml DAILY PRN PO CONSTIPATION Last administered on 05/01/17 18:17; Admin Dose 30 ML; Start 04/23/17 at 22:30 Metoprolol Tartrate (Lopressor) 25 mg BID PO Last administered on 05/04/17 09: 02; Admin Dose 25 MG; Start 04/24/17 at 09:00 Multivitamins/ Minerals (Theragran-M) 1 tab DAILY PO Last administered on 09:00; Admin Dose 1 TAB; Start 04/24/17 at 09:00 Nitroglycerin (Nitroglycerin (Sl Tab) 0.4 Mg) 1 tab Q5M PRN SL CHEST PAIN; Start 04/23/17 at 22:30 Acetaminophen (Tylenol Tab) 650 mg Q6H PRN PO PAIN AND OR ELEVATED TEMP Last administered on 05/03/17 14:45; Admin Dose 650 MG; Start 04/23/17 at 22:30 Atorvastatin Calcium (Lipitor) 10 mg DAILY@21 PO Last administered on 22:19; Admin Dose 10 MG; Start 04/24/17 at 21:00 Cilostazol (Pletal) 50 mg BID PO Last administered on 05/04/17 09:03; Admin Dose 50 MG; Start 04/24/17 at 09:00 Docusate Sodium (Colace) 100 mg Q12H PRN PO CONSTIPATION; Start 04/23/17 at 22: 30 Enoxaparin Sodium (Lovenox) 40 mg DAILY SC Last administered on 05/04/17 08:59 ; Admin Dose 40 MG; Start 04/24/17 at 09:00 Fish Oil (Fish Oil) 1,000 mg DAILY PO Last administered on 05/04/17 09:01; Admin Dose 1,000 MG; Start 04/24/17 at 09:00 Furosemide (Lasix) 20 mg DAILY@06 PO Last administered on 05/04/17 06:31; Admin Dose 20 MG; Start 04/24/17 at 06:00 Docusate Sodium (Colace) 100 mg BID PO Last administered on 05/04/17 09:01; Admin Dose 100 MG; Start 04/24/17 at 09:00 Senna (Senokot) 1 tab HS PO Last administered on 05/03/17 22:13; Admin Dose 1 TAB; Start 04/24/17 at 21:00 Bisacodyl (Dulcolax Supp) 10 mg DAILY PRN [place] CONSTIPATION; Start 04/24/17 at 00: 00 Lactulose (Enulose) 20 gm DAILY PRN PO CONSTIPATION Last administered on 14:53; Admin Dose 20 GM; Start 04/24/17 at 00:00 Guaifenesin (Robitussin Liquid Cup) 100 mg Q6H PRN PO COUGH; Start 04/24/17 at 14:00 Ondansetron HCl (Zofran Tab) 8 mg Q6H PRN PO NAUSEA AND/OR VOMITING Last administered on 04/30/17 18:00; Admin Dose 8 MG; Start 04/30/17 at 17:30 Lidocaine (Lidoderm) 1 patch DAILY TD Last administered on 05/04/17 08:59; Admin Dose 1 PATCH; Start 05/01/17 at 12:30 RACHEL COLUNGA MD May 04, 2017 11:57
--- NOTE | 2017-05-04 12:37 | CONS ---
Date/Time of Note Date/Time of Note DATE: 05/04/17 TIME: 12:36 Consult Date/Type/Reason Admit Date/Time Apr 23, 2017 at 21:07 Type of Consultation: Internal medicine Subjective Patient comfortable no new events. Objective Vital Signs Date Time Temp Pulse Resp B/P Pulse Ox O2 Delivery O2 Flow Rate FiO2 05/04/17 07:30 99.2 20 20 123/59 99 05/03/17 22:22 Nasal Cannula 2.0 Intake and Output 05/03/17 05/03/17 05/04/17 15:00 23:00 07:00 Intake Total 480 ml Balance 480 ml Exam GENERAL: Chronically ill-appearing lady comfortable at rest kyphoscoliosis VITAL SIGNS: per chart NECK: Supple. No JVD or lymphadenopathy. CARDIAC EXAM: S1, S2. No added sounds or murmurs. CHEST: Diminished air entry both lung floyd ABDOMEN: Soft, nontender. No guarding or rebound. EXTREMITIES: No cyanosis, clubbing or edema. NEUROLOGIC: Generalized weakness. No focal deficits. Results/Medications Result Diagram: 05/01/1762405/01/17624 Medications Current Medications Tiotropium [place] (Spiriva) 1 inh DAILY INH Last administered on 05/04/17 09: 35; Admin Dose 1 INH; Start 04/24/17 at 09:00 Tramadol HCl (Ultram) 50 mg Q6H PRN PO PAIN Last administered on 05/02/17 09:59 ; Admin Dose 50 MG; Start 04/23/17 at 22:30 Ursodiol (Lit) 250 mg BID PO Last administered on 05/04/17 09:00; Admin Dose 250 MG; Start 04/24/17 at 09:00 Vitamin B Complex/ Vitamin C (Berocca) 1 cap DAILY PO Last administered on 05/04 09:00; Admin Dose 1 CAP; Start 04/24/17 at 09:00 Pantoprazole (Protonix Tab) 40 mg DAILY@06 PO Last administered on 05/04/17 06 :30; Admin Dose 40 MG; Start 04/24/17 at 06:00 Ranolazine (Ranexa) 500 mg DAILY PO Last administered on 05/04/17 09:00; Admin Dose 500 MG; Start 04/24/17 at 09:00 Calcium/Vitamin D (Oyster Shell/ Vit-D (500/200)) 1 tab BID PO Last administered on 05/04/17 09:02; Admin Dose 1 TAB; Start 04/24/17 at 09:00 Salmeterol Xinafoate/ Fluticasone (Advair 500/50 Diskus) 1 inh BID INH Last administered on 05/04/17 09:35; Admin Dose 1 INH; Start 04/24/17 at 09:00 Acetaminophen/ Hydrocodone Bitart ([place] (5/325)) 1 tab Q6H PRN PO PAIN Last administered on 05/02/17 17:47; Admin Dose 1 TAB; Start 04/23/17 at 22:30 Isosorbide Mononitrate (Imdur) 60 mg BID PO Last administered on 05/04/17 09: 02; Admin Dose 60 MG; Start 04/24/17 at 09:00 Magnesium Hydroxide (Milk Of Mag) 30 ml DAILY PRN PO CONSTIPATION Last administered on 05/01/17 18:17; Admin Dose 30 ML; Start 04/23/17 at 22:30 Metoprolol Tartrate (Lopressor) 25 mg BID PO Last administered on 05/04/17 09: 02; Admin Dose 25 MG; Start 04/24/17 at 09:00 Multivitamins/ Minerals (Theragran-M) 1 tab DAILY PO Last administered on 09:00; Admin Dose 1 TAB; Start 04/24/17 at 09:00 Nitroglycerin (Nitroglycerin (Sl Tab) 0.4 Mg) 1 tab Q5M PRN SL CHEST PAIN; Start 04/23/17 at 22:30 Acetaminophen (Tylenol Tab) 650 mg Q6H PRN PO PAIN AND OR ELEVATED TEMP Last administered on 05/03/17 14:45; Admin Dose 650 MG; Start 04/23/17 at 22:30 Atorvastatin Calcium (Lipitor) 10 mg DAILY@21 PO Last administered on 22:19; Admin Dose 10 MG; Start 04/24/17 at 21:00 Cilostazol (Pletal) 50 mg BID PO Last administered on 05/04/17 09:03; Admin Dose 50 MG; Start 04/24/17 at 09:00 Docusate Sodium (Colace) 100 mg Q12H PRN PO CONSTIPATION; Start 04/23/17 at 22: 30 Enoxaparin Sodium (Lovenox) 40 mg DAILY SC Last administered on 05/04/17 08:59 ; Admin Dose 40 MG; Start 04/24/17 at 09:00 Fish Oil (Fish Oil) 1,000 mg DAILY PO Last administered on 05/04/17 09:01; Admin Dose 1,000 MG; Start 04/24/17 at 09:00 Furosemide (Lasix) 20 mg DAILY@06 PO Last administered on 05/04/17 06:31; Admin Dose 20 MG; Start 04/24/17 at 06:00 Docusate Sodium (Colace) 100 mg BID PO Last administered on 05/04/17 09:01; Admin Dose 100 MG; Start 04/24/17 at 09:00 Senna (Senokot) 1 tab HS PO Last administered on 05/03/17 22:13; Admin Dose 1 TAB; Start 04/24/17 at 21:00 Bisacodyl (Dulcolax Supp) 10 mg DAILY PRN [place] CONSTIPATION; Start 04/24/17 at 00: 00 Lactulose (Enulose) 20 gm DAILY PRN PO CONSTIPATION Last administered on 14:53; Admin Dose 20 GM; Start 04/24/17 at 00:00 Guaifenesin (Robitussin Liquid Cup) 100 mg Q6H PRN PO COUGH; Start 04/24/17 at 14:00 Ondansetron HCl (Zofran Tab) 8 mg Q6H PRN PO NAUSEA AND/OR VOMITING Last administered on 04/30/17 18:00; Admin Dose 8 MG; Start 04/30/17 at 17:30 Lidocaine (Lidoderm) 1 patch DAILY TD Last administered on 05/04/17 08:59; Admin Dose 1 PATCH; Start 05/01/17 at 12:30 Assessment/Plan Chief Complaint/Hosp Course Assessment 1. Mechanical fall with shoulder injury 2. History of restrictive lung disease secondary to kyphoscoliosis, chronic hypoxemic respiratory failure 3. e coli uti s/ abx. Plan 1. Continue PT 2. Continue pain control Problems: [facility]IV[facility], [facility] May 04, 2017 12:36
[2017-05-04 14:00] VITALS: BP 115/56; RESP 20
--- NOTE | 2017-05-04 15:53 | RADRPT ---
PROCEDURE: XR Chest. CLINICAL INDICATION: Shortness of breath. TECHNIQUE: Single frontal view. COMPARISON: 04/22/2017. FINDINGS: There is mild pulmonary scarring bilaterally, unchanged. The lungs are otherwise clear. The heart is enlarged. There is calcification in the aorta consistent with atherosclerosis. There is no pleural effusion or pneumothorax. There is thoracic scoliosis convex right superiorly and convex left inferiorly. IMPRESSION: 1. No change from 04/22/2017. RPTAT: QQ .Pratik Santana MD, Date Time Electronically viewed and signed by .Pratik Santana MD, MD on 05/04/2017 15:53 .R/
[2017-05-04 20:00] VITALS: BP 143/66; RESP 18
[2017-05-04] MEDS: ATORVASTATIN 10 MG TAB PO SCH (20:42)
[2017-05-04] MEDS: SENNA TAB PO SCH (20:42)
[2017-05-05 03:20] VITALS: BP 134/58; RESP 18
[2017-05-05] MEDS: FUROSEMIDE 20 MG TAB PO SCH (06:41)
[2017-05-05] MEDS: PANTOPRAZOLE (EC) 40 MG TAB PO SCH (06:41)
[2017-05-05] MEDS: SUCRALFATE (100 MG/ML) 10ML CUP PO SCH ×2 (06:41→12:41)
[2017-05-05 08:07] VITALS: BP 129/57; PULSE 71; RESP 20
[2017-05-05] MEDS: VITAMIN B COMPLEX/VIT C CAP PO SCH (08:24)
[2017-05-05] MEDS: CILOSTAZOL 100 MG TAB PO SCH (08:25)
[2017-05-05] MEDS: RANOLAZINE (SR) 500 MG TAB PO SCH (08:25)
[2017-05-05] MEDS: ISOSORBIDE MONONITRATE(SR)60 MG TAB PO SCH (08:25)
[2017-05-05] MEDS: FISH OIL 1,000 MG CAP PO SCH (08:25)
[2017-05-05] MEDS: DOCUSATE SODIUM 100 MG CAP PO SCH (08:25)
[2017-05-05] MEDS: ENOXAPARIN 40 MG/0.4 ML SYG SC SCH (08:26)
[2017-05-05] MEDS: TIOTROPIUM 18 MCG CAPSULE INHA DEV INH SCH (08:26)
[2017-05-05] MEDS: SALMETEROL/FLUTICASONE 500/50 INHA INH SCH (08:26)
[2017-05-05] MEDS: MULTIVITAMINS/MINERALS TAB PO SCH (08:27)
[2017-05-05] MEDS: CALCIUM/VITAMIN D (500/200) TAB PO SCH (08:27)
[2017-05-05] MEDS: METOPROLOL 25 MG TAB PO SCH (08:27)
[2017-05-05] MEDS: LIDOCAINE 5% PATCH TD SCH (08:28)
[2017-05-05] MEDS: URSODIOL 250 MG TAB PO SCH (10:30)
--- NOTE | 2017-05-05 12:26 | CONS ---
Date/Time of Note Date/Time of Note DATE: 05/05/17 TIME: 12:25 Consult Date/Type/Reason Admit Date/Time Apr 23, 2017 at 21:07 Type of Consultation: Internal medicine Subjective Comfortable, no new events. Objective Vital Signs Date Time Temp Pulse Resp B/P Pulse Ox O2 Delivery O2 Flow Rate FiO2 05/05/17 08:07 98.5 71 20 129/57 99 Room Air 05/05/17 08:00 2.0 Intake and Output 05/04/17 05/04/17 05/05/17 15:00 23:00 07:00 Intake Total 620 ml Balance 620 ml Exam GENERAL: Chronically ill-appearing lady comfortable at rest kyphoscoliosis VITAL SIGNS: per chart NECK: Supple. No JVD or lymphadenopathy. CARDIAC EXAM: S1, S2. No added sounds or murmurs. CHEST: Diminished air entry both lung floyd ABDOMEN: Soft, nontender. No guarding or rebound. EXTREMITIES: No cyanosis, clubbing or edema. NEUROLOGIC: Generalized weakness. No focal deficits. Results/Medications Result Diagram: 05/01/1762405/01/17624 Medications Current Medications Tiotropium [place] (Spiriva) 1 inh DAILY INH Last administered on 05/05/17 08: 26; Admin Dose 1 INH; Start 04/24/17 at 09:00 Tramadol HCl (Ultram) 50 mg Q6H PRN PO PAIN Last administered on 05/02/17 09:59 ; Admin Dose 50 MG; Start 04/23/17 at 22:30 Ursodiol (Lit) 250 mg BID PO Last administered on 05/05/17 10:30; Admin Dose 250 MG; Start 04/24/17 at 09:00 Vitamin B Complex/ Vitamin C (Berocca) 1 cap DAILY PO Last administered on 05/05 08:24; Admin Dose 1 CAP; Start 04/24/17 at 09:00 Pantoprazole (Protonix Tab) 40 mg DAILY@06 PO Last administered on 05/05/17 06 :41; Admin Dose 40 MG; Start 04/24/17 at 06:00 Ranolazine (Ranexa) 500 mg DAILY PO Last administered on 05/05/17 08:25; Admin Dose 500 MG; Start 04/24/17 at 09:00 Calcium/Vitamin D (Oyster Shell/ Vit-D (500/200)) 1 tab BID PO Last administered on 05/05/17 08:27; Admin Dose 1 TAB; Start 04/24/17 at 09:00 Salmeterol Xinafoate/ Fluticasone (Advair 500/50 Diskus) 1 inh BID INH Last administered on 05/05/17 08:26; Admin Dose 1 INH; Start 04/24/17 at 09:00 Acetaminophen/ Hydrocodone Bitart ([place] (5/325)) 1 tab Q6H PRN PO PAIN Last administered on 05/02/17 17:47; Admin Dose 1 TAB; Start 04/23/17 at 22:30 Isosorbide Mononitrate (Imdur) 60 mg BID PO Last administered on 05/05/17 08: 25; Admin Dose 60 MG; Start 04/24/17 at 09:00 Magnesium Hydroxide (Milk Of Mag) 30 ml DAILY PRN PO CONSTIPATION Last administered on 05/01/17 18:17; Admin Dose 30 ML; Start 04/23/17 at 22:30 Metoprolol Tartrate (Lopressor) 25 mg BID PO Last administered on 05/05/17 08: 27; Admin Dose 25 MG; Start 04/24/17 at 09:00 Multivitamins/ Minerals (Theragran-M) 1 tab DAILY PO Last administered on 08:27; Admin Dose 1 TAB; Start 04/24/17 at 09:00 Nitroglycerin (Nitroglycerin (Sl Tab) 0.4 Mg) 1 tab Q5M PRN SL CHEST PAIN; Start 04/23/17 at 22:30 Acetaminophen (Tylenol Tab) 650 mg Q6H PRN PO PAIN AND OR ELEVATED TEMP Last administered on 05/03/17 14:45; Admin Dose 650 MG; Start 04/23/17 at 22:30 Atorvastatin Calcium (Lipitor) 10 mg DAILY@21 PO Last administered on 20:42; Admin Dose 10 MG; Start 04/24/17 at 21:00 Cilostazol (Pletal) 50 mg BID PO Last administered on 05/05/17 08:25; Admin Dose 50 MG; Start 04/24/17 at 09:00 Docusate Sodium (Colace) 100 mg Q12H PRN PO CONSTIPATION; Start 04/23/17 at 22: 30 Enoxaparin Sodium (Lovenox) 40 mg DAILY SC Last administered on 05/05/17 08:26 ; Admin Dose 40 MG; Start 04/24/17 at 09:00 Fish Oil (Fish Oil) 1,000 mg DAILY PO Last administered on 05/05/17 08:25; Admin Dose 1,000 MG; Start 04/24/17 at 09:00 Furosemide (Lasix) 20 mg DAILY@06 PO Last administered on 05/05/17 06:41; Admin Dose 20 MG; Start 04/24/17 at 06:00 Docusate Sodium (Colace) 100 mg BID PO Last administered on 05/05/17 08:25; Admin Dose 100 MG; Start 04/24/17 at 09:00 Senna (Senokot) 1 tab HS PO Last administered on 05/04/17 20:42; Admin Dose 1 TAB; Start 04/24/17 at 21:00 Bisacodyl (Dulcolax Supp) 10 mg DAILY PRN [place] CONSTIPATION; Start 04/24/17 at 00: 00 Lactulose (Enulose) 20 gm DAILY PRN PO CONSTIPATION Last administered on 14:53; Admin Dose 20 GM; Start 04/24/17 at 00:00 Guaifenesin (Robitussin Liquid Cup) 100 mg Q6H PRN PO COUGH; Start 04/24/17 at 14:00 Ondansetron HCl (Zofran Tab) 8 mg Q6H PRN PO NAUSEA AND/OR VOMITING Last administered on 04/30/17 18:00; Admin Dose 8 MG; Start 04/30/17 at 17:30 Lidocaine (Lidoderm) 1 patch DAILY TD Last administered on 05/05/17 08:28; Admin Dose 1 PATCH; Start 05/01/17 at 12:30 Assessment/Plan Chief Complaint/Hosp Course Assessment 1. Mechanical fall with shoulder injury 2. History of restrictive lung disease secondary to kyphoscoliosis, chronic hypoxemic respiratory failure 3. e coli uti s/ abx. Plan 1. Continue PT 2. Continue pain control dc planning. Problems: BETZY OLIV[facility] MD, [facility] May 05, 2017 12:26
--- NOTE | 2017-05-05 12:27 | DS ---
Date/Time of Note Date/Time of Note DATE: 05/05/17 TIME: 12:24 Discharge Summary Admission/Discharge Info Admit Date/Time Apr 23, 2017 at 21:07 Discharge Date/Time Discharge Diagnosis 1. Blunt head trauma with loss of consciousness, status post fall. 2.Right shoulder tendonitis. 3.Right lower extremity contusion; Left knee effusion 4.Acute pain syndrome, improved 5. Hypertension. 6. COPD. 7. Improvements in self-care and mobility. Patient Condition: Good Hospital Course Patient was admitted for comprehensive interdisciplinary rehab care and made excellent functional gains during the course of the stay. Patient progressed from an initial moderate to maximal assist for self-care mobility tasks and progressed to the point of standby assist for self-care and mobility. Patient' s pain also significantly improved during the course of hospitalization. Despite excellent functional gains family reports that they are now unable to provide the assistance necessary at home and are requesting intermediate facility. She now able to tolerate lower level of care. Home Meds Reported Medications Vitamin B Complex/Vit C (Total B with C) 1 Each Tablet, 1 EACH GTB DAILY, TAB 04/22/17 Ursodiol* (Ursodiol*) 250 Mg Tablet, 250 MG PO BID, TAB 04/22/17 Tramadol Hcl* (Ultram*) 50 Mg Tablet, 50 MG PO Q6H Y for PAIN, TAB 04/22/17 Tiotropium [place]* (Spiriva*) 18 Mcg Cap.w.dev, 1 CAP INHALATION DAILY, #30 CAP 04/22/17 Sucralfate* (Carafate*) 1 Gm/10 Ml Susp, 1 GM PO QID, EA 04/22/17 Simvastatin* (Zocor*) 10 Mg Tablet, 10 MG PO QHS, #30 TAB 04/22/17 Ranolazine* (Ranexa*) 1,000 Mg Tab.sr.12h, 1000 MG PO DAILY, TAB 04/22/17 Pantoprazole* (Pantoprazole*) 40 Mg Tablet.dr, 40 MG PO AC BREAKFAST, TAB 04/22/17 Nitroglycerin* (Nitrostat*) 0.4 Mg Tab.subl, 0.4 MG SL Q5MIN Y for CHEST PAIN, BOTTLE 04/22/17 Multivitamin with Minerals (Multivitamins with Minerals) 1 Each Tablet, 1 EACH PO DAILY, TAB 04/22/17 Metoprolol Tartrate* (Lopressor*) 25 Mg Tab, 25 MG PO BID, #60 TAB 04/22/17 Isosorbide Mononitrate* (Isosorbide Mononitrate*) 60 Mg Tab.er.24h, 60 MG PO BID , TAB 04/22/17 Furosemide* (Furosemide*) 20 Mg Tablet, 20 MG PO DAILY, #60 TAB 04/22/17 Salmeterol Xinaf-Fluticasone* (Advair*) 500/50 Diskus Inhaler, 1 INH INHALATION BID, #1 INHALER 04/22/17 [place]-3 Fatty Acids/Fish Oil (Fish Oil 1,000 mg Capsule) 1 Each Capsule, 1 EACH PO DAILY, CAP 04/22/17 Cilostazol* (Cilostazol*) 50 Mg Tablet, 50 MG PO BID, TAB 04/22/17 Calcium Carbonate-Vitamin D3 (Calcium 500 + D Tablet) 1 Each Tablet, 1 TAB PO BID, TAB 04/22/17 Albuterol/Ipratropium* (Combivent Respimat*) 20-100 Mcg/Inh - 4 Gm Aer.w.adap, 1 PUFF INHALATION QID, #1 INHALER 04/22/17 Follow-up Plan Continue therapies at intermediate level Primary Care Provider RACHEL Boswell MD May 05, 2017 12:27
== END 2017-05-05 12:50 | DRG 945 ==
LOC: VRC 21:07
PROVIDERS: ADMIT Physical Medicine & Rehabilitation; ATTEND Internal Medicine Pulmonary Disease
PROC: F08Z1ZZ Dressing Techniques Treatment (ICD-10-PCS; principal; 2017-04-23)
PROC: F08Z0ZZ Bathing/Showering Techniques Treatment (ICD-10-PCS; 2017-04-23)
PROC: F08Z2ZZ Grooming/Personal Hygiene Treatment (ICD-10-PCS; 2017-04-23)
PROC: F07Z5ZZ Bed Mobility Treatment (ICD-10-PCS; 2017-04-23)
PROC: F07Z8ZZ Transfer Training Treatment (ICD-10-PCS; 2017-04-23)
PROC: F07Z9ZZ Gait Training/Functional Ambulation Treatment (ICD-10-PCS; 2017-04-23)
DX: S06.9X9D Unspecified intracranial injury with loss of consciousness of unspecified duration, subsequent encounter (principal); J96.11 Chronic respiratory failure with hypoxia; J44.9 Chronic obstructive pulmonary disease, unspecified; M41.80 Other forms of scoliosis, site unspecified; N39.0 Urinary tract infection, site not specified; W18.2XXD Fall in (into) shower or empty bathtub, subsequent encounter; M77.9 Enthesopathy, unspecified; S80.11XD Contusion of right lower leg, subsequent encounter; M25.462 Effusion, left knee; I10 Essential (primary) hypertension; Z74.09 Other reduced mobility; M47.896 Other spondylosis, lumbar region; M46.07 Spinal enthesopathy, lumbosacral region; I25.2 Old myocardial infarction; B96.20 Unspecified Escherichia coli [E. coli] as the cause of diseases classified elsewhere
CPT/HCPCS: 71010; 80048; 80053; 81001; 85025; 87081; 87086; 92507; 92523; 92526; 97110; 97112; 97116; 97150; 97163; 97167; 97530; 97535; A4310; J1650; J2270; J2405

== ENCOUNTER 2017-07-03 19:55 | Observation (INO) | payer MEDICARE, OTHER ==
[~2017-07-03] VITALS: Ht 144.8 cm; Wt 45.5 kg
[~2017-07-03 19:55] MED LIST changes: -VITBC GTB; +VITBC PO
[2017-07-03] MEDS ORDERED: SOD CHLORIDE 0.9% 1,000 ML IV STA (20:06)
[2017-07-03 20:35] LABS: BASOPHIL # 0.1 10^3/ul (0.0-0.1); BASOPHILS % 0.5 % (0.0-2.0); EOSINOPHILS # 0.3 10^3/ul (0.0-0.5); EOSINOPHILS % 2.8 % (0.0-7.0); HEMATOCRIT 37.6 % (37.0-47.0); LYMPHOCYTES % 8.8 % (15.0-51.0); MEAN CORPUSCULAR HEMOGLOBIN 26.3 pg (29.0-33.0); MEAN CORPUSCULAR HGB CONC 31.9 g/dl (32.0-37.0); MEAN CORPUSCULAR VOLUME 82.3 fl (82.0-101.0); MEAN PLATELET VOLUME 8.8 fl (7.4-10.4); MONOCYTE # 0.8 10^3/ul (0.3-0.9); MONOCYTES % 7.5 % (0.0-11.0); NEUTROPHIL # 8.8 10^3/ul (1.6-7.5); NEUTROPHILS % 79.9 % (39.0-77.0); PLATELET COUNT 303 10^3/UL (140-415); RED BLOOD COUNT 4.57 10^6/ul (4.20-5.40); RED CELL DISTRIBUTION WIDTH 18.3 % (11.5-14.5)
--- NOTE | 2017-07-03 20:43 | RADRPT ---
PROCEDURE: CT Brain without contrast. CLINICAL INDICATION: Syncope. Dizziness. TECHNIQUE: A CT of the brain without contrast was performed utilizing axial sections from the skul l base through the vertex. The patient was scanned without intravenous contrast enhancement. [place] l and coronal reformatted images were obtained using the data from the axial images. Total exam DLP is 630.20 mGy-cm. CTDIvol is 43.38 mGy. One or more of the following dose reduction techniques were used: Automated exposure control, adjustment of the mA and/or kV according to patient size, use of iterative reconstruction technique. DICOM images are available. COMPARISON: CT scan of the brain dated 04/22/2017. FINDINGS: There is normal lino-white matter differentiation. There is enlargement of the ventricles and subarachnoid spaces consistent with atrophy. There is decreased attenuation of the periventricular white matter consistent with microangiopathic ischemic change. There is no intracranial hemorrhage or space-occupying lesion. There are vascular calcifications consistent with atherosclerosis. There is no skull fracture or lytic lesion. IMPRESSION: 1. Atrophy. 2. Microangiopathic ischemic change. 3. Atherosclerosis. 4. No intracranial hemorrhage. 5. Otherwise unremarkable noncontrast CT scan of the brain. 6. No change from 04/22/2017. RPTAT: QQ .Pratik Santana MD, MD Date Time Electronically viewed and signed by .Pratik Santana MD, on 07/03/2017 20:42 .R/
--- NOTE | 2017-07-03 20:48 | RADRPT ---
PROCEDURE: XR Chest. CLINICAL INDICATION: Shortness of breath. TECHNIQUE: Single frontal view. COMPARISON: 05/04/2017. FINDINGS: The heart is enlarged. There is calcification in the aorta consistent with atherosclerosis. There is thoracic scoliosis convex right superiorly and convex left inferiorly. There is bilateral pulmonary scarring, unchanged. The lungs are otherwise clear. There is no pleural effusion. There is no pneumothorax. IMPRESSION: 1. No change from the 05/04/2017 chest radiograph. RPTAT: QQ .Pratik Santana MD, MD Date Time Electronically viewed and signed by .Pratik Santana MD, MD on 07/03/2017 20:48 .R/
[2017-07-03 20:51] LABS: INR 0.87; PROTIME 11.8 Sec (12.2-14.2); PT RATIO 0.9
[2017-07-03 20:57] LABS: ALANINE AMINOTRANSFERASE 20 IU/L (13-69); ALBUMIN/GLOBULIN RATIO 1.11; ALKALINE PHOSPHATASE 142 IU/L (42-121); ANION GAP 13 (8-16); ASPARTATE AMINO TRANSFERASE 21 IU/L (15-46); BILIRUBIN,INDIRECT 0.5 mg/dl (0-1.1); BILIRUBIN,TOTAL 0.5 mg/dl (0.2-1.3); BLOOD UREA NITROGEN 15 mg/dl (7-20); CALCIUM 9.7 mg/dl (8.4-10.2); CARBON DIOXIDE 35 mmol/L (21-31); CHLORIDE 94 mmol/L (97-110); CREATININE 0.67 mg/dl (0.44-1.00); GLUCOSE 108 mg/dl (70-220); POTASSIUM 5.4 mmol/L (3.5-5.1); SODIUM 137 mmol/L (135-144); TOTAL PROTEIN 7.6 g/dl (6.1-8.1)
[2017-07-03] MEDS ORDERED: ALBUTEROL 0.083% (NEB) 2.5 MG/3 ML AMP HHN STA (21:06)
[2017-07-03 21:08] LABS: TROPONIN-I < 0.012 ng/ml (0.00-0.12)
--- NOTE | 2017-07-03 21:23 | ERD ---
ER Documentation Chief Complaint Chief Complaint Syncope HPI 76-year-old woman brought in by EMS after near syncopal episode, unfortunately her daughter administered nitroglycerin during this episode. Daughter states she lost bladder control and has had recent dysuria and suprapubic discomfort. She states Nellie has also been feeling weak recently. Patient had no complaints of chest pain, no vomiting or diarrhea, no headache or blurry vision. Patient was transported here by EMS without further complications. ROS All systems reviewed and are negative except as per history of present illness. Medications Home Meds Reported Medications Propylene Glycol/Peg 400 (SYSTANE GEL EYE DROPS) 10 Ml Drops.gel, 1 DROP BOTH EYES QID Y for DRY EYES, #1 BOTTLE 07/03/17 Spironolactone* (Aldactone*) 25 Mg Tablet, 25 MG PO DAILY, #30 TAB 07/03/17 Metoclopramide* (Reglan*) 10 Mg Tablet, 10 MG PO TID, TAB 07/03/17 Isosorbide Mononitrate* (Isosorbide Mononitrate*) 60 Mg Tab.er.24h, 60 MG PO BID , TAB 07/03/17 Metoprolol Succinate* (Toprol XL*) 25 Mg Tab.sr.24h, 25 MG PO BID, #30 TAB 07/03/17 Sucralfate* (Carafate*) 1 Gm/10 Ml Susp, 1 GM PO TID, EA 07/03/17 Omeprazole* (Omeprazole*) 20 Mg Capsule.dr, 20 MG PO DAILY, #30 CAP 07/03/17 Neomycin/Polymyxin/Hydrocort* (Cortisporin* Otic) 10 Ml Susp, 1 DROP QID, #1 EA instill 1 drop into affected ear Four times daily for 7 days 07/03/17 Lansoprazole* (Lansoprazole*) 30 Mg Capsule.dr, 30 MG PO BID, CAP 07/03/17 Vitamin B Complex/Vit C (Total B with C) 1 Each Tablet, 1 EACH PO DAILY, TAB 04/22/17 Ursodiol* (Ursodiol*) 250 Mg Tablet, 250 MG PO BID, TAB 04/22/17 Tramadol Hcl* (Ultram*) 50 Mg Tablet, 50 MG PO Q6H Y for PAIN, TAB 04/22/17 Tiotropium [place]* (Spiriva*) 18 Mcg Cap.w.dev, 1 CAP INHALATION DAILY, #30 CAP 04/22/17 Simvastatin* (Zocor*) 10 Mg Tablet, 10 MG PO QHS, #30 TAB 04/22/17 Nitroglycerin* (Nitrostat*) 0.4 Mg Tab.subl, 0.4 MG SL Q5MIN Y for CHEST PAIN, BOTTLE 04/22/17 Multivitamin with Minerals (Multivitamins with Minerals) 1 Each Tablet, 1 EACH PO DAILY, TAB 04/22/17 Salmeterol Xinaf-Fluticasone* (Advair*) 500/50 Diskus Inhaler, 1 INH INHALATION BID, #1 INHALER 04/22/17 [place]-3 Fatty Acids/Fish Oil (Fish Oil 1,000 mg Capsule) 1 Each Capsule, 1 EACH PO DAILY, CAP 04/22/17 Cilostazol* (Cilostazol*) 50 Mg Tablet, 50 MG PO BID, TAB 04/22/17 Calcium Carbonate-Vitamin D3 (Calcium 500 + D Tablet) 1 Each Tablet, 1 TAB PO BID, TAB 04/22/17 Albuterol/Ipratropium* (Combivent Respimat*) 20-100 Mcg/Inh - 4 Gm Aer.w.adap, 1 PUFF INHALATION QID, #1 INHALER 04/22/17 Discontinued Reported Medications Oxybutynin Chloride* (Ditropan*) 5 Mg Tablet, 2.5 MG PO TID, TAB 07/03/17 Sucralfate* (Carafate*) 1 Gm/10 Ml Susp, 1 GM PO QID, EA 04/22/17 Ranolazine* (Ranexa*) 1,000 Mg Tab.sr.12h, 1000 MG PO DAILY, TAB 04/22/17 Pantoprazole* (Pantoprazole*) 40 Mg Tablet.dr, 40 MG PO AC BREAKFAST, TAB 04/22/17 Metoprolol Tartrate* (Lopressor*) 25 Mg Tab, 25 MG PO BID, #60 TAB 04/22/17 Isosorbide Mononitrate* (Isosorbide Mononitrate*) 60 Mg Tab.er.24h, 60 MG PO BID , TAB 04/22/17 Furosemide* (Furosemide*) 20 Mg Tablet, 20 MG PO DAILY, #60 TAB 04/22/17 Allergies Allergies: Coded Allergies: dexamethasone (Verified Allergy, Intermediate, SKIN RASHES REDNESS, ) Uncoded Allergies: UNKNOWN ANTIHYPERTENSIVE (Allergy, Severe, 04/30/11) PMhx/Soc Ischemic cardiomyopathy with a depressed left ventricular ejection fraction, hypertension, COPD, interstitial lung disease, myocardial infarction, CAD, dyslipidemia, gastritis History of Surgery: Yes (tubal ligation) Anesthesia Reaction: No Hx Neurological Disorder: Yes (CVA 1990) Hx Respiratory Disorders: Yes (COPD) Hx Cardiac Disorders: Yes (HTN,CHF,TX,CAD) Hx Psychiatric Problems: No Hx Miscellaneous Medical Probl: No Hx Alcohol Use: No Hx Substance Use: No Hx Tobacco Use: No Smoking Status: Never smoker FmHx Family History: No diabetes Physical Exam Vitals Vital Signs Date Time Temp Pulse Resp B/P Pulse Ox O2 Delivery O2 Flow Rate FiO2 07/03/17 20:30 98.2 79 25 137/81 98 Nasal Cannula 2.0 07/03/17 19:55 98.2 79 25 137/81 98 Physical Exam GENERAL: Elderly, chronically debilitated woman, afebrile, appears dehydrated HEENT: Dry mucous membranes, pink conjunctiva, no cervical spine tenderness or step-off deformities, no goiter, no jaundice or icterus, extraocular movements intact without pain. No submandibular induration, and no pharyngeal erythema NEURO: Alert and oriented 3, cranial nerves II through XII intact bilaterally, pupils equal round reactive to light, no focal deficits or facial asymmetry, sensation intact distally Strength 5/5 in upper and lower extremities bilaterally CARDIAC: Regular rate and rhythm, no murmurs rubs or gallops LUNGS: Clear bilaterally no wheezing crackles or stridor ABDOMEN: Soft nontender, no guarding, no rigidity, no rebound, no psoas sign no obturator sign. Normoactive bowel sounds SKIN: Warm and dry to touch, no abrasions, contusions, or hematomas, no lacerations, no ecchymosis, no target lesions, and without ulcers EXTREMITIES: No clubbing cyanosis or edema, calves are bilaterally symmetrical, no Homans sign, no popliteal cord sign. Distal pulses equal and bilateral PSYCH: Normal affect without agitation or irritability Result Diagram: 07/03/17201407/03/172014 Results 24 hrs Laboratory Tests Test 07/03/17 20:15 07/03/17 21:00 White Blood Count 11.010^3/ul Red Blood Count 4.5710^6/ul Hemoglobin 12.0g/dl Hematocrit 37.6% Mean Corpuscular Volume 82.3fl Mean Corpuscular Hemoglobin 26.3pg Mean Corpuscular Hemoglobin Concent 31.9g/dl Red Cell Distribution Width 18.3% Platelet Count 19001^3/UL Mean Platelet Volume 8.8fl Neutrophils % 79.9% Lymphocytes % 8.8% Monocytes % 7.5% Eosinophils % 2.8% Basophils % 0.5% Nucleated Red Blood Cells % 0.0/100WBC Neutrophils # 8.810^3/ul Lymphocytes # 1.010^3/ul Monocytes # 0.810^3/ul Eosinophils # 0.310^3/ul Basophils # 0.110^3/ul Nucleated Red Blood Cells # 0.010^3/ul Prothrombin Time 11.8Sec Prothrombin Time Ratio 0.9 INR International Normalized Ratio 0.87 Sodium Level 137mmol/L Potassium Level 5.4mmol/L Chloride Level 94mmol/L Carbon Dioxide Level 35mmol/L Anion Gap 13 Blood Urea Nitrogen 15mg/dl Creatinine 0.67mg/dl Glucose Level 108mg/dl Calcium Level 9.7mg/dl Total Bilirubin 0.5mg/dl Direct Bilirubin 0.00mg/dl Indirect Bilirubin 0.5mg/dl Aspartate Amino Transf (AST/SGOT) 21IU/L Alanine Aminotransferase (ALT/SGPT) 20IU/L Alkaline Phosphatase 142IU/L Troponin I < 0.012ng/ml Total Protein 7.6g/dl Albumin 4.0g/dl Globulin 3.60g/dl Albumin/Globulin Ratio 1.11 Lipase 44U/L Urine Color [place] Urine Clarity SLIGHTLY CLOUDY Urine pH 6.0 Urine Specific [place] 1.019 Urine Ketones TRACEmg/dL Urine Nitrite POSITIVEmg/dL Urine Bilirubin NEGATIVEmg/dL Urine Urobilinogen 1+mg/dL Urine Leukocyte Esterase TRACELeu/ul Urine Microscopic RBC 1/HPF Urine Microscopic WBC 21/HPF Urine Squamous Epithelial Cells FEW/HPF Urine Bacteria FEW/HPF Urine Mucus FEW/HPF Urine Hemoglobin NEGATIVEmg/dL Urine Glucose NEGATIVEmg/dL Urine Total Protein NEGATIVEmg/dl Current Medications Medications (Trade) Dose Ordered Sig/[place]yn Route PRN Reason Start Time Stop Time Status Last Admin Dose Admin Sodium Chloride (NS) 1,000 ml @ 1,000 mls/hr Q1H STAT IV 07/03/17 20:06 07/03/17 21:05 DC Albuterol 5 mg 5 mg ONCE STAT HHN 07/03/17 21:06 07/03/17 21:07 DC Ceftriaxone Sodium (Rocephin) 50 ml @ 100 mls/hr ONCE ONCE IVPB 07/03/17 22:30 07/03/17 22:59 UNV Procedures/MDM IV line was established patient was placed on cardiac rehabilitation specialist rhythm strip revealed a sinus rhythm at about 80 bpm with upright P and T waves. Patient was afebrile EKG performed, read by me revealed a normal sinus rhythm at 77 bpm, normal axis , left bundle branch block, no concerning ST elevations or depressions noted. I administered 1 L normal saline intravenously. CBC was normal, electrolytes revealed hyperkalemia 5.4, liver function tests normal, troponin negative. CT scan of the brain was performed that was negative for acute bleed mass or shift. Urinalysis is positive for infection. I administered albuterol 5 mg for acute hyperkalemia and treated her here with ceftriaxone 1 g IV. Patient's vital signs are normal but she will be admitted to telemetry setting for continued medical management, IV antibiotics, and possible cardiology consultation. Departure Diagnosis: Primary Impression: Acute hyperkalemia Additional Impressions: Autonomic instability Acute urinary tract infection Condition: REGINALD Edgar MD Jul 03, 2017 21:23
[2017-07-03] MEDS ORDERED: LANS30CA PO (21:29)
[2017-07-03] MEDS ORDERED: NPH10OT (21:29)
[2017-07-03 21:43] LABS: ADD UMIC YES; UR ASCORBIC ACID 40 mg/dL (NEGATIVE); UR BACTERIA FEW /HPF (NONE SEEN); UR BILIRUBIN (Dip) NEGATIVE (NEGATIVE); UR BLOOD (Dip) NEGATIVE (NEGATIVE); UR CLARITY SLIGHTLY CLOUDY (CLEAR); UR COLOR AMBER (YELLOW); UR GLUCOSE (Dip) NEGATIVE (NEGATIVE); UR KETONES (Dip) TRACE mg/dL (NEGATIVE); UR LEUKOCYTE ESTERASE (Dip) TRACE Leu/ul (NEGATIVE); UR MUCUS FEW /HPF (NONE SEEN); UR NITRITE (Dip) POSITIVE (NEGATIVE); UR RBC 1 /HPF (0-5); UR SPECIFIC GRAVITY (Dip) 1.019 (1.003-1.030); UR SQUAMOUS EPITHELIAL CELL FEW /HPF (FEW); UR TOTAL PROTEIN (Dip) NEGATIVE (NEGATIVE); UR UROBILINOGEN (Dip) 1+ mg/dL (NEGATIVE)
[2017-07-03] MEDS ORDERED: ISOS60TA PO (21:45)
[2017-07-03] MEDS ORDERED: METO10TA92 PO (21:45)
[2017-07-03] MEDS ORDERED: OMEP20CA16 PO (21:45)
[2017-07-03] MEDS ORDERED: CARAS PO (21:45)
[2017-07-03] MEDS ORDERED: SPIR25TA PO (21:45)
[2017-07-03] MEDS ORDERED: OXYB5TAB7 PO (21:45)
[2017-07-03] MEDS ORDERED: METO-335 PO (21:45)
[2017-07-03] MEDS ORDERED: PROP10DR2 BOTH EYES (21:53)
[2017-07-03] MEDS ORDERED: CEFTRIAXONE 1 GM/50 ML (PMX) 50 ML IVPB ONE (22:30)
[2017-07-03] MEDS ORDERED: SOD CHLORIDE 0.9% 1,000 ML IV SCH (22:34)
[2017-07-03] MEDS ORDERED: LORAZEPAM 0.5 MG TAB PO PRN (23:00)
[2017-07-03] MEDS ORDERED: NITROGLYCERIN (SL) 0.4 MG TAB SL PRN (23:00)
[2017-07-03] MEDS ORDERED: NA POLYST SULFON 15 GM/60 ML BTL PO ONE (23:00)
[2017-07-03] MEDS ORDERED: ONDANSETRON 4 MG INJ IV PRN (23:00)
[2017-07-03] MEDS ORDERED: NACL 0.9% 3 ML SYG IV SCH (23:00)
[2017-07-03] MEDS ORDERED: traMADol 50 MG TAB PO PRN (23:00)
[2017-07-03] MEDS ORDERED: ALBUTEROL/IPRATROPIUM (NEB) 3 ML AMP HHN PRN (23:00)
[2017-07-03] MEDS ORDERED: morphine 2 MG INJ IV PRN (23:00)
[2017-07-03 23:02] VITALS: TEMP 97.9
[2017-07-04] VITALS (12 sets, daily range): BP systolic 118–148; BP diastolic 60–83; PULSE 71–87; RESP 18–20; Ht 144.8 cm; Wt 45.5 kg
[2017-07-04 00:03] LABS: CK-MB < 0.22 ng/ml (0.0-2.4); CREATINE KINASE < 20 IU/L (23-200); TROPONIN-I < 0.012 ng/ml (0.00-0.12)
[2017-07-04] MEDS: ACETAMINOPHEN 325 MG TAB PO PRN ×2 (00:36→17:09)
--- NOTE | 2017-07-04 06:35 | HP ---
Date/Time of Note Date/Time of Note DATE: 07/04/17 TIME: 06:25 Assessment/Plan VTE Prophylaxis VTE Prophylaxis Intervention: SCD's Lines/Catheters IV Catheter Type (from [facility]): Peripheral IV Urinary Cath still in place: No Assessment/Plan Assessment/Plan 1. Near syncope -Patient had loss of bladder control and almost fainted. I suspect she may have been hypotensive at that moment. -Check orthostatics -Trend troponin -Head CT with no acute findings -Recent 2D echo with preserved EF, no need to repeat echo on this admission -Physical therapy eval 2. UTI -IV antibiotic and IV fluids -Follow-up culture results 3. History of COPD: No sign of acute exacerbation -Continue home inhalers -Supplemental oxygen 4. History of RI -No active chest pain -Given her near syncope, will trend troponin -Continue home meds 5. Hypokalemia -Correct electrolytes as needed 6. Suspect history of gastritis/GERD -Continue PPI and sucralfate HPI/ROS Admit Date/Time Admit Date/Time Jul 03, 2017 at 21:29 Hx of Present Illness This is a 76-year-old female with a history of hypertension, COPD, probable RI who was brought to the ER after she almost fainted. Patient is been complaining of dysuria as well as pain in the suprapubic area. She had lost control of her bladder and she looked dizzy and almost passed out. No chest pain, shortness of breath, palpitations reported. Patient was admitted here about 2 months ago for a near syncope after blunt head trauma. Head CT was negative for acute findings. At that time she was discharged to rehab. When she presented to the ER this time, vitals were stable. Labs shows a WBC of 11,000, potassium 5.4, bicarb 35. Urinalysis was consistent with UTI. Head CT and chest x-ray was no acute findings. EKG was no ST-T wave abnormality. . PMH/Family/Social Social History Smoking Status: Never smoker Exam/Review of Systems Vital Signs Vitals Vital Signs Date Time Temp Pulse Resp B/P Pulse Ox O2 Delivery O2 Flow Rate FiO2 07/04/17 04:30 87 07/04/17 04:07 98.2 19 120/60 98 07/04/17 01:23 Nasal Cannula 2.0 07/03/17 22:25 28 Intake and Output 07/03/17 07/03/17 07/04/17 15:00 23:00 07:00 Intake Total 120 ml Balance 120 ml Exam Constitutional: other (Sleepy but arousable. No acute distress) Head: atraumatic, normocephalic Eyes: EOMI, PERRL Respiratory: other (Slightly decreased breath sounds at the bases bilaterally) Cardiovascular: nl pulses, regular rate and rhythm Gastrointestinal: soft Extremities: normal pulses Labs Result Diagram: 07/03/17201407/03/172014 Medications Medications Current Medications Sodium Chloride (NS) 1,000 ml @ 75 mls/hr [id number] IV Last administered on 00:16; Admin Dose 75 MLS/HR; Start 07/03/17 at 22:34; Stop 07/04/17 at 22:00 Lorazepam (Ativan) 0.5 mg Q8H PRN PO ANXIETY; Start 07/03/17 at 23:00 Ondansetron HCl (Zofran Inj) 4 mg Q6H PRN IV NAUSEA AND/OR VOMITING; Start 06/09 at 23:00 Nitroglycerin (Nitroglycerin (Sl Tab) 0.4 Mg) 1 tab Q5M PRN SL CHEST PAIN; Start 07/03/17 at 23:00 Acetaminophen (Tylenol Tab) 650 mg Q6H PRN PO PAIN LEVEL 1-3 OR FEVER Last administered on 07/04/17 00:36; Admin Dose 650 MG; Start 07/03/17 at 23:00 Morphine Sulfate (morphine) 2 mg Q4H PRN IV PAIN LEVEL 7-10; Start 07/03/17 at 23:00 Heparin Sodium (Porcine) (Heparin (5000 Units/0.5 ml)) 5,000 unit Q12 SC ; Start 07/04/17 at 09:00 Cilostazol (Pletal) 50 mg BID PO ; Start 07/04/17 at 09:00 Lansoprazole (Prevacid) 30 mg BID PO ; Start 07/04/17 at 09:00 Metoprolol Succinate (Toprol Xl) 25 mg BID PO ; Start 07/04/17 at 09:00 Neomycin/ Polymyxin/ Hydrocortisone (Cortisporin Otic Susp) 1 drop QID BOTH EARS ; Start 07/04/17 at 09:00 Salmeterol Xinafoate/ Fluticasone (Advair 500/50 Diskus) 1 inh BID INH ; Start 07/04/17 at 09:00 Sucralfate (Carafate Susp) 1 gm TID PO ; Start 07/04/17 at 09:00 Tiotropium [place] (Spiriva) 1 inh DAILY INH ; Start 07/04/17 at 09:00 Tramadol HCl (Ultram) 50 mg Q6H PRN PO PAIN; Start 07/03/17 at 23:00 Ursodiol (Lit) 250 mg BID PO ; Start 07/04/17 at 09:00 Vitamin B Complex/ Vitamin C (Berocca) 1 cap DAILY PO ; Start 07/04/17 at 09:00 Patient Own Medication 1 ea 1 ea QHS PO ; Start 07/04/17 at 21:00 Ceftriaxone Sodium (Rocephin) 50 ml @ 100 mls/hr Q12 IVPB ; Start 07/04/17 at 09:00 JIGAR MCMULLEN MD Jul 04, 2017 06:35
[2017-07-04 08:30] LABS: BASOPHILS % 0.6 % (0.0-2.0); EOSINOPHILS # 0.1 10^3/ul (0.0-0.5); EOSINOPHILS % 1.3 % (0.0-7.0); HEMATOCRIT 32.5 % (37.0-47.0); HEMOGLOBIN 10.5 g/dl (12.0-16.0); LYMPHOCYTES % 15.3 % (15.0-51.0); MEAN CORPUSCULAR HEMOGLOBIN 26.5 pg (29.0-33.0); MEAN CORPUSCULAR HGB CONC 32.3 g/dl (32.0-37.0); MEAN CORPUSCULAR VOLUME 82.1 fl (82.0-101.0); MEAN PLATELET VOLUME 9.2 fl (7.4-10.4); MONOCYTE # 0.5 10^3/ul (0.3-0.9); MONOCYTES % 7.8 % (0.0-11.0); NEUTROPHIL # 5.1 10^3/ul (1.6-7.5); NEUTROPHILS % 74.4 % (39.0-77.0); PLATELET COUNT 290 10^3/UL (140-415); RED BLOOD COUNT 3.96 10^6/ul (4.20-5.40); RED CELL DISTRIBUTION WIDTH 18.4 % (11.5-14.5); WHITE BLOOD COUNT 6.8 10^3/ul (4.8-10.8)
[2017-07-04 08:39] LABS: ALBUMIN 3.1 g/dl (3.3-4.9); ALBUMIN/GLOBULIN RATIO 1.06; BILIRUBIN,INDIRECT 0.5 mg/dl (0-1.1); BILIRUBIN,TOTAL 0.5 mg/dl (0.2-1.3); CALCIUM 8.6 mg/dl (8.4-10.2); CREATININE 0.56 mg/dl (0.44-1.00); POTASSIUM 4.4 mmol/L (3.5-5.1)
[2017-07-04 08:50] LABS: CK-MB 0.28 ng/ml (0.0-2.4)
[2017-07-04 09:02] LABS: CREATINE KINASE < 20 IU/L (23-200); TROPONIN-I < 0.012 ng/ml (0.00-0.12)
[2017-07-04] MEDS: LANSOPRAZOLE 30 MG CAP PO SCH ×2 (09:16→21:20)
[2017-07-04] MEDS: SUCRALFATE (100 MG/ML) 10ML CUP PO SCH ×3 (09:16→21:22)
[2017-07-04] MEDS: VITAMIN B COMPLEX/VIT C CAP PO SCH (09:16)
[2017-07-04] MEDS: URSODIOL 250 MG TAB PO SCH ×2 (09:17→21:20)
[2017-07-04] MEDS: METOPROLOL (XL) 25 MG TAB PO SCH ×2 (09:17→21:21)
[2017-07-04] MEDS: CILOSTAZOL 100 MG TAB PO SCH ×2 (09:17→21:20)
[2017-07-04] MEDS: HEPARIN 5,000 UNIT/0.5 ML VIAL SC SCH ×2 (09:19→21:23)
[2017-07-04] MEDS: CEFTRIAXONE 1 GM/50 ML (PMX) 50 ML IVPB SCH ×2 (09:53→21:27)
[2017-07-04] MEDS: SALMETEROL/FLUTICASONE 500/50 INHA INH SCH ×2 (09:54→21:21)
[2017-07-04] MEDS: NEOMYC/POLYMYX/HC 10 ML OTIC SUSP BOTH EARS SCH ×5 (09:54→21:21)
[2017-07-04] MEDS: TIOTROPIUM 18 MCG CAPSULE INHA DEV INH SCH (09:54)
[2017-07-04] MEDS: SIMVASTATIN 10 MG PO SCH (21:22)
[2017-07-05] VITALS (12 sets, daily range): BP systolic 116–146; BP diastolic 56–68; PULSE 65–79; RESP 18–20
[2017-07-05 07:28] LABS: BASOPHIL # 0.1 10^3/ul (0.0-0.1); BASOPHILS % 0.9 % (0.0-2.0); EOSINOPHILS # 0.3 10^3/ul (0.0-0.5); EOSINOPHILS % 5.8 % (0.0-7.0); HEMATOCRIT 32.7 % (37.0-47.0); HEMOGLOBIN 10.3 g/dl (12.0-16.0); LYMPHOCYTES # 0.9 10^3/ul (0.8-2.9); LYMPHOCYTES % 17.1 % (15.0-51.0); MEAN CORPUSCULAR HEMOGLOBIN 25.9 pg (29.0-33.0); MEAN CORPUSCULAR HGB CONC 31.5 g/dl (32.0-37.0); MEAN CORPUSCULAR VOLUME 82.4 fl (82.0-101.0); MEAN PLATELET VOLUME 9.2 fl (7.4-10.4); MONOCYTE # 0.5 10^3/ul (0.3-0.9); MONOCYTES % 9.8 % (0.0-11.0); NEUTROPHIL # 3.5 10^3/ul (1.6-7.5); PLATELET COUNT 284 10^3/UL (140-415); RED BLOOD COUNT 3.97 10^6/ul (4.20-5.40); RED CELL DISTRIBUTION WIDTH 18.7 % (11.5-14.5); WHITE BLOOD COUNT 5.3 10^3/ul (4.8-10.8)
[2017-07-05 08:03] LABS: CALCIUM 8.5 mg/dl (8.4-10.2); CREATININE 0.6 mg/dl (0.44-1.00); POTASSIUM 4.1 mmol/L (3.5-5.1)
[2017-07-05 08:09] LABS: CHOL/HDL RATIO 2.5 RATIO; MAGNESIUM 1.5 mg/dl (1.7-2.5); PHOSPHORUS 3.8 mg/dl (2.5-4.9)
[2017-07-05] MEDS: NEOMYC/POLYMYX/HC 10 ML OTIC SUSP BOTH EARS SCH ×4 (08:14→21:01)
[2017-07-05] MEDS: LANSOPRAZOLE 30 MG CAP PO SCH ×2 (08:15→21:01)
[2017-07-05] MEDS: METOPROLOL (XL) 25 MG TAB PO SCH ×2 (08:15→21:02)
[2017-07-05] MEDS: URSODIOL 250 MG TAB PO SCH ×2 (08:15→21:01)
[2017-07-05] MEDS: CILOSTAZOL 100 MG TAB PO SCH ×2 (08:15→21:01)
[2017-07-05] MEDS: VITAMIN B COMPLEX/VIT C CAP PO SCH (08:15)
[2017-07-05] MEDS: SUCRALFATE (100 MG/ML) 10ML CUP PO SCH ×3 (08:15→21:01)
[2017-07-05] MEDS: TIOTROPIUM 18 MCG CAPSULE INHA DEV INH SCH (08:16)
[2017-07-05] MEDS: SALMETEROL/FLUTICASONE 500/50 INHA INH SCH ×2 (08:16→21:01)
[2017-07-05] MEDS: HEPARIN 5,000 UNIT/0.5 ML VIAL SC SCH ×2 (08:17→21:09)
[2017-07-05 08:39] LABS: THYROID STIMULATING HORMONE 2.29 MIU/L (0.465-4.680)
[2017-07-05] MEDS: CEFTRIAXONE 1 GM/50 ML (PMX) 50 ML IVPB SCH ×2 (08:57→21:01)
[2017-07-05] MEDS ORDERED: MAGNESIUM SULFATE 2 GM/50 ML 50 ML IVPB ONE (09:30)
--- NOTE | 2017-07-05 10:44 | RADRPT ---
PROCEDURE: US carotid arteries. CLINICAL INDICATION: Dizziness. TECHNIQUE: Multiple sonographic images of the carotid arteries and vertebral arteries were obtaine d utilizing lion scale, duplex, and color-flow imaging. The images were reviewed on a PACS workstati on. COMPARISON: No prior studies are available for comparison. FINDINGS: Evaluation of the right carotid bifurcation region reveals mild atherosclerotic disease. Evaluation of the left carotid bifurcation region reveals mild atherosclerotic disease. There is antegrade flow within the vertebral arteries bilaterally. RIGHT CAROTID MEASUREMENTS: Common Carotid [id number] (cm/sec) Internal Carotid Artery 70 (cm/sec) External Carotid Artery 141 (cm/sec) Vertebral Artery 71 (cm/sec) Internal Carotid/Common Carotid0.8 LEFT CAROTID MEASUREMENTS: Common Carotid [id number] (cm/sec) Internal Carotid Artery 84 (cm/sec) External Carotid Artery 118 (cm/sec) Vertebral Artery 84 (cm/sec) Internal Carotid/Common Carotid1.0 Validated velocity measurements with angiographic measurements. Velocity criteria are extrapolated f rom diameter data as defined by the Society of Radiologists in Ultrasound Consensus Conference. Radi ology 2003; 229;340-346. This study does indirectly reference the measurement of the distal ICA chavo meter as the denominator for stenosis measurement. IMPRESSION: 1. Less than 50% stenosis bilaterally in the internal carotid arteries. 2. Normal antegrade flow in the vertebral arteries bilaterally. RPTAT: QQ SRU Consensus Conference Criteria for the Diagnosis of Carotid Artery Stenosis* Degree of Stenosis, % ICA PSV, cm/sec Plaque Estimate, % ICA/CCA PSV Ratio Normal <125 None <2.0 <50 <125 <50 <2.0 50 69 125-230 >50 2.0-4.0 >70 but less than near occlusion >230 >50 <4.0 Near occlusion High, low, or undetectable Visible Variable Total occlusion Undetectable Visible, no detectable lumen Not applicable *Cartoid artery stenosis: lino-scale and Doppler US diagnosis. Society of Radiologists in Ultrasound Consensus Conference. Radiology 2003; 229: 340-346 .Pratik Santana MD, Date Time Electronically viewed and signed by .Pratik Santana MD, on 07/05/2017 10:44 .R/
--- NOTE | 2017-07-05 12:03 | PN ---
Date/Time of Note Date/Time of Note DATE: 07/05/17 TIME: 11:58 Assessment/Plan VTE Prophylaxis VTE Prophylaxis Intervention: SCD's Lines/Catheters IV C[facility]ter Type (from [facility]): [place] Urinary Cath still in place: No Assessment/Plan Chief Complaint/Hosp Course Assessment and plan 1. suspect syncope. Follow-up on orthostatic blood pressures. Normotensive at present. Serial troponins negative. Head CT with no acute findings. Recent echocardiogram with preserved ejection fraction. Physical therapy following. Continue the recommendations. Carotid Doppler also with less than 50% stenosis bilaterally 2. Urinary tract infection. Continue with IV antibiotics. Urine culture with no evidence of infection for now. Will follow up. 3. History of COPD. Provide with oxygen and bronchiolitis as needed. 4. History of myocardial infarction. Continue patient's home medications. 5. Hypokalemia. Will monitor and replete lites as needed. 6. GERD. Continue PPI and sucralfate Disposition and plan: Overall appears improved. Will follow up with case management for home with home health services versus half-way facility placement. Anticipate discharge within the next 24 hours if medically stable Discussed plan of care with Problems: Subjective 24 Hr Interval Summary Free Text/Dictation comfortable at present. no s/s of distress Exam/Review of Systems Vital Signs Vitals Vital Signs Date Time Temp Pulse Resp B/P Pulse Ox O2 Delivery O2 Flow Rate FiO2 07/05/17 08:11 98.3 65 18 146/68 98 07/05/17 08:00 Nasal Cannula 2.0 07/03/17 22:25 28 Intake and Output 07/04/17 07/04/17 07/05/17 15:00 23:00 07:00 Intake Total 50 ml 800 ml 240 ml Balance 50 ml 800 ml 240 ml Exam Constitutional: alert, oriented Head: normocephalic Eyes: nl conjunctiva Neck: non-tender, supple Respiratory: clear to auscultation, normal air movement Cardiovascular: regular rate and rhythm Gastrointestinal: non-tender, soft Musculoskeletal: No nl gait and stance Neurological: [employer] II-XII intact, nl mental status, nl speech Skin: nl turgor Results Result Diagram: 07/05/17 0634 07/05/17 0634 Results 24 hrs Laboratory Tests Test 07/05/17 06:34 White Blood Count 5.3 # Red Blood Count 3.97 L Hemoglobin 10.3 L Hematocrit 32.7 L Mean Corpuscular Volume 82.4 Mean Corpuscular Hemoglobin 25.9 L Mean Corpuscular Hemoglobin Concent 31.5 L Red Cell Distribution Width 18.7 H Platelet Count 284 Mean Platelet Volume 9.2 Neutrophils % 66.0 Lymphocytes % 17.1 Monocytes % 9.8 Eosinophils % 5.8 Basophils % 0.9 Nucleated Red Blood Cells % 0.0 Neutrophils # 3.5 Lymphocytes # 0.9 Monocytes # 0.5 Eosinophils # 0.3 Basophils # 0.1 Nucleated Red Blood Cells # 0.0 Sodium Level 138 Potassium Level 4.1 Chloride Level 97 Carbon Dioxide Level 33 H Anion Gap 12 Blood Urea Nitrogen 9 Creatinine 0.60 Glucose Level 83 Hemoglobin A1c 5.2 Calcium Level 8.5 Phosphorus Level 3.8 Magnesium Level 1.5 L Triglycerides Level 67 Cholesterol Level 135 LDL Cholesterol, Calculated 70 HDL Cholesterol 52 Cholesterol/HDL Ratio 2.5 Thyroid Stimulating Hormone (TSH) 2.290 Free Thyroxine 1.10 Medications Medications Current Medications Lorazepam (Ativan) 0.5 mg Q8H PRN PO ANXIETY; Start 07/03/17 at 23:00 Ondansetron HCl (Zofran Inj) 4 mg Q6H PRN IV NAUSEA AND/OR VOMITING; Start 06/09 at 23:00 Nitroglycerin (Nitroglycerin (Sl Tab) 0.4 Mg) 1 tab Q5M PRN SL CHEST PAIN; Start 07/03/17 at 23:00 Acetaminophen (Tylenol Tab) 650 mg Q6H PRN PO PAIN LEVEL 1-3 OR FEVER Last administered on 07/04/17 17:09; Admin Dose 650 MG; Start 07/03/17 at 23:00 Morphine Sulfate (morphine) 2 mg Q4H PRN IV PAIN LEVEL 7-10; Start 07/03/17 at 23:00 Heparin Sodium (Porcine) (Heparin (5000 Units/0.5 ml)) 5,000 unit Q12 SC Last administered on 07/05/17 08:17; Admin Dose 5,000 UNIT; Start 07/04/17 at 09: 00 Cilostazol (Pletal) 50 mg BID PO Last administered on 07/05/17 08:15; Admin Dose 50 MG; Start 07/04/17 at 09:00 Lansoprazole (Prevacid) 30 mg BID PO Last administered on 07/05/17 08:15; Admin Dose 30 MG; Start 07/04/17 at 09:00 Metoprolol Succinate (Toprol Xl) 25 mg BID PO Last administered on 07/05/17 08:15; Admin Dose 25 MG; Start 07/04/17 at 09:00 Neomycin/ Polymyxin/ Hydrocortisone (Cortisporin Otic Susp) 1 drop QID BOTH EARS Last administered on 07/05/17 08:14; Admin Dose 1 DROP; Start 07/04/17 at 09:00 Salmeterol Xinafoate/ Fluticasone (Advair 500/50 Diskus) 1 inh BID INH Last administered on 07/05/17 08:16; Admin Dose 1 INH; Start 07/04/17 at 09:00 Sucralfate (Carafate Susp) 1 gm TID PO Last administered on 07/05/17 08:15; Admin Dose 1 GM; Start 07/04/17 at 09:00 Tiotropium [place] (Spiriva) 1 inh DAILY INH Last administered on 07/05/17 08 :16; Admin Dose 1 INH; Start 07/04/17 at 09:00 Tramadol HCl (Ultram) 50 mg Q6H PRN PO PAIN; Start 07/03/17 at 23:00 Ursodiol (Lit) 250 mg BID PO Last administered on 07/05/17 08:15; Admin Dose 250 MG; Start 07/04/17 at 09:00 Vitamin B Complex/ Vitamin C (Berocca) 1 cap DAILY PO Last administered on 08:15; Admin Dose 1 CAP; Start 07/04/17 at 09:00 Patient Own Medication 1 ea 1 ea QHS PO Last administered on 07/04/17 21:22; Admin Dose 1 EA; Start 07/04/17 at 21:00 Ceftriaxone Sodium (Rocephin) 50 ml @ 100 mls/hr Q12 IVPB Last administered on 07/05/17 08:57; Admin Dose 100 MLS/HR; Start 07/04/17 at 09:00 ROSAURA CUEVAS Jul 05, 2017 12:03
[2017-07-05] MEDS: ACETAMINOPHEN 325 MG TAB PO PRN (14:05)
[2017-07-05] MEDS ORDERED: CIPR500T4 PO (14:32)
--- NOTE | 2017-07-05 14:33 | PDOCDIS ---
Discharge Instructions DIAGNOSIS Discharge Diagnosis 1. suspect syncope. 2. Urinary tract infection. 3. History of COPD 4. History of myocardial infarction. 5. Hypokalemia. 6. GERD. CONDITION Patient Condition: Stable HOME CARE INSTRUCTIONS: Special Diet: Regular diet FOLLOW UP/APPOINTMENTS Follow-up Plan 1. Follow up with your primary care provider in one week ROSAURA CUEVAS Jul 05, 2017 14:33
[2017-07-05] MEDS: SIMVASTATIN 10 MG PO SCH (21:02)
[2017-07-06] VITALS (10 sets, daily range): BP systolic 117–149; BP diastolic 59–69; PULSE 63–82; RESP 18–20
[2017-07-06 07:31] LABS: BASOPHIL # 0.1 10^3/ul (0.0-0.1); EOSINOPHILS # 0.3 10^3/ul (0.0-0.5); EOSINOPHILS % 4.4 % (0.0-7.0); HEMATOCRIT 39.2 % (37.0-47.0); HEMOGLOBIN 12.5 g/dl (12.0-16.0); LYMPHOCYTES # 1.1 10^3/ul (0.8-2.9); MEAN CORPUSCULAR HEMOGLOBIN 26.1 pg (29.0-33.0); MEAN CORPUSCULAR HGB CONC 31.9 g/dl (32.0-37.0); MEAN CORPUSCULAR VOLUME 81.8 fl (82.0-101.0); MEAN PLATELET VOLUME 8.5 fl (7.4-10.4); MONOCYTE # 0.6 10^3/ul (0.3-0.9); MONOCYTES % 9.4 % (0.0-11.0); NEUTROPHIL # 3.9 10^3/ul (1.6-7.5); NEUTROPHILS % 65.9 % (39.0-77.0); PLATELET COUNT 322 10^3/UL (140-415); RED BLOOD COUNT 4.79 10^6/ul (4.20-5.40); RED CELL DISTRIBUTION WIDTH 18.3 % (11.5-14.5); WHITE BLOOD COUNT 5.9 10^3/ul (4.8-10.8)
[2017-07-06 07:54] LABS: CALCIUM 9.3 mg/dl (8.4-10.2); CREATININE 0.59 mg/dl (0.44-1.00); MAGNESIUM 1.8 mg/dl (1.7-2.5); POTASSIUM 4.8 mmol/L (3.5-5.1)
[2017-07-06] MEDS: NEOMYC/POLYMYX/HC 10 ML OTIC SUSP BOTH EARS SCH ×3 (09:38→17:14)
[2017-07-06] MEDS: SALMETEROL/FLUTICASONE 500/50 INHA INH SCH (09:38)
[2017-07-06] MEDS: TIOTROPIUM 18 MCG CAPSULE INHA DEV INH SCH (09:39)
[2017-07-06] MEDS: LANSOPRAZOLE 30 MG CAP PO SCH (09:39)
[2017-07-06] MEDS: URSODIOL 250 MG TAB PO SCH (09:39)
[2017-07-06] MEDS: SUCRALFATE (100 MG/ML) 10ML CUP PO SCH ×2 (09:39→13:08)
[2017-07-06] MEDS: METOPROLOL (XL) 25 MG TAB PO SCH (09:40)
[2017-07-06] MEDS: CILOSTAZOL 100 MG TAB PO SCH (09:41)
[2017-07-06] MEDS: CEFTRIAXONE 1 GM/50 ML (PMX) 50 ML IVPB SCH (09:48)
[2017-07-06] MEDS: VITAMIN B COMPLEX/VIT C CAP PO SCH (09:48)
[2017-07-06] MEDS: HEPARIN 5,000 UNIT/0.5 ML VIAL SC SCH (09:51)
[2017-07-06] MEDS: ACETAMINOPHEN 325 MG TAB PO PRN (09:53)
--- NOTE | 2017-07-06 15:52 | DS ---
Date/Time of Note Date/Time of Note DATE: 07/06/17 TIME: 15:47 Discharge Summary Admission/Discharge Info Admit Date/Time Jul 03, 2017 at 21:29 Discharge Date/Time Discharge Diagnosis 1. Near syncope. Most probably secondary to vasovagal response. 2. Positive urinalysis with negative urine cultures. 3. COPD. 4. Essential hypertension. Patient Condition: Stable Procedures Carotid Doppler IMPRESSION: 1. Less than 50% stenosis bilaterally in the internal carotid arteries. 2. Normal antegrade flow in the vertebral arteries bilaterally. Brain CT IMPRESSION: 1. Atrophy. 2. Microangiopathic ischemic change. 3. Atherosclerosis. 4. No intracranial hemorrhage. 5. Otherwise unremarkable noncontrast CT scan of the brain. 6. No change from 04/22/2017. CXR IMPRESSION: 1. No change from the 05/04/2017 chest radiograph. Hx of Present Illness This is a 76-year-old female with a history of hypertension and COPD who was brought to the ER after she almost fainted. The patient has been complaining of dysuria as well as pain in the suprapubic area. She had lost control of her bladder and she looked dizzy and almost passed out. No chest pain, shortness of breath, palpitations reported. The patient was admitted here about 2 months ago for a near syncope after blunt head trauma. Her head CT was negative for acute findings. At that time she was discharged to acute rehab. When she presented to the ER this time, vitals were stable. Labs showed a WBC of 11,000 , potassium 5.4, bicarb 35. Urinalysis was consistent with UTI. EKG had no ST- T wave abnormality. . Hospital Course The patient was admitted to inpatient telemetry floor. The patient's etiology for near syncope was extensively evaluated. The patient's brain CT scan was negative for any acute findings. The patient's carotid Doppler study showed less than 50% stenosis bilaterally in the internal carotid arteries with normal antegrade flow in the vertebral arteries bilaterally. The patient is already on Pletal which was continued. Orthostatic vital signs were ordered. However because of unclear reasons, no orthostatic vital signs were recorded on the patient's chart. The patient was evaluated by physical therapy. Physical therapy recommended home health physical therapy along with front wheel walker upon discharge. This has been arranged. The patient has underlying essential hypertension. She was maintained on beta- blockers for the same. The patient recently had a 2D echocardiogram done in March 2017 that showed an ejection fraction of 55%. Hence this was not repeated. The patient had evidence of underlying urinary tract infection with positive urinalysis. Consequently, the patient was started on empiric antibiotics for any underlying urinary tract infection. Nevertheless, the patient's urine culture remained negative. It is highly suspected that the patient's underlying near syncope was probably secondary to vasovagal response since the patient had loss of bladder control prior to the reported episode of near syncope. The patient has underlying COPD. She was maintained on inhaled bronchodilators. The patient had no evidence of any COPD exacerbation. The patient had a stable hospital course. The patient is stable to be discharged home with home health. Case discussed with Dr. Haq. Home Meds Active Scripts Ciprofloxacin Hcl* (Ciprofloxacin Hcl*) 500 Mg Tablet, 500 MG PO BID, #14 TAB Prov:LOUISA CUEVASNELL 07/05/17 Reported Medications Propylene Glycol/Peg 400 (SYSTANE GEL EYE DROPS) 10 Ml Drops.gel, 1 DROP BOTH EYES QID Y for DRY EYES, #1 BOTTLE 07/03/17 Spironolactone* (Aldactone*) 25 Mg Tablet, 25 MG PO DAILY, #30 TAB 07/03/17 Metoclopramide* (Reglan*) 10 Mg Tablet, 10 MG PO TID, TAB 07/03/17 Isosorbide Mononitrate* (Isosorbide Mononitrate*) 60 Mg Tab.er.24h, 60 MG PO BID , TAB 07/03/17 Metoprolol Succinate* (Toprol XL*) 25 Mg Tab.sr.24h, 25 MG PO BID, #30 TAB 07/03/17 Sucralfate* (Carafate*) 1 Gm/10 Ml Susp, 1 GM PO TID, EA 07/03/17 Omeprazole* (Omeprazole*) 20 Mg Capsule.dr, 20 MG PO DAILY, #30 CAP 07/03/17 Neomycin/Polymyxin/Hydrocort* (Cortisporin* Otic) 10 Ml Susp, 1 DROP QID, #1 EA instill 1 drop into affected ear Four times daily for 7 days 07/03/17 Lansoprazole* (Lansoprazole*) 30 Mg Capsule.dr, 30 MG PO BID, CAP 07/03/17 Vitamin B Complex/Vit C (Total B with C) 1 Each Tablet, 1 EACH PO DAILY, TAB 04/22/17 Ursodiol* (Ursodiol*) 250 Mg Tablet, 250 MG PO BID, TAB 04/22/17 Tramadol Hcl* (Ultram*) 50 Mg Tablet, 50 MG PO Q6H Y for PAIN, TAB 04/22/17 Tiotropium [place]* (Spiriva*) 18 Mcg Cap.w.dev, 1 CAP INHALATION DAILY, #30 CAP 04/22/17 Simvastatin* (Zocor*) 10 Mg Tablet, 10 MG PO QHS, #30 TAB 04/22/17 Nitroglycerin* (Nitrostat*) 0.4 Mg Tab.subl, 0.4 MG SL Q5MIN Y for CHEST PAIN, BOTTLE 04/22/17 Multivitamin with Minerals (Multivitamins with Minerals) 1 Each Tablet, 1 EACH PO DAILY, TAB 04/22/17 Salmeterol Xinaf-Fluticasone* (Advair*) 500/50 Diskus Inhaler, 1 INH INHALATION BID, #1 INHALER 04/22/17 [place]-3 Fatty Acids/Fish Oil (Fish Oil 1,000 mg Capsule) 1 Each Capsule, 1 EACH PO DAILY, CAP 04/22/17 Cilostazol* (Cilostazol*) 50 Mg Tablet, 50 MG PO BID, TAB 04/22/17 Calcium Carbonate-Vitamin D3 (Calcium 500 + D Tablet) 1 Each Tablet, 1 TAB PO BID, TAB 04/22/17 Albuterol/Ipratropium* (Combivent Respimat*) 20-100 Mcg/Inh - 4 Gm Aer.w.adap, 1 PUFF INHALATION QID, #1 INHALER 04/22/17 Discontinued Reported Medications Oxybutynin Chloride* (Ditropan*) 5 Mg Tablet, 2.5 MG PO TID, TAB 07/03/17 Sucralfate* (Carafate*) 1 Gm/10 Ml Susp, 1 GM PO QID, EA 04/22/17 Ranolazine* (Ranexa*) 1,000 Mg Tab.sr.12h, 1000 MG PO DAILY, TAB 04/22/17 Pantoprazole* (Pantoprazole*) 40 Mg Tablet.dr, 40 MG PO AC BREAKFAST, TAB 04/22/17 Metoprolol Tartrate* (Lopressor*) 25 Mg Tab, 25 MG PO BID, #60 TAB 04/22/17 Isosorbide Mononitrate* (Isosorbide Mononitrate*) 60 Mg Tab.er.24h, 60 MG PO BID , TAB 04/22/17 Furosemide* (Furosemide*) 20 Mg Tablet, 20 MG PO DAILY, #60 TAB 04/22/17 Follow-up Plan 1. Follow up with your primary care provider in one week Primary Care Provider Danny Castellanos Time spent on discharge: > 30 minutes Pending Labs Laboratory Tests Test 07/06/17 07:11 07/06/17 07:12 Sodium Level 137mmol/L (135-144) Potassium Level 4.8mmol/L (3.5-5.1) Chloride Level 96mmol/L (97-110) Carbon Dioxide Level 36mmol/L (21-31) Anion Gap 10 (8-16) Blood Urea Nitrogen 12mg/dl (7-20) Creatinine 0.59mg/dl (0.44-1.00) Glucose Level 91mg/dl (70-220) Calcium Level 9.3mg/dl (8.4-10.2) Magnesium Level 1.8mg/dl (1.7-2.5) White Blood Count 5.910^3/ul (4.8-10.8) Red Blood Count 4.7910^6/ul (4.20-5.40) Hemoglobin 12.5g/dl (12.0-16.0) Hematocrit 39.2% (37.0-47.0) Mean Corpuscular Volume 81.8fl (82.0-101.0) Mean Corpuscular Hemoglobin 26.1pg (29.0-33.0) Mean Corpuscular Hemoglobin Concent 31.9g/dl (32.0-37.0) Red Cell Distribution Width 18.3% (11.5-14.5) Platelet Count 00663^3/UL (140-415) Mean Platelet Volume 8.5fl (7.4-10.4) Neutrophils % 65.9% (39.0-77.0) Lymphocytes % 19.0% (15.0-51.0) Monocytes % 9.4% (0.0-11.0) Eosinophils % 4.4% (0.0-7.0) Basophils % 1.0% (0.0-2.0) Nucleated Red Blood Cells % 0.0/100WBC (0.0-0.0) Neutrophils # 3.910^3/ul (1.6-7.5) Lymphocytes # 1.110^3/ul (0.8-2.9) Monocytes # 0.610^3/ul (0.3-0.9) Eosinophils # 0.310^3/ul (0.0-0.5) Basophils # 0.110^3/ul (0.0-0.1) Nucleated Red Blood Cells # 0.010^3/ul (0.0-0.0) MARIA INES BAEZ NP Jul 06, 2017 15:52
== END 2017-07-06 17:15 | disposition home health service (06) ==
LOC: E/R 19:55 → INTOOBSV 21:29 → MS4 21:29
PROVIDERS: ADMIT Internal Medicine; ATTEND Internal Medicine
DX: R55 Syncope and collapse (principal); J44.9 Chronic obstructive pulmonary disease, unspecified; N39.0 Urinary tract infection, site not specified; K21.9 Gastro-esophageal reflux disease without esophagitis; E87.6 Hypokalemia; I25.2 Old myocardial infarction; E78.5 Hyperlipidemia, unspecified; I11.0 Hypertensive heart disease with heart failure; I50.9 Heart failure, unspecified; Z86.73 Personal history of transient ischemic attack (TIA), and cerebral infarction without residual deficits
CPT/HCPCS: 36415; 70450; 71010; 80048; 80053; 80061; 81001; 82550; 82553; 83036; 83690; 83735; 84100; 84439; 84443; 84484; 85025; 85610; 87086; 93005; 93880; 94664; 96374; 97162; 99285; G0378; J0696; J1644; J3475; J7030; 99217

== ENCOUNTER 2018-01-02 03:11 | Inpatient (IN) | END 2018-01-04 13:53 | disposition home or self-care (01) | DRG 291 ==

== ENCOUNTER 2018-03-11 15:44 | Emergency (ER) | END 2018-03-11 19:16 | disposition home or self-care (01) ==

== ENCOUNTER 2018-06-23 22:25 | Observation (INO) | END 2018-06-25 18:18 | disposition home or self-care (01) ==